=== PATIENT | male | born 1930 | race Caucasian/White ===

== ENCOUNTER → 2017-09-10 | Outpatient (CLI) | payer MEDICARE ==
[~2017-09-10] MED LIST: ASPIR 8181 MG PO; ATORVASTATIN CA40 MG PO; BENTYL10 MG PO; DIAZEPAM5 MG PO; ELMIRON100 MG PO; HCTZ PO; LOSARTAN POTASS25 MG PO; LOSARTAN POTASS50 MG PEG; METOPROLOL PO; METOPROLOL TART25 MG PO; MIRALAX17 GM; OMEPRAZOLE20 M1 PO; PANTOPRAZOLE SO40 MG PO; PLAVIX75 MG PO; STOOL SOFTENER50 MG PO; STOOL SOFTNERS PO; WARFARIN PO; XARELTO20 MG PO; ZOLOFT50 MG PO
--- NOTE | 2017-09-10 17:56 | Diagnostic Imaging Report ---
PROCEDURE: Frontal and lateral views of the chest. COMPARISON: Chest radiograph 05/12/2017 INDICATIONS: MESOTHELIOMA FINDINGS: Lines/tubes: Left chest wall port tip overlying the azygos vein, unchanged. Lungs: The lungs are well inflated. Linear opacities in the right lung base with diaphragmatic tenting likely represents atelectasis. Pleura: Mildly increased small right pleural effusion versus pleural thickening. There is no pneumothorax. Heart and mediastinum: Tortuous aorta with mild calcifications. Otherwise, the heart and the mediastinum are normal. Bones: No acute bony abnormality. IMPRESSION: 1. Mildly increased small right pleural effusion versus pleural thickening. 2. Left chest wall port tip again noted to project over the azygos vein. Dictated by: Jseus Damon M.D. on 09/10/2017 at 17:56 Electronically approved by: Jesus Damon M.D. on 09/10/2017 at 17:56
== END ==
LOC: RAD 16:06
PROVIDERS: ATTEND Internal Medicine Cardiovascular Disease
DX: C45.0 Mesothelioma of pleura (principal); C80.1 Malignant (primary) neoplasm, unspecified; I82.409 Acute embolism and thrombosis of unspecified deep veins of unspecified lower extremity; I26.99 Other pulmonary embolism without acute cor pulmonale
CPT/HCPCS: 71046

== ENCOUNTER → 2018-01-19 | Outpatient (CLI) | payer MEDICARE | LOC: RESP 08:37 | PROVIDERS: ATTEND Internal Medicine Critical Care Medicine | DX: I82.409 Acute embolism and thrombosis of unspecified deep veins of unspecified lower extremity (principal); I26.99 Other pulmonary embolism without acute cor pulmonale; C45.0 Mesothelioma of pleura; C80.1 Malignant (primary) neoplasm, unspecified | CPT/HCPCS: 94060; 94727; 94729 ==

== ENCOUNTER 2019-08-11 12:31 | Emergency (ER) | payer MEDICARE ==
[~2019-08-11] VITALS: Ht 172.7 cm; Wt 63.0 kg
--- OUTSIDE RECORDS SUMMARY | 2019-08-11 12:37 | XMS REPORT ---
Author Author [facility] Address Unknown Phone Unavailable Care Team Providers Care Maintenance And Utilities Supervisor Name Role Phone Dolores PETERS Unavailable Unavailable Madalyn PRESTON Unavailable Unavailable GENE GUZMAN Unavailable Unavailable NANCY MARKS Unavailable Unavailable Payers Payer Name Policy Type Policy Number Effective Date Expiration Date Problems This patient has no known problems. Allergies, Adverse Reactions, Alerts Allergy Name Allergy Type Status Severity Reaction(s) Onset Date Inactive Date Treating Clinician Comments No Known Allergies DA Active U 2018-11-26 00:00:00 No Known Allergies DA Active U 2018-11-25 00:00:00 No Known Allergies DA Active U 2017-07-23 00:00:00 No Known Allergies DA Active U 2014-06-08 00:00:00 Medications This patient has no known medications. Encounters Start Date/Time End Date/Time Encounter Type Admission Type Attending Clinicians Care Facility Care Department Encounter ID 2019-03-10 08:27:31 Outpatient [facility] [id number] Results Test Description Test Time Test Comments Text Results Atomic Results Result Comments PLEURAL FLUID 2019-08-04 16:55:00 RUN DATE: 08/04/19 [place] [facility] PAGE 1 RUN TIME: 1655 Specimen Inquiry RUN USER: INTERFACE PATIENT: SUSAN VAN LOC: [place] U #: [id number] AGE/SX: 88/M ROOM: 2047 RE07/28/19REG DR: Gene Guzman MD : 32 BED: A DIS: STATUS: ADM IN TLOC: SPEC #: [id number] RECD: 08/03/19 STATUS: LAMBERTO REQ #: [id number] REINIER: 08/02/19- SUBM DR: Dread Garrett MD ENTERED: 08/03/19 SP TYPE: PLEURAL FL OTHR DR: Luisito Lagunas MD, George M MD Tahir, Faiza MDORDERED: GROSS [place]: [place] [address] [place] [address] Dread Garrett MD [address] [place] [address] Shoshana Preston MD [address] [facility] [address] [place] [address] [place] [address] [place] [address] PROCEDURES: GROSS (08/04/19-1440) TISSUES: PLEURAL FLUID, NOS - 30 ML DARK REDDEST BROWN CLINICAL HISTORY COLLECTION DATE: 08/02/2019 PLEURAL EFFUSION; MESOTHELIOMA COMMENT Intradepartmental consultation: DMW. CONTINUED ON NEXT PAGE RUN DATE: 08/04/19 [facility] PAGE 2 RUN TIME: 1655 Specimen Inquiry RUN USER: INTERFACE SPEC #: [id number] PATIENT: SUSAN VAN #[id number] (Continued) FINAL DIAGNOSIS Pleural fluid, thoracentesis: NON-DIAGNOSTIC FEW MIXED INFLAMMATORY CELLS IN HEAVY BACKGROUND OF BLOOD RRB/camila D 03970, 04782 MACROSCOPIC The specimen is designated "pleural fluid" and consists of 30 mL of dark red-brown fluid for concentration and evaluation. GROSS PERFORMED AT [facility] [address] [place] [address] [phone] MICROSCOPIC Two smear slides, a cytospin and cell block are prepared from the fluid. A heavy background of blood is present. Only a few scattered mixed inflammatory cells are seen. A few nuclei are present that are stripped of cytoplasm that may represent degenerating mesothelial type cells. No cytologically atypical cells are appreciated. Correlation is necessary. All of the stains, including any controls performed, stain appropriately. MICROSCOPIC PERFORMED AT [facility] [address] [place] [address] (p)[phone] PERFORMING SITE Diagnosis performed at: [facility] [address] [place], [place] [address] CONTINUED ON NEXT PAGE RUN DATE: 08/04/19 [place] [facility] PAGE 3 RUN TIME: 1655 Specimen Inquiry RUN USER: INTERFACE SPEC #: [id number] PATIENT: SUSAN VAN #[id number] (Continued) Signed SIGNATURE ON FILE Jaylen Davenport MD 08/04/19 1655 END OF REPORT BODY FLUID CELL CT/DIFF 2019-08-03 09:51:00 FLUID SOURCE (test code=SOURCEFL) PLEURAL FLD FLUID COLOR (test code=COLFL) RED COLORLESS FLUID APPEARANCE (test code=APPFL) HAZY FLUID WBC AUTO (test code=WBCFLA) 113 cells/uL FLUID RBC AUTO (test code=RBCFLA) 341608 cells/uL FLUID TOTAL CELLS (test code=TCFL) 114 cells/uL >0 Fluid WBC RBC PMN% MN%Type cells/uL cells/uL CSF (0-5) n/a (2+/-4) (90+/-20)Peritoneal n/a n/a n/a n/aPleural n/a n/a n/a n/aSynovial <200 n/a <25% <75% CSF (0-30) n/a (4+/-4) (90+/-20) FLUID POLY (test code=POLYFL) 59.0 % FLUID LYMPHOCYTE (test code=LYMPHFL) 33.0 % FLUID MACROPHAGE (test code=MACFL) 8.0 % FLUID COMMENT (test code=COMFL) PATHOLOGST.TO REVIEW TOTAL CELLS COUNTED ON DIFF (test code=TOTCELLFL) 100 cells REVIEWED BY (test code=REVIEW) PATHOLOGIST Reviewed by OMAR Joshua:BLOODY SAMPLE. FLUID [id number] 09:51:00* Test Item Value Reference Range Comments FLUID PH (test code=PHFL) 7.0 6.8-7.6 FLUID [id number] 09:51:00* Test Item Value Reference Range Comments FLUID GLUCOSE (test code=GLUFL) 61 mg/dL FLUID [id number] 09:51:00* Test Item Value Reference Range Comments FLUID PROTEIN (test code=PROTFL) 2.9 gram/dL FLUID [id number] 09:51:00* Test Item Value Reference Range Comments FLUID LDH (test code=LDHFL) 625 IUnit/L - SP THORACENTESIS [id number] 08:49:00 Name: SUSAN VAN [facility] : 1930 Age/S: 88 / M [address] Unit #: [id number] Loc: [place] [address] Phys: Shoshana Preston MD Acct: [id number] Dis Date: Status: PRE CLI PHONE #: [phone] Exam Date: 08/02/2019 1710 FAX #: [phone] Reason: / EXAMS: CPT CODE: [id number] SP THORACENTESIS W/IMAG 95005 Fluoro Time: DAP (Gy m2): Air Kerma (mGy): REASON FOR EXAM: Loculated right pleural effusion. PROCEDURE: Ultrasound and CT-guided aspiration of right subpulmonic loculated pleural effusion Location:[facility] Bpfp-up-tdlt procedure time is approximately: 45 minutes FINDINGS: After informed consent was obtained, the patient was brought to CT and placed supine on the table. All elements of maximal sterile barrier technique were followed. Prior to the biopsy, axial images of the lower chest were obtained without intravenous contrast. Images of the CT were reviewed and the loculated subpulmonic right pleural effusion was localized. A safe pathway was found between the subcutaneous entry site and the loculated subpulmonic right pleural effusion. The access site was prepped and draped in the usual sterile fashion. A guiding needle was advanced into loculated subpulmonic right pleural effusion. Attempt to aspirate fluid was not successful. Ultrasound was then used to visualize the fluid portion of the loculated effusion. Under ultrasound guidance, a guiding needle was advanced into the fluid pocket. CT was used to reconfirm the location of the needle tip. A guidewire was inserted and the tract was dilated to accept an 8 Burmese pigtail drainage tube. Approximately 100 cc of dark brownish exudative fluid was removed. Samples were submitted to the lab for analysis. The catheter was then removed MEDICATIONS: 1 mg of Dilaudid COMPLICATIONS: No immediate Blood loss: Less than 5 mL Fluoroscopic dose:342 mGy IMPRES FABIAN: Technically successful percutaneous drainage of loculated subpulmo celestino right pleural effusion. at 0849 Reported and signed by: Dread Garrett M.D. PAGE 1 Signed Report (CONTIN UED) Name: SUSAN VAN [facility] : 1930 Age/S: 88 / M [address] Unit #: [id number] Loc: [place] [address] Phys: Shoshana Salmeron MD Acct: [id number] Dis Date: Status: PRE CLI PHONE #: [phone] Exam Date: 08/02/2019 1710 FAX #: Reason: / EXAMS: CPT CODE: [id number] SP THORACE NTESIS W/IMAG 34761 Fluoro Time: DAP ( Gy m2): Air Kerma (mGy): <Continued> CC: Gene Guzman MD; Shoshana Preston MD Technologist: NEDRA MOBLEY [facility] Trnscb Date/Time: 08/03/2019 (0849) RimaWYL PAGE 2 Signed Report - XR CHEST 1 [id number] 21:40:00 FAX: Gene Hernandez MD [phone] Leonardo: St: ADM Name: SUSAN GONG [facility] : [birth year] Age/S: 88/M [address] Unit #: [id number] Loc: [address] [place] [address] Phys: Dread Garrett MD Acct: [id number] Dis Date: Status: ADM IN PHONE #: [phone] Exam Date: 08/02/20192137 FAX #: [phone] Reason: S/P THORACENTESIS EXAMS: CPT CODE: [id number] XR CHEST 1 V 88852 REASON FOR EXAM: S/P THORA CENTESIS Exam Order Date: 08/02/2019 7:00 PM Ordering M.D.: Dread Garrett MD PROCEDURE: - XR CHEST 1 V COMP ARISON: CT chest earlier today at 11:06 AM FINDINGS: Right pleural pigtail catheter is redemonstrated however the patient has underg one interval drainage of a subpulmonic effusion. There are airspac e opacities in the mid to lower right lung zone which may represent any co mbination of residual effusion, atelectasis, and pneumonia. Loculated righ t pleural effusion also remains along the chest wall. Left lung is clear. Port-A-Cath is stable in position. Cardiomediastinal silhouette appears mildly prominent but is stable in size. Musculoskeletal struct ures are unchanged. Left humeral arthroplasty is again seen. IMP RESSION: Opacities in the mid to lower right lung following thoracentesi s may represent any comminution of residual effusion, atelectasis, and pneumonia. Location: [facility] Electronically Sig reyna by Reg Phillip MD on 08/02/2019 at 2140 Reported and signed by: Reg Phillip MD CC: Gene Guzman MD Technologist: URBAN BURNHAM RT; Elva Rojas(R) Trnscrd Date/Time/By: 08/02/2019 (2139) : By: [email or web address] Orig Print D/T: S: 08/02/2019 (2142) PAGE 1 Signed Report BODY FLUID CELL [id number] 20:01:00* Test Item Value Reference Range Comments FLUID SOURCE (test code=SOURCEFL) PLEURAL FLD FLUID COLOR (test code=COLFL) RED COLORLESS FLUID APPEARANCE (test code=APPFL) HAZY FLUID WBC AUTO (test code=WBCFLA) 113 cells/uL FLUID RBC AUTO (test code=RBCFLA) 655101 cells/uL FLUID TOTAL CELLS (test code=TCFL) 114 cells/uL >0 Fluid WBC RBC PMN% MN%Type cells/uL cells/uL CSF (0-5) n/a (2+/-4) (90+/-20)Peritoneal n/a n/a n/a n/aPleural n/a n/a n/a n/aSynovial <200 n/a <25% <75% CSF (0-30) n/a (4+/-4) (90+/-20) FLUID POLY (test code=POLYFL) 59.0 % FLUID LYMPHOCYTE (test code=LYMPHFL) 33.0 % FLUID MACROPHAGE (test code=MACFL) 8.0 % FLUID COMMENT (test code=COMFL) PATHOLOGST.TO REVIEW TOTAL CELLS COUNTED ON DIFF (test code=TOTCELLFL) 100 cells REVIEWED BY (test code=REVIEW) PATHOLOGIST FLUID [id number] 20:01:00* Test Item Value Reference Range Comments FLUID PH (test code=PHFL) 7.0 6.8-7.6 FLUID [id number] 20:01:00* Test Item Value Reference Range Comments FLUID GLUCOSE (test code=GLUFL) 61 mg/dL FLUID [id number] 20:01:00* Test Item Value Reference Range Comments FLUID PROTEIN (test code=PROTFL) 2.9 gram/dL FLUID [id number] 20:01:00* Test Item Value Reference Range Comments FLUID LDH (test code=LDHFL) 625 IUnit/L BODY FLUID CELL [id number] 18:38:00* Test Item Value Reference Range Comments FLUID SOURCE (test code=SOURCEFL) PLEURAL FLD FLUID COLOR (test code=COLFL) RED COLORLESS FLUID APPEARANCE (test code=APPFL) HAZY FLUID WBC AUTO (test code=WBCFLA) 113 cells/uL FLUID RBC AUTO (test code=RBCFLA) 575341 cells/uL FLUID TOTAL CELLS (test code=TCFL) 114 cells/uL >0 Fluid WBC RBC PMN% MN%Type cells/uL cells/uL CSF (0-5) n/a (2+/-4) (90+/-20)Peritoneal n/a n/a n/a n/aPleural n/a n/a n/a n/aSynovial <200 n/a <25% <75% CSF (0-30) n/a (4+/-4) (90+/-20) TOTAL CELLS COUNTED ON DIFF (test code=TOTCELLFL) cells REVIEWED BY (test code=REVIEW) PATHOLOGIST FLUID [id number] 18:38:00* Test Item Value Reference Range Comments FLUID PH (test code=PHFL) 7.0 6.8-7.6 FLUID [id number] 18:38:00* Test Item Value Reference Range Comments FLUID GLUCOSE (test code=GLUFL) 61 mg/dL FLUID [id number] 18:38:00* Test Item Value Reference Range Comments FLUID PROTEIN (test code=PROTFL) 2.9 gram/dL FLUID [id number] 18:38:00* Test Item Value Reference Range Comments FLUID LDH (test code=LDHFL) 625 IUnit/L BODY FLUID CELL [id number] 18:36:00* Test Item Value Reference Range Comments FLUID SOURCE (test code=SOURCEFL) PLEURAL FLD FLUID COLOR (test code=COLFL) RED COLORLESS FLUID APPEARANCE (test code=APPFL) HAZY FLUID WBC AUTO (test code=WBCFLA) 113 cells/uL FLUID RBC AUTO (test code=RBCFLA) 174036 cells/uL FLUID TOTAL CELLS (test code=TCFL) 114 cells/uL >0 Fluid WBC RBC PMN% MN%Type cells/uL cells/uL CSF (0-5) n/a (2+/-4) (90+/-20)Peritoneal n/a n/a n/a n/aPleural n/a n/a n/a n/aSynovial <200 n/a <25% <75% CSF (0-30) n/a (4+/-4) (90+/-20) TOTAL CELLS COUNTED ON DIFF (test code=TOTCELLFL) cells REVIEWED BY (test code=REVIEW) PATHOLOGIST FLUID [id number] 18:36:00* Test Item Value Reference Range Comments FLUID PH (test code=PHFL) 6.8-7.6 FLUID [id number] 18:36:00* Test Item Value Reference Range Comments FLUID GLUCOSE (test code=GLUFL) 61 mg/dL FLUID [id number] 18:36:00* Test Item Value Reference Range Comments FLUID PROTEIN (test code=PROTFL) 2.9 gram/dL FLUID [id number] 18:36:00* Test Item Value Reference Range Comments FLUID LDH (test code=LDHFL) 625 IUnit/L BODY FLUID CELL [id number] 18:34:00* Test Item Value Reference Range Comments FLUID SOURCE (test code=SOURCEFL) PLEURAL FLD FLUID COLOR (test code=COLFL) RED COLORLESS FLUID APPEARANCE (test code=APPFL) HAZY FLUID WBC (test code=WBCFL) per mm3 0-150 FLUID WBC AUTO (test code=WBCFLA) 113 cells/uL FLUID RBC (test code=RBCFL) per mm3 0-50 FLUID RBC AUTO (test code=RBCFLA) 118652 cells/uL FLUID TOTAL CELLS (test code=TCFL) 114 cells/uL >0 Fluid WBC RBC PMN% MN%Type cells/uL cells/uL CSF (0-5) n/a (2+/-4) (90+/-20)Peritoneal n/a n/a n/a n/aPleural n/a n/a n/a n/aSynovial <200 n/a <25% <75% CSF (0-30) n/a (4+/-4) (90+/-20) TOTAL CELLS COUNTED ON DIFF (test code=TOTCELLFL) cells REVIEWED BY (test code=REVIEW) PATHOLOGIST FLUID [id number] 18:34:00* Test Item Value Reference Range Comments FLUID PH (test code=PHFL) 6.8-7.6 FLUID [id number] 18:34:00* Test Item Value Reference Range Comments FLUID GLUCOSE (test code=GLUFL) 61 mg/dL FLUID [id number] 18:34:00* Test Item Value Reference Range Comments FLUID PROTEIN (test code=PROTFL) 2.9 gram/dL FLUID [id number] 18:34:00* Test Item Value Reference Range Comments FLUID LDH (test code=LDHFL) 625 IUnit/L BODY FLUID CELL [id number] 18:32:00* Test Item Value Reference Range Comments FLUID SOURCE (test code=SOURCEFL) PLEURAL FLD FLUID COLOR (test code=COLFL) RED COLORLESS FLUID APPEARANCE (test code=APPFL) HAZY FLUID WBC (test code=WBCFL) per mm3 0-150 FLUID RBC (test code=RBCFL) per mm3 0-50 FLUID TOTAL CELLS (test code=TCFL) cells/uL >0 TOTAL CELLS COUNTED ON DIFF (test code=TOTCELLFL) cells REVIEWED BY (test code=REVIEW) PATHOLOGIST FLUID [id number] 18:32:00* Test Item Value Reference Range Comments FLUID PH (test code=PHFL) 6.8-7.6 FLUID [id number] 18:32:00* Test Item Value Reference Range Comments FLUID GLUCOSE (test code=GLUFL) 61 mg/dL FLUID [id number] 18:32:00* Test Item Value Reference Range Comments FLUID PROTEIN (test code=PROTFL) 2.9 gram/dL FLUID [id number] 18:32:00* Test Item Value Reference Range Comments FLUID LDH (test code=LDHFL) 625 IUnit/L BODY FLUID CELL [id number] 18:10:00* Test Item Value Reference Range Comments FLUID SOURCE (test code=SOURCEFL) PLEURAL FLD FLUID COLOR (test code=COLFL) RED COLORLESS FLUID APPEARANCE (test code=APPFL) HAZY FLUID WBC (test code=WBCFL) per mm3 0-150 FLUID RBC (test code=RBCFL) per mm3 0-50 FLUID TOTAL CELLS (test code=TCFL) cells/uL >0 TOTAL CELLS COUNTED ON DIFF (test code=TOTCELLFL) cells REVIEWED BY (test code=REVIEW) PATHOLOGIST FLUID [id number] 18:10:00* Test Item Value Reference Range Comments FLUID PH (test code=PHFL) 6.8-7.6 FLUID [id number] 18:10:00* Test Item Value Reference Range Comments FLUID GLUCOSE (test code=GLUFL) mg/dL FLUID [id number] 18:10:00* Test Item Value Reference Range Comments FLUID PROTEIN (test code=PROTFL) gram/dL FLUID [id number] 18:10:00* Test Item Value Reference Range Comments FLUID LDH (test code=LDHFL) IUnit/L - CT GUID NDL [id number] 17:23:00 Name: SUSAN VAN [facility] : 1930 Age/S: 88 / M [address] [facility] Unit #: [id number] Loc: [place] [address] Phys: Shoshana Preston MD Acct: [id number] Dis Date: Status: PRE CLI PHONE #: [phone] Exam Date: 08/02/2019 1713 FAX #: [phone] Reason: THOROCENTESIS EXAMS: CPT [id number] [facility] [address] REASON FOR EXAM: Loculated right pleural effusion. PROCEDURE: Ultrasound and CT-guided aspiration of right subpulmonic loculated pleural effusion Location:[facility] Krkt-dl-tbaw procedure time is approximately: 45 minutes FINDINGS: After informed consent was obtained, the patient was brought to CT and placed supine on the table. All elements of maximal sterile barrier technique were followed. Prior to the biopsy, axial images of the lower chest were obtained without intravenous contrast. Images of the CT were reviewed and the loculated subpulmonic right pleural effusion was localized. A safe pathway was found between the subcutaneous entry site and the loculated subpulmonic right pleural effusion. The access site was prepped and draped in the usual sterile fashion. A guiding needle was advanced into loculated subpulmonic right pleural effusion. Attempt to aspirate fluid was not successful. Ultrasound was then used to visualize the fluid portion of the loculated effusion. Under ultrasound guidance, a guiding needle was advanced into the fluid pocket. CT was used to reconfirm the location of the needle tip. A guidewire was inserted and the tract was dilated to accept an 8 Burmese pigtail drainage tube. Approximately 100 cc of dark brownish exudative fluid was removed. Samples were submitted to the lab for analysis. The catheter was then removed MEDICATIONS: 1 mg of Dilaudid COMPLICATIONS: No immediate Blood loss: Less than 5 mL Fluoroscopic dose:342 mGy IMPRESSION: Technically successful percutaneous drainage of loculated subpulmonic right pleural effusion. at 1723 Reported and signed by: Dread Garrett M.D. PAGE 1 Signed Report (CONTINUED) Name: SUSAN VAN [facility] : 1930 Age/S: 88 / M [address] [facility] Unit #: [id number] Loc: [place] [address] Phys: Shoshana Preston MD Acct: [id number] Dis Date: Status: PRE CLI PHONE #: [phone] Exam Date: 08/02/2019 1713 FAX #: [phone] Reason: THOROCENTESIS EXAMS: CPT CODE: [id number] CT GUID NDL [facility] [address] <Continued> CC: Gene Guzman MD; Shoshana Preston MD Technologist:GERARD LUCAS, RT(R) CT CTDI: DLP: Trnscb Date/Time: 08/02/2019 (172) t.SDR.VTL Orig Print D/T: S: 08/02/2019 (1725) PAGE 2 Signed Report - CT CHEST W/O [id number] 12:07:00 Name: SUSAN VAN [facility] : 1930 Age/S: 88 / M [address] Unit #: [id number] Loc: [place] [address] Phys: Geeta Cedillo MD Acct: [id number] Di s Date: Status: ADM IN PHONE #: [phone] Exam Date: 08/02/2019 1113 FAX #: Reason: abscess EXAMS: CPT CODE: [id number] CT CHEST W/O CONTRAST 26815 HISTORY: Abscess. COMPARISON: CT chest from July 28, 2019. Location: [facility]. CT chest without contrast: Automated exposure control. Persistent loculated right costal pleural effusion demonstrating no si gnificant change. Small pleural catheter from a right anterior approach no ny again. Persistent bibasal segmental atelectasis and patchy infiltrate as well. No honeycombing or fibrosis or traction bronchiectasis. Loss of r ight lung volume and shift the mediastinum towards the left. Compensatory hyperinflation of the left lung. Small left effusion with dependent change s. Fusiform aneurysmal dilatation of the ascending aorta at 3.5 cm . Descending aorta is not aneurysmal. Normal caliber unopacified pul monary arteries. Right Port-A-Cath with the tip within the SVC. Unremarkab le thyroid glands. Esophageal wall is mildly thickened. Correlate for esop hagitis. No pathologic adenopathy. Cardiomegaly with moderate pericardial effusion. Correlate with echocardiography. Visualized upper abdome n demonstrating hyperplastic left adrenal. The subcutaneous tissues and th e musculature are normal in appearance. No lytic or blastic lesions are no ny within the bony skeleton. 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 IMPRESSION: Unchanged loculated small right lateral costal pleural effusion with subsegmental atelectasis and patchy right b malinda infiltrate. Small pigtail catheter from anterior approach noted aga in. No pathologic adenopathy. Mildly thickened esophageal wall. Correlat e for esophagitis. Stable ascending aortic aneurysm at 3.5 cm. at 1207 Reported and signed by: Balwinder Sherwood M.D. PAGE 1 Signed Report (CONTINUED) Na me: SUSAN VAN [facility] : Age/S: 88 / M [address] [facility] Unit #: [id number] Loc: [place], [place] [address] Phys: Cat Cedillo Acct: [id number] Dis Da te: Status: ADM IN PHONE #: Exam Date: 08/02/2019 1113 FAX #: [phone] Reason: abscess EXAMS: CPT CODE: [id number] CT CHEST W/O CONT RAST [address]240 <Continued> CC: Gene Guzman MD; Cat Cedillo MD Technologist:Monie Garcia,RT(R),CT CTDI: DLP: Trnscb Date/Time: 08/02/2019 (7471) t.HARRIETTR.TH4 Orig Print D/T: S: 08/02/2019 (5846) PAGE 2 Signed Report COMPREHENSIVE METABOLIC [id number] 05:29:00* Test Item Value Reference Range Comments SODIUM (test code=NA) 134 mmol/L 136-145 POTASSIUM (test code=K) 3.5 mmol/L 3.5-5.1 CHLORIDE (test code=CL) 101.0 mmol/L 98-107 CARBON DIOXIDE (test code=CO2) 24.0 mmol/L 21-32 ANION GAP (test code=GAP) 12.5 10-20 GLUCOSE (test code=GLU) 88 mg/dL 74-106 BLOOD UREA NITROGEN (test code=BUN) 13 mg/dL 7-18 GLOMERULAR FILTRATION RATE (test code=GFR) > 60 mL/min >=60 Estimated GFR by using Modified MDRD formula.Chronic kidney disease is defined as either kidney damageor GFR <60 mL/min/1.73 m2 for >3 months. CREATININE (test code=CREAT) 0.60 mg/dL 0.7-1.3 BUN/CREATININE RATIO (test code=BUN/CREA) 21.7 10-20 TOTAL PROTEIN (test code=PROT) 6.1 gram/dL 6.4-8.2 ALBUMIN (test code=ALB) 2.1 g/dL 3.4-5.0 GLOBULIN (test code=GLOB) 4.0 gram/dL 2.7-4.2 ALBUMIN/GLOBULIN RATIO (test code=A/G) 0.5 0.75-1.50 CALCIUM (test code=CA) 8.1 mg/dL 8.5-10.1 BILIRUBIN TOTAL (test code=BILT) 0.60 mg/dL 0.0-1.0 SGOT/AST (test code=AST) 22 IUnit/L 15-37 SGPT/ALT (test code=ALT) 12 IUnit/L 12-78 ALKALINE PHOSPHATASE TOTAL (test code=ALKP) 103 IUnit/L 45-117 Note change in reference range due to change in reagent. COMPREHENSIVE METABOLIC [id number] 05:22:00* Test Item Value Reference Range Comments SODIUM (test code=NA) 134 mmol/L 136-145 POTASSIUM (test code=K) 3.5 mmol/L 3.5-5.1 CHLORIDE (test code=CL) 101.0 mmol/L 98-107 CARBON DIOXIDE (test code=CO2) mmol/L 21-32 ANION GAP (test code=GAP) 10-20 GLUCOSE (test code=GLU) mg/dL 74-106 BLOOD UREA NITROGEN (test code=BUN) mg/dL 7-18 GLOMERULAR FILTRATION RATE (test code=GFR) mL/min >=60 CREATININE (test code=CREAT) mg/dL 0.7-1.3 BUN/CREATININE RATIO (test code=BUN/CREA) 10-20 TOTAL PROTEIN (test code=PROT) gram/dL 6.4-8.2 ALBUMIN (test code=ALB) g/dL 3.4-5.0 GLOBULIN (test code=GLOB) gram/dL 2.7-4.2 ALBUMIN/GLOBULIN RATIO (test code=A/G) 0.75-1.50 CALCIUM (test code=CA) mg/dL 8.5-10.1 BILIRUBIN TOTAL (test code=BILT) mg/dL 0.0-1.0 SGOT/AST (test code=AST) IUnit/L 15-37 SGPT/ALT (test code=ALT) IUnit/L 12-78 ALKALINE PHOSPHATASE TOTAL (test code=ALKP) IUnit/L 45-117 CBC W/AUTO [id number] 05:00:00* Test Item Value Reference Range Comments WHITE BLOOD CELL (test code=WBC) 6.0 K/mm3 4.5-12.5 RED BLOOD CELL (test code=RBC) 3.32 mill/mm3 4.0-5.8 HEMOGLOBIN (test code=HGB) 10.2 gram/dL 13.0-17.5 HEMATOCRIT (test code=HCT) 30.7 % 42.0-52.0 MEAN CELL VOLUME (test code=MCV) 92.5 fL 80-98 MEAN CELL HGB (test code=MCH) 30.7 picogram 27.0-33.0 MEAN CELL HGB CONCETRATION (test code=MCHC) 33.2 gram/dL 33.0-36.0 RED CELL DISTRIBUTION WIDTH (test code=RDW) 15.9 % 11.6-16.2 RED CELL DISTRIBUTION WIDTH SD (test code=RDW-SD) 53.2 fL 37.0-51.0 PLATELET COUNT (test code=PLT) 218 K/mm3 150-450 MEAN PLATELET VOLUME (test code=MPV) 9.1 fL 6.7-11.0 NEUTROPHIL % (test code=NT%) 68.7 % 39.0-69.0 IMMATURE GRANULOCYTE % (test code=IG%) 1.2 % 0.0-5.0 LYMPHOCYTE % (test code=LY%) 12.4 % 25.0-55.0 MONOCYTE % (test code=MO%) 12.7 % 0.0-10.0 EOSINOPHIL % (test code=EO%) 4.2 % 0.0-5.0 BASOPHIL % (test code=BA%) 0.8 % 0.0-1.0 NUCLEATED RBC % (test code=NRBC%) 0.0 % 0-0 NEUTROPHIL # (test code=NT#) 4.10 K/mm3 1.8-7.7 IMMATURE GRANULOCYTE # (test code=IG#) 0.07 x10 3/uL 0-0.03 LYMPHOCYTE # (test code=LY#) 0.74 K/mm3 1.0-5.0 MONOCYTE # (test code=MO#) 0.76 K/mm3 0-0.8 EOSINOPHIL # (test code=EO#) 0.25 K/mm3 0.0-0.5 BASOPHIL # (test code=BA#) 0.05 K/mm3 0.0-0.2 NUCLEATED RBC # (test code=NRBC#) 0.00 K/mm3 0.0-0.1 MANUAL DIFF REQUIRED (test code=MDIFF) NO BASIC METABOLIC [id number] 05:47:00* Test Item Value Reference Range Comments SODIUM (test code=NA) 135 mmol/L 136-145 POTASSIUM (test code=K) 3.7 mmol/L 3.5-5.1 CHLORIDE (test code=CL) 104.0 mmol/L 98-107 CARBON DIOXIDE (test code=CO2) 24.0 mmol/L 21-32 ANION GAP (test code=GAP) 10.7 10-20 GLUCOSE (test code=GLU) 96 mg/dL 74-106 BLOOD UREA NITROGEN (test code=BUN) 10 mg/dL 7-18 GLOMERULAR FILTRATION RATE (test code=GFR) > 60 mL/min >=60 Estimated GFR by using Modified MDRD formula.Chronic kidney disease is defined as either kidney damageor GFR <60 mL/min/1.73 m2 for >3 months. CREATININE (test code=CREAT) 0.50 mg/dL 0.7-1.3 BUN/CREATININE RATIO (test code=BUN/CREA) 20.0 10-20 CALCIUM (test code=CA) 8.1 mg/dL 8.5-10.1 BASIC METABOLIC [id number] 05:35:00* Test Item Value Reference Range Comments SODIUM (test code=NA) 135 mmol/L 136-145 POTASSIUM (test code=K) 3.7 mmol/L 3.5-5.1 CHLORIDE (test code=CL) 104.0 mmol/L 98-107 CARBON DIOXIDE (test code=CO2) mmol/L 21-32 ANION GAP (test code=GAP) 10-20 GLUCOSE (test code=GLU) mg/dL 74-106 BLOOD UREA NITROGEN (test code=BUN) mg/dL 7-18 GLOMERULAR FILTRATION RATE (test code=GFR) mL/min >=60 CREATININE (test code=CREAT) mg/dL 0.7-1.3 BUN/CREATININE RATIO (test code=BUN/CREA) 10-20 CALCIUM (test code=CA) mg/dL 8.5-10.1 - XR SHOULDER 2 + V [id number] 11:02:00 FAX: Lorelei Hutchinson [phone] Leonardo: St: [facility] FAX: Gene Hernandez MD [phone] Name: SUSAN VAN [facility] : 1930 Age/S: 88/M [address] [facility] Unit #: [id number] Loc: [place] [address] Phys: Lorelei Alas Acct: [id number] Dis Date: Status: ADM IN PHONE #: [phone] Exam Date: 07/29/2019 1045 FAX #: [phone] Reason: shoulder pain EXAMS: CPT CODE: [id number] XR SHOULDER 2 + [place] [address] HISTORY: shoulder pain TECHNIQUE: Internal/external rotation AP and scapular Y-views of the left shoulder. FI NDINGS: There is been prior left shoulder arthroplasty. Shoulder joint is appropriately aligned. No evidence of hardware loosening. Degene rative changes are present in the left acromioclavicular joint. Bone mineralization is decreased. There is a left subclavian Port-A-Ca th that terminates at the confluence of the SVC and left subclavian vein. Visualized left lung is clear. IMPRESSION: Prior l eft shoulder arthroplasty with no evidence of hardware loosening. No acu te bony abnormality. There are degenerative changes in the left rivers c lavicular joint. Location: [facility] Electronically Sign ed by Reg Phillip MD on 07/29/2019 at 1102 Reported and signed by: Reg Phillip MD CC: Lorelei Alas; Gene Guzman MD Technologist: RT ROSAS(R) Trnscrd Date/Time/By: 07/29/2019 (1108) : By: [email or web address] Orig Print D/T: S: 07/29/2019 (8039) PAGE 1 Signed Report BASIC METABOLIC [id number] 06:46:00* Test Item Value Reference Range Comments SODIUM (test code=NA) 130 mmol/L 136-145 POTASSIUM (test code=K) 4.6 mmol/L 3.5-5.1 CHLORIDE (test code=CL) 98.0 mmol/L 98-107 CARBON DIOXIDE (test code=CO2) 25.0 mmol/L 21-32 ANION GAP (test code=GAP) 11.6 10-20 GLUCOSE (test code=GLU) 92 mg/dL 74-106 BLOOD UREA NITROGEN (test code=BUN) 14 mg/dL 7-18 GLOMERULAR FILTRATION RATE (test code=GFR) > 60 mL/min >=60 Estimated GFR by using Modified MDRD formula.Chronic kidney disease is defined as either kidney damageor GFR <60 mL/min/1.73 m2 for >3 months. CREATININE (test code=CREAT) 0.90 mg/dL 0.7-1.3 BUN/CREATININE RATIO (test code=BUN/CREA) 15.6 10-20 CALCIUM (test code=CA) 8.4 mg/dL 8.5-10.1 BASIC METABOLIC [id number] 06:42:00* Test Item Value Reference Range Comments SODIUM (test code=NA) 130 mmol/L 136-145 POTASSIUM (test code=K) 4.6 mmol/L 3.5-5.1 CHLORIDE (test code=CL) 98.0 mmol/L 98-107 CARBON DIOXIDE (test code=CO2) mmol/L 21-32 ANION GAP (test code=GAP) 10-20 GLUCOSE (test code=GLU) mg/dL 74-106 BLOOD UREA NITROGEN (test code=BUN) mg/dL 7-18 GLOMERULAR FILTRATION RATE (test code=GFR) mL/min >=60 CREATININE (test code=CREAT) mg/dL 0.7-1.3 BUN/CREATININE RATIO (test code=BUN/CREA) 10-20 CALCIUM (test code=CA) mg/dL 8.5-10.1 CBC W/AUTO [id number] 06:30:00* Test Item Value Reference Range Comments WHITE BLOOD CELL (test code=WBC) 8.0 K/mm3 4.5-12.5 RED BLOOD CELL (test code=RBC) 3.53 mill/mm3 4.0-5.8 HEMOGLOBIN (test code=HGB) 10.9 gram/dL 13.0-17.5 HEMATOCRIT (test code=HCT) 32.6 % 42.0-52.0 MEAN CELL VOLUME (test code=MCV) 92.4 fL 80-98 MEAN CELL HGB (test code=MCH) 30.9 picogram 27.0-33.0 MEAN CELL HGB CONCETRATION (test code=MCHC) 33.4 gram/dL 33.0-36.0 RED CELL DISTRIBUTION WIDTH (test code=RDW) 15.9 % 11.6-16.2 RED CELL DISTRIBUTION WIDTH SD (test code=RDW-SD) 53.6 fL 37.0-51.0 PLATELET COUNT (test code=PLT) 218 K/mm3 150-450 RESULT VERIFIED BY REPEAT ANALYSIS MEAN PLATELET VOLUME (test code=MPV) 8.7 fL 6.7-11.0 NEUTROPHIL % (test code=NT%) 68.8 % 39.0-69.0 IMMATURE GRANULOCYTE % (test code=IG%) 1.2 % 0.0-5.0 LYMPHOCYTE % (test code=LY%) 15.0 % 25.0-55.0 MONOCYTE % (test code=MO%) 12.2 % 0.0-10.0 EOSINOPHIL % (test code=EO%) 2.2 % 0.0-5.0 BASOPHIL % (test code=BA%) 0.6 % 0.0-1.0 NUCLEATED RBC % (test code=NRBC%) 0.0 % 0-0 NEUTROPHIL # (test code=NT#) 5.52 K/mm3 1.8-7.7 IMMATURE GRANULOCYTE # (test code=IG#) 0.10 x10 3/uL 0-0.03 LYMPHOCYTE # (test code=LY#) 1.21 K/mm3 1.0-5.0 MONOCYTE # (test code=MO#) 0.98 K/mm3 0-0.8 EOSINOPHIL # (test code=EO#) 0.18 K/mm3 0.0-0.5 BASOPHIL # (test code=BA#) 0.05 K/mm3 0.0-0.2 NUCLEATED RBC # (test code=NRBC#) 0.00 K/mm3 0.0-0.1 - CT CHEST W/O [id number] 16:25:00 Name: SUSAN VAN [facility] : 1930 Age/S: 88 / M [address] [facility] Unit #: [id number] Loc: [place] [address] Phys: Cat Cedillo MD Acct: [id number] Dis Date: Status: ADM IN PHONE #: [phone] Exam Date: 07/28/2019 1530 FAX #: [phone] Reason: Empyema EXAMS: CPT CODE: [id number] CT CHEST W/O CONTRAST 78976 HISTORY: Empyema. COMPARISON: July 11, 2019. CT chest without contrast: Automated exposure control. Location: [facility]. Loculated right lateral costal pleural effusion noted again and is slightly smaller in presence of a pigtail catheter from a right anterior frontal approach. Loculation is also seen along the mediastinal and the diaphragmatic pleural surfaces. Patchy right basal infiltrate with subsegmental atelectasis is noted. Left lung is clear. No bronchiectasis, honeycombing or fibrosis or endobronchial lesions are noted. Fusiform aneurysmal ascending aorta at 3.5 cm. Descending aorta is not aneurysmal. Normal caliber unopacified pulmonary arteries. Unremarkable poorly visualized thyroid glands. Esophageal wall is not thickened. No pathologic adenopathy. Mild cardiom egaly with small pericardial effusion. Right Port-A-Cath with the tip with in SVC. Heavy atherosclerotic calcifications of the coronary arteries. Visualized upper abdomen demonstrates excretion of contrast from the kidneys likely from prior administration. This suggest renal insuffi ciency. Subcutaneous tissues and the musculature are unremarkable. Shoulde r prosthesis on the left. No lytic or blastic lesions are noted within the bony skeleton. DJD. IMPRESSION: Persistent lo culated costal, diaphragmatic and mediastinal pleural effusion on the ri ght side appears slightly small in presence of a small pigtail catheter. Patchy right lower lobe infiltrate with subsegmental atelectasis. No pa thologic adenopathy. Aneurysmal ascending aorta at 3.5 cm. Car diomegaly. Small pericardial effusion. at 1625 Reported and signed by: Balwinder Sherwood M.D. PAGE 1 Signed Report (CONTINUED) Name: SUSAN VAN [facility] : 1930 Age/S: 88 / M [address] Unit #: [id number] Loc: [place], [place] [address] Phys: Cat Cedillo MD Acct: [id number] Dis Date: Status: ADM IN PHONE #: [phone] Exam Date: 07/28/2019 1530 FAX #: [phone] Reason: Empyema EXAMS: CPT CODE: [id number] CT CHEST W/O CONTRAST 36536 < Continued> CC: Gene Guzman MD; Cat Cedillo MD Technologist:Skylar Mercedes RT(R); [facility] CTDI: DLP: Trnscb Date/Time: 07/28/2019 (6986) [email or web address] Orig Print D/T: S: 07/28/2019 (0025) PAGE 2 Signed Report BASIC METABOLIC [id number] 10:18:00* Test Item Value Reference Range Comments SODIUM (test code=NA) 127 mmol/L 136-145 POTASSIUM (test code=K) 4.5 mmol/L 3.5-5.1 CHLORIDE (test code=CL) 96.0 mmol/L 98-107 CARBON DIOXIDE (test code=CO2) 22.0 mmol/L 21-32 ANION GAP (test code=GAP) 13.5 10-20 GLUCOSE (test code=GLU) 87 mg/dL 74-106 BLOOD UREA NITROGEN (test code=BUN) 9 mg/dL 7-18 GLOMERULAR FILTRATION RATE (test code=GFR) > 60 mL/min >=60 Estimated GFR by using Modified MDRD formula.Chronic kidney disease is defined as either kidney damageor GFR <60 mL/min/1.73 m2 for >3 months. CREATININE (test code=CREAT) 0.90 mg/dL 0.7-1.3 BUN/CREATININE RATIO (test code=BUN/CREA) 10.0 10-20 CALCIUM (test code=CA) 8.2 mg/dL 8.5-10.1 BASIC METABOLIC [id number] 10:11:00* Test Item Value Reference Range Comments SODIUM (test code=NA) 127 mmol/L 136-145 POTASSIUM (test code=K) 4.5 mmol/L 3.5-5.1 CHLORIDE (test code=CL) 96.0 mmol/L 98-107 CARBON DIOXIDE (test code=CO2) mmol/L 21-32 ANION GAP (test code=GAP) 10-20 GLUCOSE (test code=GLU) mg/dL 74-106 BLOOD UREA NITROGEN (test code=BUN) mg/dL 7-18 GLOMERULAR FILTRATION RATE (test code=GFR) mL/min >=60 CREATININE (test code=CREAT) mg/dL 0.7-1.3 BUN/CREATININE RATIO (test code=BUN/CREA) 10-20 CALCIUM (test code=CA) 8.2 mg/dL 8.5-10.1 BASIC METABOLIC [id number] 05:17:00* Test Item Value Reference Range Comments SODIUM (test code=NA) 124 mmol/L 136-145 Results called to [id number] by LO 07/28/19 0517Critical results verified and read back by Nurse? Y POTASSIUM (test code=K) 4.5 mmol/L 3.5-5.1 CHLORIDE (test code=CL) 94.0 mmol/L 98-107 CARBON DIOXIDE (test code=CO2) 22.0 mmol/L 21-32 ANION GAP (test code=GAP) 12.5 10-20 GLUCOSE (test code=GLU) 86 mg/dL 74-106 BLOOD UREA NITROGEN (test code=BUN) 11 mg/dL 7-18 GLOMERULAR FILTRATION RATE (test code=GFR) > 60 mL/min >=60 Estimated GFR by using Modified MDRD formula.Chronic kidney disease is defined as either kidney damageor GFR <60 mL/min/1.73 m2 for >3 months. CREATININE (test code=CREAT) 0.90 mg/dL 0.7-1.3 BUN/CREATININE RATIO (test code=BUN/CREA) 12.2 10-20 CALCIUM (test code=CA) 8.7 mg/dL 8.5-10.1 URINALYSIS [id number] 04:20:00* Test Item Value Reference Range Comments UA COLOR (test code=COLU) Light-Yellow YELLOW UA APPEARANCE (test code=APPU) CLEAR CLEAR UA GLUCOSE DIPSTICK (test code=DGLUU) NEGATIVE mg/dL NEGATIVE UA BILIRUBIN DIPSTICK (test code=BILU) NEGATIVE mg/dL NEGATIVE UA KETONE DIPSTICK (test code=KETU) NEGATIVE mg/dL NEGATIVE UA SPECIFIC GRAVITY (test code=SGU) 1.033 1.001-1.035 UA BLOOD DIPSTICK (test code=LIZZY) 0.1 mg/dL (1+) mg/dL NEGATIVE UA PH DIPSTICK (test code=NATALIIA) 5.5 5.0-8.0 UA PROTEIN DIPSTICK (test code=PROU) NEGATIVE mg/dL NEGATIVE UA UROBILINIOGEN DIPSTICK (test code=URO) Normal mg/dL NEGATIVE UA NITRITE DIPSTICK (test code=MAYELA) NEGATIVE NEGATIVE UA LEUKOCYTE ESTERASE W REFLEX (test code=LEUUR) NEGATIVE Theresa/uL NEGATIVE UA WBC (test code=WBCU) 0-5 per HPF 0-5 UA RBC (test code=RBCU) 0-2 #/HPF 0-5 UA EPITHELIAL CELLS (test code=EPIU) None seen per HPF FEW UA BACTERIA (test code=BACU) NONE SEEN #/HPF NONE Urine Source? Clean Catch- CT ABD PELVIS [id number] 03:26:00 Name: SUSAN VAN [facility] : 1930 Age/S: 88 / M [address] [facility] Unit #: [id number] Loc: [place] [address] Phys: Celestino Henderson MD Acct: [id number] Di s Date: Status: REG ER PHONE #: Exam Date: 07/28/2019 025 FAX #: [phone] Reason: abdominal pain EXAMS: CPT CODE: [id number] CT ABD PELVIS W/CONT 65849 AFTER HOURS SERVICE ON: 3:[address] Scan of the Abdomen and Pelvis With Contrast Location Code M12 History: abdominal pain Technique: Axial and reconstructed coronal scans were performed on a h elical scanner post IV contrast. Delayed scans were also obtained. One or more of the following dose reduction techniques were used: [place] exposure control, adjustment of the mA and/or kV according to patient size, and/or utilization of iterative reconstruction technique. Findings: There is a partial visualized presumably right chest tube in place. There is stable loculated right pleural effusion compared to prior CT of 07/11/2019, over the entire lung is not visualized. There is a focal 2.27 abscess seen on axial image 21 with thick enhancing wall in the right cardiophrenic angle abutting the pericardium. There is enhancement of the inferior pleural margin indicating a probable empyema. There is a mild pericardial effusion. The abdomen and pelvis, the gallbladder, liver, pancreas and spleen are within normal limits. There are no peripancreatic inflammatory changes. The adrenal glan ds are thickened mildly, likely hyperplastic. There is also a small left adrenal adenoma measuring 1.1 cm. Kidneys are unremarkable. There is no hydronephrosis. Bladder is unremarkable. There is no pelvic free fluid. Fluid and air is present in the small bowel and colon which may in consistent with mild enterocolitis. The appendix is not visualized. IMPRESSION: No acute findings in the abdomen or pe lvis. Nonvisualization of the appendix. Locu lated right pleural effusion with thick irregular enhancement of PAGE 1 Signed Report (CONTINUED) Name: SUSAN VAN [facility] : 1930 Age /S: 88 / M [address] [facility] Unit #: [id number] Loc: [place] [address] Phys: Marie Henderson MD Acct: [id number] Dis Date: Status: REG ER PHONE #: [phone] Exam Date: 07/28/2019 0250 FAX #: [phone] Reason: abdominal pain EXAMS: CPT CODE: [id number] CT ABD PELVIS W/CONT 50627 <Continued> the pleural margin suggesting empyema. Suspected 2.2 cm thick-walled enhancing abscess in the cardiophrenic angle abutting the pericardium. Mild pericardial effusion. at 0326 Reported and signed by: Lakeisha Arnold M.D. CC: Gene Guzman MD; Marie Henderson MD Technologist:MATEO POLLACK CT CTDI: DLP: Trnscb Date/Time: 07/28/2019 (325) [email or web address] Orig Print D/T: S: 07/28/2019 (328) PAGE 2 Signed Report BASIC METABOLIC [id number] 02:39:00* Test Item Value Reference Range Comments SODIUM (test code=NA) 123 mmol/L 136-145 Results called to [id number] by [email or web address] 07/28/19 0239Critical results verified and read back by Nurse? Y POTASSIUM (test code=K) 4.7 mmol/L 3.5-5.1 CHLORIDE (test code=CL) 94.0 mmol/L 98-107 CARBON DIOXIDE (test code=CO2) 21.0 mmol/L 21-32 ANION GAP (test code=GAP) 12.7 10-20 GLUCOSE (test code=GLU) 92 mg/dL 74-106 BLOOD UREA NITROGEN (test code=BUN) 10 mg/dL 7-18 GLOMERULAR FILTRATION RATE (test code=GFR) > 60 mL/min >=60 Estimated GFR by using Modified MDRD formula.Chronic kidney disease is defined as either kidney damageor GFR <60 mL/min/1.73 m2 for >3 months. CREATININE (test code=CREAT) 1.00 mg/dL 0.7-1.3 BUN/CREATININE RATIO (test code=BUN/CREA) 10.0 10-20 CALCIUM (test code=CA) 9.2 mg/dL 8.5-10.1 HEPATIC FUNCTION [id number] 02:39:00* Test Item Value Reference Range Comments TOTAL PROTEIN (test code=PROT) 7.2 gram/dL 6.4-8.2 ALBUMIN (test code=ALB) 2.8 g/dL 3.4-5.0 GLOBULIN (test code=GLOB) 4.4 gram/dL 2.7-4.2 ALBUMIN/GLOBULIN RATIO (test code=A/G) 0.6 0.75-1.50 BILIRUBIN TOTAL (test code=BILT) 0.70 mg/dL 0.0-1.0 BILIRUBIN DIRECT (test code=BILD) 0.20 mg/dL 0.0-0.20 SGOT/AST (test code=AST) 27 IUnit/L 15-37 SGPT/ALT (test code=ALT) 15 IUnit/L 12-78 ALKALINE PHOSPHATASE TOTAL (test code=ALKP) 129 IUnit/L 45-117 Note change in reference range due to change in reagent. [id number] 02:39:00* Test Item Value Reference Range Comments LIPASE (test code=LIP) 54 U/L 73.0-393.0 [id number] 02:39:00* Test Item Value Reference Range Comments TROPONIN-I (test code=TROPI) <0.015 ng/mL 0-0.045 CBC W/O [id number] 02:07:00* Test Item Value Reference Range Comments WHITE BLOOD CELL (test code=WBC) 8.5 K/mm3 4.5-12.5 RED BLOOD CELL (test code=RBC) 4.08 mill/mm3 4.0-5.8 HEMOGLOBIN (test code=HGB) 12.4 gram/dL 13.0-17.5 HEMATOCRIT (test code=HCT) 38.0 % 42.0-52.0 MEAN CELL VOLUME (test code=MCV) 93.1 fL 80-98 MEAN CELL HGB (test code=MCH) 30.4 picogram 27.0-33.0 MEAN CELL HGB CONCETRATION (test code=MCHC) 32.6 gram/dL 33.0-36.0 RED CELL DISTRIBUTION WIDTH (test code=RDW) 15.8 % 11.6-16.2 PLATELET COUNT (test code=PLT) 168 K/mm3 150-450 MEAN PLATELET VOLUME (test code=MPV) 9.9 fL 6.7-11.0 - XR CHEST 1 [id number] 02:01:00 FAX: Gene Hernandez MD [phone] Leonardo: St: [facility] FAX: Marie Henderson MD Name: SUSAN VAN [facility] : 1930 Age/S: 88/M [address] [facility] Unit #: [id number] Loc: [place] [address] Phys: Marie Henderson MD Acct: [id number] Dis Date: Status: REG ER PHONE #: [phone] Exam Date: 07/28/2019 0139 FAX #: [phone] Reason: ABDOMINAL PAIN EXAMS: CPT CODE: [id number] XR CHEST 1 V 58690 AFTER HOURS SERVICE ON: 07/28/2019 2:00 AM AP Portable Chest Location Code M12 HISTORY: ABDOMINAL PAIN FINDINGS: There is no pneumothorax. Right basilar chest tube is in place. Patchy infiltrates again noted in the right lung base and a small effusion without significant change from 07/27/2019. Left lung is clear. Cardiac silhouette is mildly enlarged. Copious amount of air is present within the bowel loops seen in the upper abdomen. IMPRESSION: No significant change in small right pleural effusion and right basilar infiltrates. No pneumothorax. at 0201 Reported and signed by: Lakeisha Arnold M.D. CC: Gene Guzman MD; Marie Henderson MD Technologist: Malinda Shelton Trncard Date/Time/By: 07/28/2019 (200) : By: [email or web address] Orig Print D/T: S: 07/28/2019 (203) PAGE 1 Signed Report - XR CHEST 2 V 2019-07-27 13:50:00 FAX: Gene Hernandez MD [phone] Leonardo: O St: REG FAX: Shoshana Martin MD [phone] Name: SUSAN VAN [facility] : 1930 Age/S: 88/M [address] [facility] Unit #: [id number] Loc: [place] [address] Phys: Shoshana Preston MD Acct: [id number] Dis Date: Status: REG CLI PHONE #: [phone] Exam Date: 07/27/2019 1335 FAX #: [phone] Reason: C45.0 C80.1 126.99 EXAMS: CPT CODE: [id number] XR CHEST 2 V 36922 REASON FOR EXAM: C45.0 C80.1 126.99 Exam Order Date: 07/27/2019 1:29 PM Ordering MKennedy: Shoshana Preston MD PROCEDURE: - XR CHEST 2 V COMPARISON: Chest x-ray July 25, 2019 FINDINGS: The opacity in the right lung base, which may represent any combination of pleural effusion, atelectasis, and consolidation, appears grossly unchanged. The right pleural drain is also stable in position. Left shoulder arthroplasty and left subclavian Port -A-Cath are also similar appearing to the prior exam. The ri ght upper lung and the left lung are clear. The cardiomediastinal silhouet te appears mildly enlarged but is stable in size. Gaseous distention of th e visualized GI tract is again noted. IMPRESSION: No sig nificant change from prior exam. Location: [facility] Ginna ctronically Signed by Reg Phillip MD on 07/27/2019 at 1350 Reported and signed by: Reg Phillip MD CC: Gene Guzman MD; Shoshana Preston MD Technologist: RT Johnny(Deloris) Trnscrd Date/Time/By: 07/27/2019 (2325) : By: [email or web address] Orig Print D/T: S: 07/27/2019 (1599) PAGE 1 Signed Report BASIC METABOLIC [id number] 02:44:00* Test Item Value Reference Range Comments SODIUM (test code=NA) 131 mmol/L 136-145 POTASSIUM (test code=K) 4.4 mmol/L 3.5-5.1 CHLORIDE (test code=CL) 98.0 mmol/L 98-107 CARBON DIOXIDE (test code=CO2) 24.0 mmol/L 21-32 ANION GAP (test code=GAP) 13.4 10-20 GLUCOSE (test code=GLU) 91 mg/dL 74-106 BLOOD UREA NITROGEN (test code=BUN) 13 mg/dL 7-18 GLOMERULAR FILTRATION RATE (test code=GFR) 57 mL/min >=60 Estimated GFR by using Modified MDRD formula.Chronic kidney disease is defined as either kidney damageor GFR <60 mL/min/1.73 m2 for >3 months. CREATININE (test code=CREAT) 1.20 mg/dL 0.7-1.3 BUN/CREATININE RATIO (test code=BUN/CREA) 10.8 10-20 CALCIUM (test code=CA) 9.2 mg/dL 8.5-10.1 [id number] 02:44:00* Test Item Value Reference Range Comments TROPONIN-I (test code=TROPI) 0.021 ng/mL 0-0.045 HEPATIC FUNCTION [id number] 02:42:00* Test Item Value Reference Range Comments TOTAL PROTEIN (test code=PROT) 6.7 gram/dL 6.4-8.2 ALBUMIN (test code=ALB) 2.5 g/dL 3.4-5.0 GLOBULIN (test code=GLOB) 4.2 gram/dL 2.7-4.2 ALBUMIN/GLOBULIN RATIO (test code=A/G) 0.6 0.75-1.50 BILIRUBIN TOTAL (test code=BILT) 0.50 mg/dL 0.0-1.0 BILIRUBIN DIRECT (test code=BILD) 0.10 mg/dL 0.0-0.20 SGOT/AST (test code=AST) 42 IUnit/L 15-37 SGPT/ALT (test code=ALT) 16 IUnit/L 12-78 ALKALINE PHOSPHATASE TOTAL (test code=ALKP) 112 IUnit/L 45-117 Note change in reference range due to change in reagent. [id number] 02:42:00* Test Item Value Reference Range Comments LIPASE (test code=LIP) 156 U/L 73.0-393.0 BASIC METABOLIC [id number] 02:35:00* Test Item Value Reference Range Comments SODIUM (test code=NA) 131 mmol/L 136-145 POTASSIUM (test code=K) 4.4 mmol/L 3.5-5.1 CHLORIDE (test code=CL) 98.0 mmol/L 98-107 CARBON DIOXIDE (test code=CO2) mmol/L 21-32 ANION GAP (test code=GAP) 10-20 GLUCOSE (test code=GLU) mg/dL 74-106 BLOOD UREA NITROGEN (test code=BUN) mg/dL 7-18 GLOMERULAR FILTRATION RATE (test code=GFR) mL/min >=60 CREATININE (test code=CREAT) mg/dL 0.7-1.3 BUN/CREATININE RATIO (test code=BUN/CREA) 10-20 CALCIUM (test code=CA) mg/dL 8.5-10.1 [id number] 02:35:00* Test Item Value Reference Range Comments TROPONIN-I (test code=TROPI) ng/mL 0-0.045 CBC W/O [id number] 02:11:00* Test Item Value Reference Range Comments WHITE BLOOD CELL (test code=WBC) 7.7 K/mm3 4.5-12.5 RED BLOOD CELL (test code=RBC) 3.61 mill/mm3 4.0-5.8 HEMOGLOBIN (test code=HGB) 11.2 gram/dL 13.0-17.5 HEMATOCRIT (test code=HCT) 33.5 % 42.0-52.0 MEAN CELL VOLUME (test code=MCV) 92.8 fL 80-98 MEAN CELL HGB (test code=MCH) 31.0 picogram 27.0-33.0 MEAN CELL HGB CONCETRATION (test code=MCHC) 33.4 gram/dL 33.0-36.0 RED CELL DISTRIBUTION WIDTH (test code=RDW) 15.9 % 11.6-16.2 PLATELET COUNT (test code=PLT) 204 K/mm3 150-450 MEAN PLATELET VOLUME (test code=MPV) 9.0 fL 6.7-11.0 - XR CHEST 1 [id number] 00:25:00 FAX: Jose L Soares MD Leonardo: St: [facility] FAX: Gene Hernandez MD [phone] Name: SUSAN VAN [facility] : 1930 Age/S: 88/M [address] [facility] Unit #: [id number] Loc: [place] [address] Phys: Jose L Soares MD Acct: [id number] Dis Date: Status: REG ER PHONE #: [phone] Exam Date: 07/25/201921 FAX #: [phone] Reason: CHEST PAIN EXAMS: CPT CODE: [id number] XR CHEST 1 V [id number] Location: H3 Chest x-ray exam, AP frontal projection, one view, 07/25/19 Comparison exam: 07/15/19 chest x-ray exam CLINICAL HISTORY: Chest pain, ER presentation Again right-sided drainage catheter identified. Hazy density with reticulonodular identified at the right lung base unchanged to the prior exam. Mediport catheter in situ. No clear evolving process. Heart size is within normal limits. IMPRESSION: No change from the prior exam of 07/15/19. Right-sided drainage catheter seen in situ presumably in the right pleural space. There is continued presence of reticular nodularity at the right lung base and with a small right-sided pleural effusion likely present at 0025 Reported and signed by: Margie Fowler M.D. CC: Jose L Soares MD; Gene Guzman MD Technologist: Malinda Shelton Trnscrd Date/Time/By: 07/26/2019 (0025) : By: [email or web address] Orig Print D/T: S: 07/26/2019 (0028) PAGE 1 Signed Report - SP PERC [id number] 22:03:00 Name: SUSAN VAN [facility] : 1930 Age/S: 88 / M [address] [facility] Unit #: [id number] Loc: [place] [address] Phys: Gene Guzamn MD Acct: [id number] Dis Date: [id number] Status: DIS IN PHONE #: [phone] Exam Date: 07/15/2019 1240 FAX #: [phone] Reason: / EXAMS: CPT CODE: [id number] SP PERC DRAIN 50401 Fluoro Time: 100 DAP (Gy m2): 2.04 Air Kerma (mGy): 10 EXAM: Insertion of a tunneled pleural drainage catheter with sonographic and fluoroscopic guidance. INFORMATION: Patient with mesothelioma. She presents with a partially loculated right pleural effusion. TECHNIQUE AND FINDINGS: Informed consent was obtained and the patient was placed in supine oblique position on the procedure table. General anesthesia was initiated. The patient's skin in the right upper anterior lateral chest wall region was prepped and draped in the usual sterile fashion. Ultrasound showed an oval-shaped partially loculated right pleural effusion. Marcaine was administered and using sonographic guidance an 18-gauge Chiba needle was inserted into the fluid collection. Brownish hemorrhagic pleural fluid was aspirated and a sample was sent to the lab for Gram stain and cultures. Subsequently contrast material was injected demonstrating relatively good distribution within the larger fluid collection with only minor septations. An 035 guidewire was inserted, sequential dilatation was performed and a 15- Burmese peel-away sheath was then inserted. Subsequently, the drainage catheter was trimmed to proper length. A subcutaneous tunnel was created and the cuff drainage catheter was inserted along the right lateral chest wall. 150 mL of brownish pleural fluid were drained. The tunneled catheter was then sutured to the skin. No complications. IMPRESSION: Successful insertion of a tunneled pleural drainage catheter into a partially loculated right pleural effusion using sonogra phic and fluoroscopic guidance and general anesthesia. Fluoroscopy Time: 100 sec CAK : 10 mGy DAP : 2040 mGy sq cm Location code: [facility] PAGE 1 Signed Report (CONTINUED) Name: SUSAN VAN [facility] : 1930 Age/S: 88 / M [address] [facility] Unit #: [id number] Loc: [place] [address] Phys: Gene Guzman MD Acct: [id number] Dis Date: [id number] Status: DIS IN PHONE #: [phone] Exam Date: 12/2019 1248 FAX #: [phone] Reason: / EXAMS: CPT CODE: [id number] SP PERC DRAIN 75 989 Fluoro Time: 100 DAP (Gy m2): 2.04 Air Kerma (mGy): 1 0 <Continued> at 2202 Reported and signed by: Duy Broderick M.D. CC: Gene Guzman MD Technologist: NEDRA MOBLEY VIDEO GAME TECHNICIAN Trnscb Date/Time: 07/17/2019 (2202) Sathya Orig Print D/T: S: 07/17/2019 (2206) PAGE 2 Signed Report PROTHROMBIN [id number] 15:30:00* Test Item Value Reference Range Comments PROTHROMBIN TIME PATIENT (test code=PTP) 12.6 seconds 9.0-14.0 INTERNATIONAL NORMAL RATIO (test code=INR) 1.1 0.8-1.2 The therapeutic range for oral anticoagulant therapy formost indications is an international normalized ratio (INR)of between 2.0 and 3.0. The recommended therapeutic INRrange for various clinical situations is listed below: Clinical Situation INR range Pulmonary e mbolism treatment (2.0-3.0)Venous thrombosis treatmentVenous thrombosis prophylaxis (high risk surgery)Prevention of systemic embolism from: Acute myocardial infarction Valvular heart disease Atrial fibrillation Mechanical prosthetic heart valves (2.5-3.5) PT IN SPECIALS FOR A PROCEDURE. RN AND IN SPECIALS SAIDTHEY DON'T NEED IT FOR THEIR PROCEDURE TO GET IT WHEN HEGETS BACK TO FLOOR. V.LAB.PM 07/15/19 1157 [place] ROBERSON RN.TOYLOR [id number] V.LAB.SP3 07/15/19 1059PATIENT NOT IN ROOMTHROMBOPLASTIN TIME [id number] 15:30:00* Test Item Value Reference Range Comments THROMBOPLASTIN TIME PARTIAL (test code=PTT) 26.0 seconds 25.0-36.5 PT IN SPECIALS FOR A PROCEDURE. RN AND IN SPECIALS SAIDTHEY DON'T NEED IT FOR THEIR PROCEDURE TO GET IT WHEN HEGETS BACK TO FLOOR. V.LAB.PM 07/15/19 1157 [place] ROBERSON RN.TOYLOR [id number] V.LAB.SP3 07/15/19 1059PATIENT NOT IN ROOM- XR CHEST 1 V 2019-07-15 13:28:00 FAX: Gene Hernandez MD [phone] Leonardo: B St: ADM Name: SUSAN GONG [facility] : [birth year] Age/S: 88/M [address] [facility] Unit #: [id number] Loc: V.4036 [place] [address] Phys: Duy Broderick MD Acct: [id number] Dis Date: Status: ADM IN PHONE #: [phone] Exam Date: 07/15/2019 1316 FAX #: [phone] Reason: Mesothelioma; st.p. post R pleural drain (Aspir EXAMS: CPT CODE: [id number] XR CHEST 1 V 94924 REASON FOR EXAM: Mesotheli mazin; st.p. post R pleural drain (Aspira); Exam Order Date: 0 1:04 PM Ordering M.D.: Duy Broderick MD PROCE DURE: - XR CHEST 1 V COMPARISON: Chest x-ray July 11, [address] of the chest. 2019 FINDINGS: Right-side d pleural drain has been placed. Loculated right-sided pleural effusion wi th pleural nodules are unchanged from the prior exam. Left lung is grossly clear. The cardiac mediastinal silhouette is enlarged but stable in size. Left subclavian Port-A-Cath is unchanged in position. Bone mineralization is decreased. There is scoliosis of the spine. Inco mpletely visualized hardware is present in the left shoulder. The visualiz ed upper abdomen is within normal limits. IMPRESSION: Interval placement of drainage catheter in the right pleural space. Remaining findings are unchanged. Location: [facility] at 1328 Reported and signed by: Reg Phillip MD CC: Gene Guzman MD Technologist: Shelby Sams RT(R) Trnscrd Date/Time/By: 07/15/2019 (1035) : By: [id number] Orig Print D/T: S: 07/15/2019 (0328) PAGE 1 Signed Report CBC W/AUTO DIFF 2019-07-15 04:26:00* Test Item Value Reference Range Comments WHITE BLOOD CELL (test code=WBC) 6.2 K/mm3 4.5-12.5 RED BLOOD CELL (test code=RBC) 3.77 mill/mm3 4.0-5.8 HEMOGLOBIN (test code=HGB) 11.6 gram/dL 13.0-17.5 HEMATOCRIT (test code=HCT) 35.5 % 42.0-52.0 MEAN CELL VOLUME (test code=MCV) 94.2 fL 80-98 MEAN CELL HGB (test code=MCH) 30.8 picogram 27.0-33.0 MEAN CELL HGB CONCETRATION (test code=MCHC) 32.7 gram/dL 33.0-36.0 RED CELL DISTRIBUTION WIDTH (test code=RDW) 15.3 % 11.6-16.2 RED CELL DISTRIBUTION WIDTH SD (test code=RDW-SD) 52.5 fL 37.0-51.0 PLATELET COUNT (test code=PLT) 98 K/mm3 150-450 RESULT VERIFIED BY REPEAT ANALYSIS MEAN PLATELET VOLUME (test code=MPV) 10.8 fL 6.7-11.0 NEUTROPHIL % (test code=NT%) 60.6 % 39.0-69.0 IMMATURE GRANULOCYTE % (test code=IG%) 0.6 % 0.0-5.0 LYMPHOCYTE % (test code=LY%) 20.9 % 25.0-55.0 MONOCYTE % (test code=MO%) 11.3 % 0.0-10.0 EOSINOPHIL % (test code=EO%) 5.8 % 0.0-5.0 BASOPHIL % (test code=BA%) 0.8 % 0.0-1.0 NUCLEATED RBC % (test code=NRBC%) 0.0 % 0-0 NEUTROPHIL # (test code=NT#) 3.74 K/mm3 1.8-7.7 IMMATURE GRANULOCYTE # (test code=IG#) 0.04 x10 3/uL 0-0.03 LYMPHOCYTE # (test code=LY#) 1.29 K/mm3 1.0-5.0 MONOCYTE # (test code=MO#) 0.70 K/mm3 0-0.8 EOSINOPHIL # (test code=EO#) 0.36 K/mm3 0.0-0.5 BASOPHIL # (test code=BA#) 0.05 K/mm3 0.0-0.2 NUCLEATED RBC # (test code=NRBC#) 0.00 K/mm3 0.0-0.1 MANUAL DIFF REQUIRED (test code=MDIFF) NO, ONLY SCAN NEEDED DIFFERENTIAL [id number] 04:26:00* Test Item Value Reference Range Comments STAIN ACCEPTABILITY (test code=STN ACCEPTABLE) STAIN ACCEPTABLE POIKILOCYTOSIS (test code=POIK) 2+ ANISOCYTOSIS (test code=ANISO) 2+ CHESTER CELLS (test code=CHESTER) 2+ NONE ACANTHOCYTES (test code=ACAN) 1+ NONE PLATELET ESTIMATE (test code=PLTEST) DECREASED PLATELET MORPHOLOGY (test code=PLTMORPH) NORMAL BASIC METABOLIC [id number] 03:21:00* Test Item Value Reference Range Comments SODIUM (test code=NA) 133 mmol/L 136-145 POTASSIUM (test code=K) 4.5 mmol/L 3.5-5.1 CHLORIDE (test code=CL) 101.0 mmol/L 98-107 CARBON DIOXIDE (test code=CO2) 25.0 mmol/L 21-32 ANION GAP (test code=GAP) 11.5 10-20 GLUCOSE (test code=GLU) 87 mg/dL 74-106 BLOOD UREA NITROGEN (test code=BUN) 12 mg/dL 7-18 GLOMERULAR FILTRATION RATE (test code=GFR) > 60 mL/min >=60 Estimated GFR by using Modified MDRD formula.Chronic kidney disease is defined as either kidney damageor GFR <60 mL/min/1.73 m2 for >3 months. CREATININE (test code=CREAT) 0.80 mg/dL 0.7-1.3 BUN/CREATININE RATIO (test code=BUN/CREA) 15.0 10-20 CALCIUM (test code=CA) 8.7 mg/dL 8.5-10.1 CBC W/AUTO [id number] 02:59:00* Test Item Value Reference Range Comments WHITE BLOOD CELL (test code=WBC) 6.2 K/mm3 4.5-12.5 RED BLOOD CELL (test code=RBC) 3.77 mill/mm3 4.0-5.8 HEMOGLOBIN (test code=HGB) 11.6 gram/dL 13.0-17.5 HEMATOCRIT (test code=HCT) 35.5 % 42.0-52.0 MEAN CELL VOLUME (test code=MCV) 94.2 fL 80-98 MEAN CELL HGB (test code=MCH) 30.8 picogram 27.0-33.0 MEAN CELL HGB CONCETRATION (test code=MCHC) 32.7 gram/dL 33.0-36.0 RED CELL DISTRIBUTION WIDTH (test code=RDW) 15.3 % 11.6-16.2 RED CELL DISTRIBUTION WIDTH SD (test code=RDW-SD) 52.5 fL 37.0-51.0 PLATELET COUNT (test code=PLT) 98 K/mm3 150-450 RESULT VERIFIED BY REPEAT ANALYSIS MEAN PLATELET VOLUME (test code=MPV) 10.8 fL 6.7-11.0 NEUTROPHIL % (test code=NT%) 60.6 % 39.0-69.0 IMMATURE GRANULOCYTE % (test code=IG%) 0.6 % 0.0-5.0 LYMPHOCYTE % (test code=LY%) 20.9 % 25.0-55.0 MONOCYTE % (test code=MO%) 11.3 % 0.0-10.0 EOSINOPHIL % (test code=EO%) 5.8 % 0.0-5.0 BASOPHIL % (test code=BA%) 0.8 % 0.0-1.0 NUCLEATED RBC % (test code=NRBC%) 0.0 % 0-0 NEUTROPHIL # (test code=NT#) 3.74 K/mm3 1.8-7.7 IMMATURE GRANULOCYTE # (test code=IG#) 0.04 x10 3/uL 0-0.03 LYMPHOCYTE # (test code=LY#) 1.29 K/mm3 1.0-5.0 MONOCYTE # (test code=MO#) 0.70 K/mm3 0-0.8 EOSINOPHIL # (test code=EO#) 0.36 K/mm3 0.0-0.5 BASOPHIL # (test code=BA#) 0.05 K/mm3 0.0-0.2 NUCLEATED RBC # (test code=NRBC#) 0.00 K/mm3 0.0-0.1 MANUAL DIFF REQUIRED (test code=MDIFF) NO, ONLY SCAN NEEDED DIFFERENTIAL [id number] 02:59:00* Test Item Value Reference Range Comments STAIN ACCEPTABILITY (test code=STN ACCEPTABLE) CABOT RINGS (test code=CAB) MORPHOLOGY COMMENT (test code=MOC) PLATELET ESTIMATE (test code=PLTEST) PLATELET MORPHOLOGY (test code=PLTMORPH) CBC W/AUTO [id number] 02:59:00* Test Item Value Reference Range Comments WHITE BLOOD CELL (test code=WBC) 6.2 K/mm3 4.5-12.5 RED BLOOD CELL (test code=RBC) 3.77 mill/mm3 4.0-5.8 HEMOGLOBIN (test code=HGB) 11.6 gram/dL 13.0-17.5 HEMATOCRIT (test code=HCT) 35.5 % 42.0-52.0 MEAN CELL VOLUME (test code=MCV) 94.2 fL 80-98 MEAN CELL HGB (test code=MCH) 30.8 picogram 27.0-33.0 MEAN CELL HGB CONCETRATION (test code=MCHC) 32.7 gram/dL 33.0-36.0 RED CELL DISTRIBUTION WIDTH (test code=RDW) 15.3 % 11.6-16.2 RED CELL DISTRIBUTION WIDTH SD (test code=RDW-SD) 52.5 fL 37.0-51.0 PLATELET COUNT (test code=PLT) 98 K/mm3 150-450 RESULT VERIFIED BY REPEAT ANALYSIS MEAN PLATELET VOLUME (test code=MPV) 10.8 fL 6.7-11.0 NEUTROPHIL % (test code=NT%) 60.6 % 39.0-69.0 IMMATURE GRANULOCYTE % (test code=IG%) 0.6 % 0.0-5.0 LYMPHOCYTE % (test code=LY%) 20.9 % 25.0-55.0 MONOCYTE % (test code=MO%) 11.3 % 0.0-10.0 EOSINOPHIL % (test code=EO%) 5.8 % 0.0-5.0 BASOPHIL % (test code=BA%) 0.8 % 0.0-1.0 NUCLEATED RBC % (test code=NRBC%) 0.0 % 0-0 NEUTROPHIL # (test code=NT#) 3.74 K/mm3 1.8-7.7 IMMATURE GRANULOCYTE # (test code=IG#) 0.04 x10 3/uL 0-0.03 LYMPHOCYTE # (test code=LY#) 1.29 K/mm3 1.0-5.0 MONOCYTE # (test code=MO#) 0.70 K/mm3 0-0.8 EOSINOPHIL # (test code=EO#) 0.36 K/mm3 0.0-0.5 BASOPHIL # (test code=BA#) 0.05 K/mm3 0.0-0.2 NUCLEATED RBC # (test code=NRBC#) 0.00 K/mm3 0.0-0.1 MANUAL DIFF REQUIRED (test code=MDIFF) NO, ONLY SCAN NEEDED DIFFERENTIAL [id number] 02:59:00* Test Item Value Reference Range Comments STAIN ACCEPTABILITY (test code=STN ACCEPTABLE) CABOT RINGS (test code=CAB) MORPHOLOGY COMMENT (test code=MOC) PLATELET ESTIMATE (test code=PLTEST) PLATELET MORPHOLOGY (test code=PLTMORPH) CBC W/AUTO [id number] 02:59:00* Test Item Value Reference Range Comments WHITE BLOOD CELL (test code=WBC) 6.2 K/mm3 4.5-12.5 RED BLOOD CELL (test code=RBC) 3.77 mill/mm3 4.0-5.8 HEMOGLOBIN (test code=HGB) 11.6 gram/dL 13.0-17.5 HEMATOCRIT (test code=HCT) 35.5 % 42.0-52.0 MEAN CELL VOLUME (test code=MCV) 94.2 fL 80-98 MEAN CELL HGB (test code=MCH) 30.8 picogram 27.0-33.0 MEAN CELL HGB CONCETRATION (test code=MCHC) 32.7 gram/dL 33.0-36.0 RED CELL DISTRIBUTION WIDTH (test code=RDW) 15.3 % 11.6-16.2 RED CELL DISTRIBUTION WIDTH SD (test code=RDW-SD) 52.5 fL 37.0-51.0 PLATELET COUNT (test code=PLT) 98 K/mm3 150-450 RESULT VERIFIED BY REPEAT ANALYSIS MEAN PLATELET VOLUME (test code=MPV) 10.8 fL 6.7-11.0 NEUTROPHIL % (test code=NT%) 60.6 % 39.0-69.0 IMMATURE GRANULOCYTE % (test code=IG%) 0.6 % 0.0-5.0 LYMPHOCYTE % (test code=LY%) 20.9 % 25.0-55.0 MONOCYTE % (test code=MO%) 11.3 % 0.0-10.0 EOSINOPHIL % (test code=EO%) 5.8 % 0.0-5.0 BASOPHIL % (test code=BA%) 0.8 % 0.0-1.0 NUCLEATED RBC % (test code=NRBC%) 0.0 % 0-0 NEUTROPHIL # (test code=NT#) 3.74 K/mm3 1.8-7.7 IMMATURE GRANULOCYTE # (test code=IG#) 0.04 x10 3/uL 0-0.03 LYMPHOCYTE # (test code=LY#) 1.29 K/mm3 1.0-5.0 MONOCYTE # (test code=MO#) 0.70 K/mm3 0-0.8 EOSINOPHIL # (test code=EO#) 0.36 K/mm3 0.0-0.5 BASOPHIL # (test code=BA#) 0.05 K/mm3 0.0-0.2 NUCLEATED RBC # (test code=NRBC#) 0.00 K/mm3 0.0-0.1 MANUAL DIFF REQUIRED (test code=MDIFF) NO, ONLY SCAN NEEDED DIFFERENTIAL [id number] 02:59:00* Test Item Value Reference Range Comments STAIN ACCEPTABILITY (test code=STN ACCEPTABLE) MORPHOLOGY COMMENT (test code=MOC) PLATELET ESTIMATE (test code=PLTEST) PLATELET MORPHOLOGY (test code=PLTMORPH) CBC W/AUTO [id number] 02:59:00* Test Item Value Reference Range Comments WHITE BLOOD CELL (test code=WBC) 6.2 K/mm3 4.5-12.5 RED BLOOD CELL (test code=RBC) 3.77 mill/mm3 4.0-5.8 HEMOGLOBIN (test code=HGB) 11.6 gram/dL 13.0-17.5 HEMATOCRIT (test code=HCT) 35.5 % 42.0-52.0 MEAN CELL VOLUME (test code=MCV) 94.2 fL 80-98 MEAN CELL HGB (test code=MCH) 30.8 picogram 27.0-33.0 MEAN CELL HGB CONCETRATION (test code=MCHC) 32.7 gram/dL 33.0-36.0 RED CELL DISTRIBUTION WIDTH (test code=RDW) 15.3 % 11.6-16.2 RED CELL DISTRIBUTION WIDTH SD (test code=RDW-SD) 52.5 fL 37.0-51.0 PLATELET COUNT (test code=PLT) 98 K/mm3 150-450 RESULT VERIFIED BY REPEAT ANALYSIS MEAN PLATELET VOLUME (test code=MPV) 10.8 fL 6.7-11.0 NEUTROPHIL % (test code=NT%) 60.6 % 39.0-69.0 IMMATURE GRANULOCYTE % (test code=IG%) 0.6 % 0.0-5.0 LYMPHOCYTE % (test code=LY%) 20.9 % 25.0-55.0 MONOCYTE % (test code=MO%) 11.3 % 0.0-10.0 EOSINOPHIL % (test code=EO%) 5.8 % 0.0-5.0 BASOPHIL % (test code=BA%) 0.8 % 0.0-1.0 NUCLEATED RBC % (test code=NRBC%) 0.0 % 0-0 NEUTROPHIL # (test code=NT#) 3.74 K/mm3 1.8-7.7 IMMATURE GRANULOCYTE # (test code=IG#) 0.04 x10 3/uL 0-0.03 LYMPHOCYTE # (test code=LY#) 1.29 K/mm3 1.0-5.0 MONOCYTE # (test code=MO#) 0.70 K/mm3 0-0.8 EOSINOPHIL # (test code=EO#) 0.36 K/mm3 0.0-0.5 BASOPHIL # (test code=BA#) 0.05 K/mm3 0.0-0.2 NUCLEATED RBC # (test code=NRBC#) 0.00 K/mm3 0.0-0.1 MANUAL DIFF REQUIRED (test code=MDIFF) NO, ONLY SCAN NEEDED DIFFERENTIAL [id number] 02:59:00* Test Item Value Reference Range Comments STAIN ACCEPTABILITY (test code=STN ACCEPTABLE) CABOT RINGS (test code=CAB) MORPHOLOGY COMMENT (test code=MOC) PLATELET ESTIMATE (test code=PLTEST) PLATELET MORPHOLOGY (test code=PLTMORPH) BASIC METABOLIC [id number] 03:11:00* Test Item Value Reference Range Comments SODIUM (test code=NA) 134 mmol/L 136-145 POTASSIUM (test code=K) 4.2 mmol/L 3.5-5.1 CHLORIDE (test code=CL) 102.0 mmol/L 98-107 CARBON DIOXIDE (test code=CO2) 26.0 mmol/L 21-32 ANION GAP (test code=GAP) 10.2 10-20 GLUCOSE (test code=GLU) 85 mg/dL 74-106 BLOOD UREA NITROGEN (test code=BUN) 13 mg/dL 7-18 GLOMERULAR FILTRATION RATE (test code=GFR) > 60 mL/min >=60 Estimated GFR by using Modified MDRD formula.Chronic kidney disease is defined as either kidney damageor GFR <60 mL/min/1.73 m2 for >3 months. CREATININE (test code=CREAT) 0.90 mg/dL 0.7-1.3 BUN/CREATININE RATIO (test code=BUN/CREA) 14.4 10-20 CALCIUM (test code=CA) 8.8 mg/dL 8.5-10.1 PROTHROMBIN [id number] 03:07:00* Test Item Value Reference Range Comments PROTHROMBIN TIME PATIENT (test code=PTP) 11.9 seconds 9.0-14.0 INTERNATIONAL NORMAL RATIO (test code=INR) 1.0 0.8-1.2 The therapeutic range for oral anticoagulant therapy formost indications is an international normalized ratio (INR)of between 2.0 and 3.0. The recommended therapeutic INRrange for various clinical situations is listed below: Clinical Situation INR range Pulmonary e mbolism treatment (2.0-3.0)Venous thrombosis treatmentVenous thrombosis prophylaxis (high risk surgery)Prevention of systemic embolism from: Acute myocardial infarction Valvular heart disease Atrial fibrillation Mechanical prosthetic heart valves (2.5-3.5) IS PATIENT ON ANTICOAGULANTS? YLIST ANTICOAGULANTS ASPIRINCOMMENTS TO PHLEBO TOMIST: NEED FOR SURGERY 07/13/19ROMBOPLASTIN TIME [id number] 03:07:00 * Test Item Value Reference Range Comments THROMBOPLASTIN TIME PARTIAL (test code=PTT) 23.1 seconds 25.0-36.5 IS PATIENT ON ANTICOAGULANTS? YLIST ANTICOAGULANTS ASPIRINCOMMENTS TO PHLEBO TOMIST: NEED FOR SURGERY 07/13/19BASIC METABOLIC [id number] 03:06:00* Test Item Value Reference Range Comments SODIUM (test code=NA) 134 mmol/L 136-145 POTASSIUM (test code=K) 4.2 mmol/L 3.5-5.1 CHLORIDE (test code=CL) 102.0 mmol/L 98-107 CARBON DIOXIDE (test code=CO2) mmol/L 21-32 ANION GAP (test code=GAP) 10-20 GLUCOSE (test code=GLU) mg/dL 74-106 BLOOD UREA NITROGEN (test code=BUN) mg/dL 7-18 GLOMERULAR FILTRATION RATE (test code=GFR) mL/min >=60 CREATININE (test code=CREAT) mg/dL 0.7-1.3 BUN/CREATININE RATIO (test code=BUN/CREA) 10-20 CALCIUM (test code=CA) mg/dL 8.5-10.1 CBC W/AUTO [id number] 03:01:00* Test Item Value Reference Range Comments WHITE BLOOD CELL (test code=WBC) 6.2 K/mm3 4.5-12.5 RED BLOOD CELL (test code=RBC) 3.90 mill/mm3 4.0-5.8 HEMOGLOBIN (test code=HGB) 12.0 gram/dL 13.0-17.5 HEMATOCRIT (test code=HCT) 36.8 % 42.0-52.0 MEAN CELL VOLUME (test code=MCV) 94.4 fL 80-98 MEAN CELL HGB (test code=MCH) 30.8 picogram 27.0-33.0 MEAN CELL HGB CONCETRATION (test code=MCHC) 32.6 gram/dL 33.0-36.0 RED CELL DISTRIBUTION WIDTH (test code=RDW) 15.7 % 11.6-16.2 RED CELL DISTRIBUTION WIDTH SD (test code=RDW-SD) 54.3 fL 37.0-51.0 PLATELET COUNT (test code=PLT) 227 K/mm3 150-450 MEAN PLATELET VOLUME (test code=MPV) 9.1 fL 6.7-11.0 NEUTROPHIL % (test code=NT%) 61.8 % 39.0-69.0 IMMATURE GRANULOCYTE % (test code=IG%) 1.1 % 0.0-5.0 LYMPHOCYTE % (test code=LY%) 19.2 % 25.0-55.0 MONOCYTE % (test code=MO%) 11.1 % 0.0-10.0 EOSINOPHIL % (test code=EO%) 6.0 % 0.0-5.0 BASOPHIL % (test code=BA%) 0.8 % 0.0-1.0 NUCLEATED RBC % (test code=NRBC%) 0.0 % 0-0 NEUTROPHIL # (test code=NT#) 3.83 K/mm3 1.8-7.7 IMMATURE GRANULOCYTE # (test code=IG#) 0.07 x10 3/uL 0-0.03 LYMPHOCYTE # (test code=LY#) 1.19 K/mm3 1.0-5.0 MONOCYTE # (test code=MO#) 0.69 K/mm3 0-0.8 EOSINOPHIL # (test code=EO#) 0.37 K/mm3 0.0-0.5 BASOPHIL # (test code=BA#) 0.05 K/mm3 0.0-0.2 NUCLEATED RBC # (test code=NRBC#) 0.00 K/mm3 0.0-0.1 MANUAL DIFF REQUIRED (test code=MDIFF) NO [id number] 04:27:00* Test Item Value Reference Range Comments TROPONIN-I (test code=TROPI) 0.029 ng/mL 0-0.045 COMMENTS TO SEWER BRICKLAYER: COLLECT 3 HOURS AFTER PREVIOUS [id number] 23:43:00* Test Item Value Reference Range Comments TROPONIN-I (test code=TROPI) 0.028 ng/mL 0-0.045 COMMENTS TO SEWER BRICKLAYER: COLLECT 3 HOURS AFTER PREVIOUS SAMPLE- CTA [id number] 20:38:00 Name: SUSAN VAN [facility] : 1930 Age/S: 88 / M [address] [facility] Unit #: [id number] Loc: [place] [address] Phys: Katlyn Martinez MD Acct: [id number] Dis Date: Status: ADM IN PHONE #: [phone] Exam Date: 07/11/20192023 FAX #: [phone] Reason: SOB, CP EXAMS: CPT CODE: [id number] CTA CHEST 60223 REASON FOR EXAM: SOB, CP EXAM ORDER DATE: 07/11/2019 6:16 PM Ordering: Katlyn Martinez MD Attending:Gene Guzman MD Location: PROCEDURE: - CTA CHEST FINDINGS: CT images of the chest were obtained with IV contrast using PE protocol. Reconstructed sagittal and coronal images including 3D reconstructions of the chest were provided for interpretation. Dose reduction techniques were applied. Intravenous contrast: 100cc of Omnipaque 370. The heart size is within normal limits. No evidence of pericardial effusion The thoracic aorta is unremarkable. No evidence of dissection or aneurysmal dilatation. No filling defect seen within the main or lobar pulmonary arteries to suggest pulmonary embolus Nonspecific inflammatory nodes in the right hilum. The lungs are clear. IMPRESSION: Moderate-sized loculated lateral pleural effusion in the right apex with mass effect on the right upper lobe. Additional loculated effusion in the right base most likely subpleural. Smaller probably free pleural effusion in the left base. heart minimally enlarged at 2037 Reported and signed by: Dread Garrett M.D. CC: Gene Guzman MD; Katlyn Martinez MD Technologist:GERARD LUCAS, RT(R) CT CTDI: DLP: Trnscb Date/Time: 07/11/2019 (2037) t.VISH.VTL Orig Print D/T: S: 07/11/2019 (2040) PAGE 1 Signed Report B-TYPE NATRIURETIC [id number] 18:39:00* Test Item Value Reference Range Comments B-TYPE NATRIURETIC PEPTIDE (test code=BNP) 184.16 pgram/mL 0-100 BASIC METABOLIC [id number] 18:14:00* Test Item Value Reference Range Comments SODIUM (test code=NA) 128 mmol/L 136-145 POTASSIUM (test code=K) 4.9 mmol/L 3.5-5.1 CHLORIDE (test code=CL) 99.0 mmol/L 98-107 CARBON DIOXIDE (test code=CO2) 22.0 mmol/L 21-32 ANION GAP (test code=GAP) 11.9 10-20 GLUCOSE (test code=GLU) 88 mg/dL 74-106 BLOOD UREA NITROGEN (test code=BUN) 11 mg/dL 7-18 GLOMERULAR FILTRATION RATE (test code=GFR) > 60 mL/min >=60 Estimated GFR by using Modified MDRD formula.Chronic kidney disease is defined as either kidney damageor GFR <60 mL/min/1.73 m2 for >3 months. CREATININE (test code=CREAT) 1.00 mg/dL 0.7-1.3 BUN/CREATININE RATIO (test code=BUN/CREA) 11.0 10-20 CALCIUM (test code=CA) 8.8 mg/dL 8.5-10.1 HEPATIC FUNCTION [id number] 18:14:00* Test Item Value Reference Range Comments TOTAL PROTEIN (test code=PROT) 6.8 gram/dL 6.4-8.2 ALBUMIN (test code=ALB) 2.6 g/dL 3.4-5.0 GLOBULIN (test code=GLOB) 4.2 gram/dL 2.7-4.2 ALBUMIN/GLOBULIN RATIO (test code=A/G) 0.6 0.75-1.50 BILIRUBIN TOTAL (test code=BILT) 0.40 mg/dL 0.0-1.0 BILIRUBIN DIRECT (test code=BILD) 0.11 mg/dL 0.0-0.20 SGOT/AST (test code=AST) 25 IUnit/L 15-37 SGPT/ALT (test code=ALT) 18 IUnit/L 12-78 ALKALINE PHOSPHATASE TOTAL (test code=ALKP) 98 IUnit/L 45-117 Note change in reference range due to change in reagent. [id number] 18:14:00* Test Item Value Reference Range Comments LIPASE (test code=LIP) 90 U/L 73.0-393.0 [id number] 18:14:00* Test Item Value Reference Range Comments MAGNESIUM (test code=MAG) 1.8 mg/dL 1.8-2.4 [id number] 18:14:00* Test Item Value Reference Range Comments TROPONIN-I (test code=TROPI) <0.015 ng/mL 0-0.045 BASIC METABOLIC [id number] 18:05:00* Test Item Value Reference Range Comments SODIUM (test code=NA) 128 mmol/L 136-145 POTASSIUM (test code=K) 4.9 mmol/L 3.5-5.1 CHLORIDE (test code=CL) 99.0 mmol/L 98-107 CARBON DIOXIDE (test code=CO2) mmol/L 21-32 ANION GAP (test code=GAP) 10-20 GLUCOSE (test code=GLU) mg/dL 74-106 BLOOD UREA NITROGEN (test code=BUN) mg/dL 7-18 GLOMERULAR FILTRATION RATE (test code=GFR) mL/min >=60 CREATININE (test code=CREAT) mg/dL 0.7-1.3 BUN/CREATININE RATIO (test code=BUN/CREA) 10-20 CALCIUM (test code=CA) mg/dL 8.5-10.1 HEPATIC FUNCTION [id number] 18:05:00* Test Item Value Reference Range Comments TOTAL PROTEIN (test code=PROT) gram/dL 6.4-8.2 ALBUMIN (test code=ALB) g/dL 3.4-5.0 GLOBULIN (test code=GLOB) gram/dL 2.7-4.2 ALBUMIN/GLOBULIN RATIO (test code=A/G) 0.75-1.50 BILIRUBIN TOTAL (test code=BILT) mg/dL 0.0-1.0 BILIRUBIN DIRECT (test code=BILD) mg/dL 0.0-0.20 SGOT/AST (test code=AST) IUnit/L 15-37 SGPT/ALT (test code=ALT) IUnit/L 12-78 ALKALINE PHOSPHATASE TOTAL (test code=ALKP) IUnit/L 45-117 [id number] 18:05:00* Test Item Value Reference Range Comments LIPASE (test code=LIP) U/L 73.0-393.0 [id number] 18:05:00* Test Item Value Reference Range Comments MAGNESIUM (test code=MAG) mg/dL 1.8-2.4 [id number] 18:05:00* Test Item Value Reference Range Comments TROPONIN-I (test code=TROPI) ng/mL 0-0.045 CBC W/O [id number] 17:51:00* Test Item Value Reference Range Comments WHITE BLOOD CELL (test code=WBC) 6.2 K/mm3 4.5-12.5 RED BLOOD CELL (test code=RBC) 3.71 mill/mm3 4.0-5.8 HEMOGLOBIN (test code=HGB) 11.5 gram/dL 13.0-17.5 HEMATOCRIT (test code=HCT) 35.0 % 42.0-52.0 MEAN CELL VOLUME (test code=MCV) 94.3 fL 80-98 MEAN CELL HGB (test code=MCH) 31.0 picogram 27.0-33.0 MEAN CELL HGB CONCETRATION (test code=MCHC) 32.9 gram/dL 33.0-36.0 RED CELL DISTRIBUTION WIDTH (test code=RDW) 15.6 % 11.6-16.2 PLATELET COUNT (test code=PLT) 209 K/mm3 150-450 MEAN PLATELET VOLUME (test code=MPV) 9.0 fL 6.7-11.0 - XR CHEST 1 [id number] 17:25:00 FAX: Gene Hernandez MD [phone] Leonardo: St: REG FAX: Katlyn Subramanian [phone] Name: SUSAN VAN [facility] : 1930 Age/S: 88/M [address] [facility] Unit #: [id number] Loc: [place] [address] Phys: Katlyn Martinez MD Acct: [id number] Dis Date: Status: REG ER PHONE #: [phone] Exam Date: 07/11/2019 1643 FAX #: [phone] Reason: CHEST PAIN EXAMS: CPT CODE: [id number] XR CHEST 1 V 49231 REASON FOR EXAM: CHEST PAIN EXAM ORDER DATE: 07/11/2019 4:48 PM Ordering: Katlyn Martinez MD Attending:Katlyn Martinez MD Location:[facility] PROCEDURE: - XR CHEST 1 V COMPARISON: 07/07/2019 FINDINGS: Portable AP frontal view of the chest obtained at 4:53 PM shows diffuse airspace opacity of the right lung. The heart size is minimally enlarged. Stable appearance of the left subclavian Port-A-Cath. Pulmonary vasculatures are unremarkable. IMPRESSION: Interval enlargement of the right pleural effusion probably loculated with underlying consolidation or atelectasis of the right lung at 7936 Reported and signed by: Dread Garrett M.D. CC: Gene Guzman MD; Katlyn Martinez MD Technologist: BASHIR GARCIA RT (R) Trnscrd Date/Time/By: 07/11/2019 (5350) : By: [email or web address] Orig Print D/T: S: 07/11/2019 (6753) PAGE 1 Signed Report - XR CHEST 2 [id number] 18:08:00 FAX: Gene Hernandez MD [phone] Leonardo: O St: PRE FAX: Shoshana Martin MD [phone] Name: SUSAN VAN [facility] : 1930 Age/S: 88/M [address] [facility] Unit #: [id number] Loc: [place] [address] Phys: Shoshana Preston MD Acct: [id number] Dis Date: Status: PRE CLI PHONE #: [phone] Exam Date: 07/07/2019 1541 FAX #: [phone] Reason: I26.99,C45.0,C80.1,I8 2.409 EXAMS: CPT CODE: [id number] XR CHEST 2 V 86137 EXAM: Chest x-ray, 2 views; INFORMATION: Mesotheli mazin, malignant pleural effusion, pulmonary embolism; IMPRE SSION: 1. No acute cardiothoracic abnormalities. 2. No change co mpared with recent study from June 09, 2019, showing extensive densiti es pleural thickening on the right as well as scarring involving the rig ht lower lobe and middle lobe. 3. The left lung is well aerated. 4. Mild cardiomegaly. Location code: [facility] Electronically Signed by Arcadio Broderick on at 1808 Reported and signed by: Kar Broderick M.D. CC: Gene Guzman MD; Ryland Preston MD Technologist: RT Johnny(R) Trnscrd Date/Time/By: 07/07/2019 (1807) : By: RimaGRW Orig Print D/T: S: 07/07/2019 (1810) PAGE 1 Signed Report - INJ W FLUOR EVAL CVAD 2019-06-29 15:20:00 Name: SUSAN VAN [facility] : 1930 Age/S: 88 / M [address] [facility] Unit #: [id number] Loc: [place] [address] Phys: Nedra Doll MD Acct: [id number] Dis Date: Status: [facility] PHONE #: [phone] Exam Date: 06/28/2019 1315 FAX #: [phone] Reason: EXAMS: CPT CODE: [id number] INJ W FLUOR EVAL CVAD 10755 Fluoro Time: 44 DAP (Gy m2): 5.19 Air Kerma (mGy): 35 EXAM: Contrast injection of a malfunctioning Port-A-Cath; INFORMATION: Patient with history of mesothelioma. Nurses are unable to withdraw blood from the indwelling left subclavian Port-A-Cath. TECHNIQUE AND FINDINGS: Informed consent was obtained and the patient was placed supine on the procedure table. Initial fluoroscopic evaluation showed an intact Port-A-Cath system, inserted via the left subclavian vein. The tip of the catheter was positioned along the lateral edge of the superior portion of the SVC. The patient's left upper chest region was prepped and draped in the usual sterile fashion. Xylocaine was administered and the port was then accessed with a Cody needle. No could be aspirated. Contrast material was injected opacifying the port and demonstrating a patent catheter portion was good opacification of the SVC. No evidence of thrombus. The access needle was left in place. No complications. IMPRESSION: 1. Similar to a previous study from November 252018 the Port-A-Cath is patent and there is no evidence of thrombus within the SVC. 2. Dilatation to withdraw blood is probably secondary to the fact that the tip of the catheter appears to be positioned against the lateral wall of the SVC. Fluoroscopy Time: 44 sec CAK : 35 mGy DAP : 5490 mGy sq cm Location code: [facility] at 1520 Reported and signed by: Duy Broderick M.D. CC: Gene Guzman MD; Nedra Doll MD Technologist: [facility] Date/Time: 06/29/2019 (1520) [email or web address] Orig Print D/T: S: 07/05/2019 (1566) PAGE 1 Signed Report PLEURAL [id number] 14:29:00 RUN DATE: 06/14/19 [facility] PAGE 1 RUN TIME: 1429 Specimen Inqui ry RUN USER: INTERFACE PATIENT: SUSAN VAN ACCT #: Shivani [id number] LOC: JANENE U #: [id number] AGE/SX: 88/M ROOM: RE06/09/19[facility] DR: Duy Broderick MD : 34 BED: DIS: [place]US[place] [facility] [place]: SPEC #: [id number] RECD: 06/09/19-1250 STATUS: [facility] #: [id number] REINIER: 06/09/19-[address] [facility] [address]: Duy Broderick MD ENTERED: 06/09/19-1252 SP TYPE: PLEURAL FL OTHR DR: Gene Guzman MD ORDERED: GROSS COPIES TO: Gene Guzman MD [address] [place], [place] [id number] Duy Broderick MD [address] [place] [address] PROCEDURES: GROSS (06/13/19926) TISSUES: 1. PLEURAL FLUID, NOS - RIGHT UPPER 7 ML DARK BROWN 2. PLEURAL FLUID, NOS - RIGHT LOWER 7 ML DARK BROWN CLINICAL HISTORY COLLECTION DATE: 06/09/2019 PLEURAL EFFUSION COMMENT Two smear slides, a cytospin and cell block are prepared from each specimen. Intradepartmental consultation: DMW FINAL DIAGNOSIS Right upper lobe pleural fluid, thoracentesis: NEGATIVE FOR MALIGNANCY FEW MIXED IN FLAMMATORY CELLS AND MACROPHAGES IN BACKGROUND OF BLOOD Right lower lo be pleural fluid, thoracentesis: NEGATIVE FOR MALIGNANCY MACROPHAG ES AND FEW MIXED INFLAMMATORY CELLS IN BACKGROUND OF BLOOD RRB/camila D CONTINUED ON NEXT PAGE RUN DATE: 06/14/19 [facility] PAGE 2 RUN TIME: 1429 Specimen Inquiry RUN USER: INTERFACE SPEC #: [id number] PATIENT: SUSAN VAN LINDA #[id number] (Continued) FINAL DIAGNOSIS (Con tinued) [id number], 71467x7 MACROSCOPIC The first specimen cons ists of 7 mL of dark brown fluid to be concentrated and processed for cytologi c evaluation. A cell block will be prepared. The second specimen consists of 7 mL of dark brown fluid to be concentrated and processed for cytologic ev aluation. A cell block will be prepared. GROSS PERFORMED AT [facility] [address] [place] [address] [phone] MICROSCOPIC All of the stains, i ncluding any controls performed, stain appropriately. MICROSCOPIC PERFOR MED AT [facility] [address] [place] [address] [phone] PERFORMING SITE Diagnosis performed at: [facility] [address] [place] [address] Signed SIGNATURE ON FILE Jaylen Davenport MD 06/14/19 1429 END OF REPORT PLEURAL FLD CELL [id number] 13:42:00* Test Item Value Reference Range Comments FLUID WBC AUTO (test code=WBCFLA) 106 cells/uL FLUID RBC AUTO (test code=RBCFLA) 965310 cells/uL FLUID TOTAL CELLS (test code=TCFL) 107 cells/uL >0 Fluid WBC RBC PMN% MN%Type cells/uL cells/uL CSF (0-5) n/a (2+/-4) (90+/-20)Peritoneal n/a n/a n/a n/aPleural n/a n/a n/a n/aSynovial <200 n/a <25% <75% CSF (0-30) n/a (4+/-4) (90+/-20) PLEURAL FLD COLOR (test code=COLPL) RED PLEURAL FLD APPEARANCE (test code=APPPL) CLOUDY PLEURAL FLD POLY (test code=POLYPL) 26.0 % PLEURAL FLD LYMPHOCYTE (test code=LYMPHPL) 55.0 % PLEURAL FLD MACROPHAGE (test code=MACPL) 55.0 % TOTAL CELLS COUNTED ON DIFF (test code=TOTCELLFL) 60 cells REVIEWED BY (test code=REVIEW) PATHOLOGIST Reviewed by Dr Julia Meneses:REVIEWED. SPECIMEN COMMENTS:LOWER RIGHT PLEURAL FLUIDPLEURAL FLD [id number] 13:42:00* Test Item Value Reference Range Comments PLEURAL FLD PH (test code=PHPL) 7.0 SPECIMEN COMMENTS:LOWER RIGHT PLEURAL FLUIDPLEURAL FLD [id number] 13:42:00* Test Item Value Reference Range Comments PLEURAL FLD GLUCOSE (test code=GLUPL) 9 MG/DL SPECIMEN COMMENTS:LOWER RIGHT PLEURAL FLUIDPLEURAL FLD TOTAL [id number] 13:42:00* Test Item Value Reference Range Comments PLEURAL FLD TOTAL PROTEIN (test code=PROTPL) 3.7 gram/dL SPECIMEN COMMENTS:LOWER RIGHT PLEURAL FLUIDPLEURAL FLD [id number] 13:42:00* Test Item Value Reference Range Comments PLEURAL FLD LDH (test code=LDHPL) 1892 IUnit/L SPECIMEN COMMENTS:LOWER RIGHT PLEURAL FLUIDPLEURAL FLD [id number] 13:42:00* Test Item Value Reference Range Comments PLEURAL FLD CHOLESTEROL (test code=CHOLPL) 85 MG/DL SPECIMEN COMMENTS:LOWER RIGHT PLEURAL FLUIDPLEURAL FLD [id number] 13:42:00* Test Item Value Reference Range Comments PLEURAL FLD TRIGLYCERIDE (test code=TRIGPL) 86 MG/DL SPECIMEN COMMENTS:LOWER RIGHT PLEURAL FLUIDPLEURAL FLD CELL [id number] 13:42:00* Test Item Value Reference Range Comments FLUID WBC AUTO (test code=WBCFLA) 139 cells/uL FLUID RBC AUTO (test code=RBCFLA) 34387 cells/uL FLUID TOTAL CELLS (test code=TCFL) 157 cells/uL >0 Fluid WBC RBC PMN% MN%Type cells/uL cells/uL CSF (0-5) n/a (2+/-4) (90+/-20)Peritoneal n/a n/a n/a n/aPleural n/a n/a n/a n/aSynovial <200 n/a <25% <75% CSF (0-30) n/a (4+/-4) (90+/-20) PLEURAL FLD COLOR (test code=COLPL) RED PLEURAL FLD APPEARANCE (test code=APPPL) CLOUDY PLEURAL FLD POLY (test code=POLYPL) 26.0 % PLEURAL FLD LYMPHOCYTE (test code=LYMPHPL) 54.0 % PLEURAL FLD MACROPHAGE (test code=MACPL) 20.0 % TOTAL CELLS COUNTED ON DIFF (test code=TOTCELLFL) 100 cells REVIEWED BY (test code=REVIEW) PATHOLOGIST Reviewed by Dr Julia Meneses:REVIEWED. SPECIMEN COMMENTS: RIGHT UPPER PLEURAL FLUIDPLEURAL FLD [id number] 13:42:00* Test Item Value Reference Range Comments PLEURAL FLD PH (test code=PHPL) 7.0 SPECIMEN COMMENTS: RIGHT UPPER PLEURAL FLUIDPLEURAL FLD [id number] 13:42:00* Test Item Value Reference Range Comments PLEURAL FLD GLUCOSE (test code=GLUPL) 14 MG/DL SPECIMEN COMMENTS: RIGHT UPPER PLEURAL FLUIDPLEURAL FLD TOTAL [id number] 13:42:00* Test Item Value Reference Range Comments PLEURAL FLD TOTAL PROTEIN (test code=PROTPL) 4.0 gram/dL SPECIMEN COMMENTS: RIGHT UPPER PLEURAL FLUIDPLEURAL FLD [id number] 13:42:00* Test Item Value Reference Range Comments PLEURAL FLD LDH (test code=LDHPL) 2141 IUnit/L SPECIMEN COMMENTS: RIGHT UPPER PLEURAL FLUIDPLEURAL FLD [id number] 13:42:00* Test Item Value Reference Range Comments PLEURAL FLD CHOLESTEROL (test code=CHOLPL) 112 MG/DL SPECIMEN COMMENTS: RIGHT UPPER PLEURAL FLUIDPLEURAL FLD [id number] 13:42:00* Test Item Value Reference Range Comments PLEURAL FLD TRIGLYCERIDE (test code=TRIGPL) 104 MG/DL SPECIMEN COMMENTS: RIGHT UPPER PLEURAL FLUIDPLEURAL FLD CELL [id number] 14:37:00* Test Item Value Reference Range Comments FLUID WBC AUTO (test code=WBCFLA) 139 cells/uL FLUID RBC AUTO (test code=RBCFLA) 50533 cells/uL FLUID TOTAL CELLS (test code=TCFL) 157 cells/uL >0 Fluid WBC RBC PMN% MN%Type cells/uL cells/uL CSF (0-5) n/a (2+/-4) (90+/-20)Peritoneal n/a n/a n/a n/aPleural n/a n/a n/a n/aSynovial <200 n/a <25% <75% CSF (0-30) n/a (4+/-4) (90+/-20) PLEURAL FLD COLOR (test code=COLPL) RED PLEURAL FLD APPEARANCE (test code=APPPL) CLOUDY PLEURAL FLD POLY (test code=POLYPL) 26.0 % PLEURAL FLD LYMPHOCYTE (test code=LYMPHPL) 54.0 % PLEURAL FLD MACROPHAGE (test code=MACPL) 20.0 % TOTAL CELLS COUNTED ON DIFF (test code=TOTCELLFL) 100 cells REVIEWED BY (test code=REVIEW) PATHOLOGIST SPECIMEN COMMENTS: RIGHT UPPER PLEURAL FLUIDPLEURAL FLD [id number] 14:37:00* Test Item Value Reference Range Comments PLEURAL FLD PH (test code=PHPL) 7.0 SPECIMEN COMMENTS: RIGHT UPPER PLEURAL FLUIDPLEURAL FLD [id number] 14:37:00* Test Item Value Reference Range Comments PLEURAL FLD GLUCOSE (test code=GLUPL) 14 MG/DL SPECIMEN COMMENTS: RIGHT UPPER PLEURAL FLUIDPLEURAL FLD TOTAL [id number] 14:37:00* Test Item Value Reference Range Comments PLEURAL FLD TOTAL PROTEIN (test code=PROTPL) 4.0 gram/dL SPECIMEN COMMENTS: RIGHT UPPER PLEURAL FLUIDPLEURAL FLD [id number] 14:37:00* Test Item Value Reference Range Comments PLEURAL FLD LDH (test code=LDHPL) 2141 IUnit/L SPECIMEN COMMENTS: RIGHT UPPER PLEURAL FLUIDPLEURAL FLD [id number] 14:37:00* Test Item Value Reference Range Comments PLEURAL FLD CHOLESTEROL (test code=CHOLPL) 112 MG/DL SPECIMEN COMMENTS: RIGHT UPPER PLEURAL FLUIDPLEURAL FLD [id number] 14:37:00* Test Item Value Reference Range Comments PLEURAL FLD TRIGLYCERIDE (test code=TRIGPL) 104 MG/DL SPECIMEN COMMENTS: RIGHT UPPER PLEURAL FLUIDPLEURAL FLD CELL [id number] 14:36:00* Test Item Value Reference Range Comments FLUID WBC AUTO (test code=WBCFLA) 106 cells/uL FLUID RBC AUTO (test code=RBCFLA) 134402 cells/uL FLUID TOTAL CELLS (test code=TCFL) 107 cells/uL >0 Fluid WBC RBC PMN% MN%Type cells/uL cells/uL CSF (0-5) n/a (2+/-4) (90+/-20)Peritoneal n/a n/a n/a n/aPleural n/a n/a n/a n/aSynovial <200 n/a <25% <75% CSF (0-30) n/a (4+/-4) (90+/-20) PLEURAL FLD COLOR (test code=COLPL) RED PLEURAL FLD APPEARANCE (test code=APPPL) CLOUDY PLEURAL FLD POLY (test code=POLYPL) 26.0 % PLEURAL FLD LYMPHOCYTE (test code=LYMPHPL) 55.0 % PLEURAL FLD MACROPHAGE (test code=MACPL) 55.0 % TOTAL CELLS COUNTED ON DIFF (test code=TOTCELLFL) 60 cells REVIEWED BY (test code=REVIEW) PATHOLOGIST SPECIMEN COMMENTS:LOWER RIGHT PLEURAL FLUIDPLEURAL FLD [id number] 14:36:00* Test Item Value Reference Range Comments PLEURAL FLD PH (test code=PHPL) 7.0 SPECIMEN COMMENTS:LOWER RIGHT PLEURAL FLUIDPLEURAL FLD [id number] 14:36:00* Test Item Value Reference Range Comments PLEURAL FLD GLUCOSE (test code=GLUPL) 9 MG/DL SPECIMEN COMMENTS:LOWER RIGHT PLEURAL FLUIDPLEURAL FLD TOTAL [id number] 14:36:00* Test Item Value Reference Range Comments PLEURAL FLD TOTAL PROTEIN (test code=PROTPL) 3.7 gram/dL SPECIMEN COMMENTS:LOWER RIGHT PLEURAL FLUIDPLEURAL FLD [id number] 14:36:00* Test Item Value Reference Range Comments PLEURAL FLD LDH (test code=LDHPL) 1892 IUnit/L SPECIMEN COMMENTS:LOWER RIGHT PLEURAL FLUIDPLEURAL FLD [id number] 14:36:00* Test Item Value Reference Range Comments PLEURAL FLD CHOLESTEROL (test code=CHOLPL) 85 MG/DL SPECIMEN COMMENTS:LOWER RIGHT PLEURAL FLUIDPLEURAL FLD [id number] 14:36:00* Test Item Value Reference Range Comments PLEURAL FLD TRIGLYCERIDE (test code=TRIGPL) 86 MG/DL SPECIMEN COMMENTS:LOWER RIGHT PLEURAL FLUIDPLEURAL FLD CELL [id number] 14:29:00* Test Item Value Reference Range Comments FLUID WBC AUTO (test code=WBCFLA) 106 cells/uL FLUID RBC AUTO (test code=RBCFLA) 831049 cells/uL FLUID TOTAL CELLS (test code=TCFL) 107 cells/uL >0 Fluid WBC RBC PMN% MN%Type cells/uL cells/uL CSF (0-5) n/a (2+/-4) (90+/-20)Peritoneal n/a n/a n/a n/aPleural n/a n/a n/a n/aSynovial <200 n/a <25% <75% CSF (0-30) n/a (4+/-4) (90+/-20) PLEURAL FLD COLOR (test code=COLPL) RED PLEURAL FLD APPEARANCE (test code=APPPL) CLOUDY TOTAL CELLS COUNTED ON DIFF (test code=TOTCELLFL) cells REVIEWED BY (test code=REVIEW) PATHOLOGIST SPECIMEN COMMENTS:LOWER RIGHT PLEURAL FLUIDPLEURAL FLD [id number] 14:29:00* Test Item Value Reference Range Comments PLEURAL FLD PH (test code=PHPL) 7.0 SPECIMEN COMMENTS:LOWER RIGHT PLEURAL FLUIDPLEURAL FLD [id number] 14:29:00* Test Item Value Reference Range Comments PLEURAL FLD GLUCOSE (test code=GLUPL) 9 MG/DL SPECIMEN COMMENTS:LOWER RIGHT PLEURAL FLUIDPLEURAL FLD TOTAL [id number] 14:29:00* Test Item Value Reference Range Comments PLEURAL FLD TOTAL PROTEIN (test code=PROTPL) 3.7 gram/dL SPECIMEN COMMENTS:LOWER RIGHT PLEURAL FLUIDPLEURAL FLD [id number] 14:29:00* Test Item Value Reference Range Comments PLEURAL FLD LDH (test code=LDHPL) 1892 IUnit/L SPECIMEN COMMENTS:LOWER RIGHT PLEURAL FLUIDPLEURAL FLD [id number] 14:29:00* Test Item Value Reference Range Comments PLEURAL FLD CHOLESTEROL (test code=CHOLPL) 85 MG/DL SPECIMEN COMMENTS:LOWER RIGHT PLEURAL FLUIDPLEURAL FLD [id number] 14:29:00* Test Item Value Reference Range Comments PLEURAL FLD TRIGLYCERIDE (test code=TRIGPL) 86 MG/DL SPECIMEN COMMENTS:LOWER RIGHT PLEURAL FLUID- SP THORACENTESIS [id number] 13:59:00 [facility] 1930 [facility] 88 / M [address] Unit #: [id number] Loc: [place] [address] Phys: Duy Broderick MD Acct: [id number] Dis Date: Status: [facility] PHONE #: [phone] Exam Date: 06/09/2019 1203 FAX #: [phone] Reason: EXAMS: CPT CODE: [id number] SP THORACENTESIS W/IMAG 03299 Fluoro Time: DAP (Gy m2): Air Kerma (mGy): REASON FOR EXAM: Mesothelioma Exam order date: 06/09/2019 11:01 AM PROCEDURE: Ultrasound guided right thoracentesis x 2 with IV conscious sedation Ordering: Shoshana Preston MD Location:[facility] CPT code: 02759 x 2, 40958 x 2 Lybx-oh-zuir approximate procedure time is 60 minutes FINDINGS: Prior to the procedure, informed consent was obtained after risks and benefits of the procedure were explained to the patient. The patient agreed and wanted to proceed. The patient was brought to special procedures. The back was prepped and draped in the usual fashion. All elements of maximal sterile techniques were followed. Ultrasound was first used for assessment of the effusion. US shows mild loculated effusions. There is a lower pocket in the right costophrenic sulcus and an upper pocket near the right axilla. Images of the effusions were submitted to PACS. 2% local lidocaine was given for local anesthetic. Under real time ultrasound guidance, a micropuncture needle was advanced into the right thoracic cavity (right costophrenic sulcus). A guide wire was inserted and a 10 Fr catheter was inserted in the thoracic cavity. 300 cc of serosanguineous fluid obtained. The catheter was removed and hemostasis obtained. Samples were submitted for gram stain, cultures, cell count, LDH, glucose, and protein. The same procedure was performed at the upper pocket near the right axilla. 400 cc of serosanguineous fluid removed. MEDICATIONS: 1 mg of Versed, 50 mcg of fentanyl COMPLICATIONS: No immediate. Blood loss: less than 5cc IMPRESSION: 300 cc of serosanguineous fluid removed from the right costophrenic sulcus loculated effusion. 400 cc of serosanguineous fluid removed from the upper pocket near the right axilla. PAGE 1 Signed Report (CONTINUED) Name: SUSAN VAN [facility] : 1930 Age/S: 88 / M [address] Unit #: [id number] Loc: [place] [address] Phys: Duy Broderick MD Acct: [id number] Dis Date: Status: [facility] PHONE #: [phone] Exam Date: 06/09/2019 1205 FAX #: [phone] Reason: EXAMS: CPT CODE: [id number] SP THORACENTESIS W/IMAG 71507 Fluoro Time: DAP (Gy m2): Air Kerma (mGy): < Continued> at 1359 Reported and signed by: Dread Garrett M.D. CC: Gene Guzman MD Technologist: Jany Poe RT(R) Trnscb Date/Time: 06/09/2019 (3218) [email or web address] Orig Print D/T: S: 06/10/2019 (0838) PAGE 2 Signed Report - SP THORACENTESIS [id number] 13:59:00 Name: SUSAN VAN [facility] : 1930 Age/S: 88 / M [address] Unit #: [id number] Loc: [place] [address] Phys: Duy Broderick MD Acct: [id number] Dis Date: Status: [facility] PHONE #: [phone] Exam Date: 06/09/2019 1120 FAX #: [phone] Reason: EXAMS: CPT CODE: [id number] SP THORACENTESIS W/IMAG 34515 Fluoro Time: DAP (Gy m2): Air Kerma (mGy): REASON FOR EXAM: Mesothelioma Exam order date: 06/09/2019 11:01 AM PROCEDURE: Ultrasound guided right thoracentesis x 2 with IV conscious sedation Ordering: Shoshana Preston MD Location:[facility] CPT code: 46185 x 2, 19448 x 2 Omqu-zk-cebv approximate procedure time is 60 minutes FINDINGS: Prior to the procedure, informed consent was obtained after risks and benefits of the procedure were explained to the patient. The patient agreed and wanted to proceed. The patient was brought to special procedures. The back was prepped and draped in the usua l fashion. All elements of maximal sterile techniques were followed. Ultra sound was first used for assessment of the effusion. US shows mild loculat ed effusions. There is a lower pocket in the right costophrenic sulcus and an upper pocket near the right axilla. Images of the effusions were submitted to PACS. 2% local lidocaine was given for local anesthetic. U nder real time ultrasound guidance, a micropuncture needle was advanced in to the right thoracic cavity (right costophrenic sulcus). A guide wire was inserted and a 10 Fr catheter was inserted in the thoracic cavity. 300 cc of serosanguineous fluid obtained. The catheter was removed and hemostasis obtained. Samples were submitted for gram stain, cultures, cell count, L DH, glucose, and protein. The same procedure was performed at the upper po cket near the right axilla. 400 cc of serosanguineous fluid removed. MEDICATIONS: 1 mg of Versed, 50 mcg of fentanyl COMPLICAT IONS: No immediate. Blood loss: less than 5cc IMPR ESSION: 300 cc of serosanguineous fluid removed from the right costophre celestino sulcus loculated effusion. 400 cc of serosanguineous fluid removed f rom the upper pocket near the right axilla. PAGE 1 Signed Report (CONTINUED) Name: SUSAN VAN [facility] : 1930 Age/S: 88 / M [address] [facility] Unit #: [id number] Loc: [place] [address] Phys: Duy Broderick MD Acct: [id number] Dis Date: Status: DEP S DC PHONE #: [phone] Exam Date: 06/09/19 20 1120 FAX #: [phone] Reason: EXAMS: CPT CODE: [id number] SP THORACENTESIS W/IMAG 99102 Fluoro Time: DAP (Gy m2): Air Kerma (mGy): < Continued> at 1359 Reported and signed by: Dread Garrett M.D. CC: Gene Guzman MD Technologist: Jany Poe RT(R) Trnscb Date/Time: 06/09/2019 (9829) BeverlyL Orig Print D/T: S: 06/10/2019 (0830) PAGE 2 Signed Report PLEURAL FLD CELL [id number] 13:58:00* Test Item Value Reference Range Comments FLUID WBC AUTO (test code=WBCFLA) 139 cells/uL FLUID RBC AUTO (test code=RBCFLA) 83372 cells/uL FLUID TOTAL CELLS (test code=TCFL) 157 cells/uL >0 Fluid WBC RBC PMN% MN%Type cells/uL cells/uL CSF (0-5) n/a (2+/-4) (90+/-20)Peritoneal n/a n/a n/a n/aPleural n/a n/a n/a n/aSynovial <200 n/a <25% <75% CSF (0-30) n/a (4+/-4) (90+/-20) PLEURAL FLD COLOR (test code=COLPL) RED PLEURAL FLD APPEARANCE (test code=APPPL) CLOUDY TOTAL CELLS COUNTED ON DIFF (test code=TOTCELLFL) cells REVIEWED BY (test code=REVIEW) PATHOLOGIST SPECIMEN COMMENTS: RIGHT UPPER PLEURAL FLUIDPLEURAL FLD [id number] 13:58:00* Test Item Value Reference Range Comments PLEURAL FLD PH (test code=PHPL) 7.0 SPECIMEN COMMENTS: RIGHT UPPER PLEURAL FLUIDPLEURAL FLD [id number] 13:58:00* Test Item Value Reference Range Comments PLEURAL FLD GLUCOSE (test code=GLUPL) 14 MG/DL SPECIMEN COMMENTS: RIGHT UPPER PLEURAL FLUIDPLEURAL FLD TOTAL [id number] 13:58:00* Test Item Value Reference Range Comments PLEURAL FLD TOTAL PROTEIN (test code=PROTPL) 4.0 gram/dL SPECIMEN COMMENTS: RIGHT UPPER PLEURAL FLUIDPLEURAL FLD [id number] 13:58:00* Test Item Value Reference Range Comments PLEURAL FLD LDH (test code=LDHPL) 2141 IUnit/L SPECIMEN COMMENTS: RIGHT UPPER PLEURAL FLUIDPLEURAL FLD [id number] 13:58:00* Test Item Value Reference Range Comments PLEURAL FLD CHOLESTEROL (test code=CHOLPL) 112 MG/DL SPECIMEN COMMENTS: RIGHT UPPER PLEURAL FLUIDPLEURAL FLD [id number] 13:58:00* Test Item Value Reference Range Comments PLEURAL FLD TRIGLYCERIDE (test code=TRIGPL) 104 MG/DL SPECIMEN COMMENTS: RIGHT UPPER PLEURAL FLUIDPLEURAL FLD CELL [id number] 13:51:00* Test Item Value Reference Range Comments FLUID WBC AUTO (test code=WBCFLA) 139 cells/uL FLUID RBC AUTO (test code=RBCFLA) 91430 cells/uL FLUID TOTAL CELLS (test code=TCFL) 157 cells/uL >0 Fluid WBC RBC PMN% MN%Type cells/uL cells/uL CSF (0-5) n/a (2+/-4) (90+/-20)Peritoneal n/a n/a n/a n/aPleural n/a n/a n/a n/aSynovial <200 n/a <25% <75% CSF (0-30) n/a (4+/-4) (90+/-20) PLEURAL FLD COLOR (test code=COLPL) RED PLEURAL FLD APPEARANCE (test code=APPPL) CLOUDY TOTAL CELLS COUNTED ON DIFF (test code=TOTCELLFL) cells REVIEWED BY (test code=REVIEW) PATHOLOGIST SPECIMEN COMMENTS: RIGHT UPPER PLEURAL FLUIDPLEURAL FLD [id number] 13:51:00* Test Item Value Reference Range Comments PLEURAL FLD PH (test code=PHPL) 7.0 SPECIMEN COMMENTS: RIGHT UPPER PLEURAL FLUIDPLEURAL FLD [id number] 13:51:00* Test Item Value Reference Range Comments PLEURAL FLD GLUCOSE (test code=GLUPL) MG/DL SPECIMEN COMMENTS: RIGHT UPPER PLEURAL FLUIDPLEURAL FLD TOTAL [id number] 13:51:00* Test Item Value Reference Range Comments PLEURAL FLD TOTAL PROTEIN (test code=PROTPL) gram/dL SPECIMEN COMMENTS: RIGHT UPPER PLEURAL FLUIDPLEURAL FLD [id number] 13:51:00* Test Item Value Reference Range Comments PLEURAL FLD LDH (test code=LDHPL) IUnit/L SPECIMEN COMMENTS: RIGHT UPPER PLEURAL FLUIDPLEURAL FLD [id number] 13:51:00* Test Item Value Reference Range Comments PLEURAL FLD CHOLESTEROL (test code=CHOLPL) MG/DL SPECIMEN COMMENTS: RIGHT UPPER PLEURAL FLUIDPLEURAL FLD [id number] 13:51:00* Test Item Value Reference Range Comments PLEURAL FLD TRIGLYCERIDE (test code=TRIGPL) MG/DL SPECIMEN COMMENTS: RIGHT UPPER PLEURAL FLUIDPLEURAL FLD CELL CT/[id number] 13:51:00* Test Item Value Reference Range Comments FLUID WBC AUTO (test code=WBCFLA) 106 cells/uL FLUID RBC AUTO (test code=RBCFLA) 702669 cells/uL FLUID TOTAL CELLS (test code=TCFL) 107 cells/uL >0 Fluid WBC RBC PMN% MN%Type cells/uL cells/uL CSF (0-5) n/a (2+/-4) (90+/-20)Peritoneal n/a n/a n/a n/aPleural n/a n/a n/a n/aSynovial <200 n/a <25% <75% CSF (0-30) n/a (4+/-4) (90+/-20) PLEURAL FLD COLOR (test code=COLPL) RED PLEURAL FLD APPEARANCE (test code=APPPL) CLOUDY TOTAL CELLS COUNTED ON DIFF (test code=TOTCELLFL) cells REVIEWED BY (test code=REVIEW) PATHOLOGIST SPECIMEN COMMENTS:LOWER RIGHT PLEURAL FLUIDPLEURAL FLD [id number] 13:51:00* Test Item Value Reference Range Comments PLEURAL FLD PH (test code=PHPL) 7.0 SPECIMEN COMMENTS:LOWER RIGHT PLEURAL FLUIDPLEURAL FLD [id number] 13:51:00* Test Item Value Reference Range Comments PLEURAL FLD GLUCOSE (test code=GLUPL) MG/DL SPECIMEN COMMENTS:LOWER RIGHT PLEURAL FLUIDPLEURAL FLD TOTAL [id number] 13:51:00* Test Item Value Reference Range Comments PLEURAL FLD TOTAL PROTEIN (test code=PROTPL) gram/dL SPECIMEN COMMENTS:LOWER RIGHT PLEURAL FLUIDPLEURAL FLD [id number] 13:51:00* Test Item Value Reference Range Comments PLEURAL FLD LDH (test code=LDHPL) IUnit/L SPECIMEN COMMENTS:LOWER RIGHT PLEURAL FLUIDPLEURAL FLD [id number] 13:51:00* Test Item Value Reference Range Comments PLEURAL FLD CHOLESTEROL (test code=CHOLPL) MG/DL SPECIMEN COMMENTS:LOWER RIGHT PLEURAL FLUIDPLEURAL FLD [id number] 13:51:00* Test Item Value Reference Range Comments PLEURAL FLD TRIGLYCERIDE (test code=TRIGPL) MG/DL SPECIMEN COMMENTS:LOWER RIGHT PLEURAL FLUIDPLEURAL FLD CELL [id number] 13:29:00* Test Item Value Reference Range Comments FLUID WBC AUTO (test code=WBCFLA) 106 cells/uL FLUID RBC AUTO (test code=RBCFLA) 825989 cells/uL FLUID TOTAL CELLS (test code=TCFL) 107 cells/uL >0 Fluid WBC RBC PMN% MN%Type cells/uL cells/uL CSF (0-5) n/a (2+/-4) (90+/-20)Peritoneal n/a n/a n/a n/aPleural n/a n/a n/a n/aSynovial <200 n/a <25% <75% CSF (0-30) n/a (4+/-4) (90+/-20) PLEURAL FLD COLOR (test code=COLPL) PLEURAL FLD APPEARANCE (test code=APPPL) PLEURAL FLD WBC (test code=WBCPL) per uL 0-1000 PLEURAL FLD RBC (test code=RBCPL) per uL 0-50 TOTAL CELLS COUNTED ON DIFF (test code=TOTCELLFL) cells REVIEWED BY (test code=REVIEW) PATHOLOGIST SPECIMEN COMMENTS:LOWER RIGHT PLEURAL FLUIDPLEURAL FLD [id number] 13:29:00* Test Item Value Reference Range Comments PLEURAL FLD PH (test code=PHPL) SPECIMEN COMMENTS:LOWER RIGHT PLEURAL FLUIDPLEURAL FLD [id number] 13:29:00* Test Item Value Reference Range Comments PLEURAL FLD GLUCOSE (test code=GLUPL) MG/DL SPECIMEN COMMENTS:LOWER RIGHT PLEURAL FLUIDPLEURAL FLD TOTAL [id number] 13:29:00* Test Item Value Reference Range Comments PLEURAL FLD TOTAL PROTEIN (test code=PROTPL) gram/dL SPECIMEN COMMENTS:LOWER RIGHT PLEURAL FLUIDPLEURAL FLD [id number] 13:29:00* Test Item Value Reference Range Comments PLEURAL FLD LDH (test code=LDHPL) IUnit/L SPECIMEN COMMENTS:LOWER RIGHT PLEURAL FLUIDPLEURAL FLD [id number] 13:29:00* Test Item Value Reference Range Comments PLEURAL FLD CHOLESTEROL (test code=CHOLPL) MG/DL SPECIMEN COMMENTS:LOWER RIGHT PLEURAL FLUIDPLEURAL FLD [id number] 13:29:00* Test Item Value Reference Range Comments PLEURAL FLD TRIGLYCERIDE (test code=TRIGPL) MG/DL SPECIMEN COMMENTS:LOWER RIGHT PLEURAL FLUIDPLEURAL FLD CELL [id number] 13:27:00* Test Item Value Reference Range Comments FLUID WBC AUTO (test code=WBCFLA) 139 cells/uL FLUID RBC AUTO (test code=RBCFLA) 58308 cells/uL FLUID TOTAL CELLS (test code=TCFL) 157 cells/uL >0 Fluid WBC RBC PMN% MN%Type cells/uL cells/uL CSF (0-5) n/a (2+/-4) (90+/-20)Peritoneal n/a n/a n/a n/aPleural n/a n/a n/a n/aSynovial <200 n/a <25% <75% CSF (0-30) n/a (4+/-4) (90+/-20) PLEURAL FLD COLOR (test code=COLPL) PLEURAL FLD APPEARANCE (test code=APPPL) PLEURAL FLD WBC (test code=WBCPL) per uL 0-1000 PLEURAL FLD RBC (test code=RBCPL) per uL 0-50 TOTAL CELLS COUNTED ON DIFF (test code=TOTCELLFL) cells REVIEWED BY (test code=REVIEW) PATHOLOGIST SPECIMEN COMMENTS: RIGHT UPPER PLEURAL FLUIDPLEURAL FLD [id number] 13:27:00* Test Item Value Reference Range Comments PLEURAL FLD PH (test code=PHPL) SPECIMEN COMMENTS: RIGHT UPPER PLEURAL FLUIDPLEURAL FLD [id number] 13:27:00* Test Item Value Reference Range Comments PLEURAL FLD GLUCOSE (test code=GLUPL) MG/DL SPECIMEN COMMENTS: RIGHT UPPER PLEURAL FLUIDPLEURAL FLD TOTAL [id number] 13:27:00* Test Item Value Reference Range Comments PLEURAL FLD TOTAL PROTEIN (test code=PROTPL) gram/dL SPECIMEN COMMENTS: RIGHT UPPER PLEURAL FLUIDPLEURAL FLD [id number] 13:27:00* Test Item Value Reference Range Comments PLEURAL FLD LDH (test code=LDHPL) IUnit/L SPECIMEN COMMENTS: RIGHT UPPER PLEURAL FLUIDPLEURAL FLD [id number] 13:27:00* Test Item Value Reference Range Comments PLEURAL FLD CHOLESTEROL (test code=CHOLPL) MG/DL SPECIMEN COMMENTS: RIGHT UPPER PLEURAL FLUIDPLEURAL FLD [id number] 13:27:00* Test Item Value Reference Range Comments PLEURAL FLD TRIGLYCERIDE (test code=TRIGPL) MG/DL SPECIMEN COMMENTS: RIGHT UPPER PLEURAL FLUID- XR CHEST 1 [id number] 12:49:00 FAX: Gene Hernandez MD [phone] Leonardo: St: REG Name: Lissa RAMOSSUSAN LINDA [facility] : [birth year] Age/S: 88/M [address] [facility] Unit #: [id number] Loc: [place] [address] Phys: Dread Garrett MD Acct: [id number] Dis Date: Status: [place] [facility] [place] #: [phone] Exam Date: 06/09/2019 1230 FAX #: [phone] Reason: S/P RIGHT UPPER LOBE THORACENTESIS EXAMS: CPT CODE: [id number] XR CHEST 1 V 66594 HISTORY: Right upper thoracentesis. COMPARISON: Same day. Location: [facility]. Marked resolution of the right lateral loculated pleural effusion. No pne umothorax is visible. Patchy right lower lobe chronic appearing infiltrate with scarring and loss of lung volume and dependent changes. Left Port-A- Cath is unchanged. Cardiomegaly. IMPRESSION: N o pneumothorax after right thoracentesis. at 1249 Reported and sign ed by: Balwinder Sherwood M.D. CC: Gene Guzman MD Technologist: JOANNE FITZGERALD JR Trnscrd Date/Time/By: 06/09/2019 (4410) : By: [email or web address] Orig Print D/T: S: 06/09/2019 (3872) PAGE 1 Signed Report - XR CHEST 1 [id number] 11:41:00 FAX: Gene Hernandez MD [phone] Leonardo: St: REG Name: SUSAN GONG [facility] : [birth year] Age/S: 88/M [address] [facility] Unit #: [id number] Loc: [place] [address] Phys: Draed Garrett MD Acct: [id number] Dis Date: Status: [place] [facility] [place] #: [phone] Exam Date: 06/09/2019 1123 FAX #: [phone] Reason: S/P RIGHT THORACENTESIS EXAMS: CPT CODE: [id number] XR CHEST 1 V 01782 HISTORY: Post right thoracentesis. COMPARISON: March 25, 2019. Location: [facility]. Left Port-A-Cath is unchanged. Loculated right lateral costal pleural effusion noted. Pneumothorax is not visible. Chronic infiltrate and scarring within the right lower lobe. Left lung is clear. Cardiomega ly. IMPRESSION: No pneumothorax with persisten t partially loculated moderate right lateral costal pleural effusion wit h small right basal effusion as well. at 1147 Reported and signed by: Balwinder Sherwood M.D. CC: Gene Guzman MD Technologist: Rizwana Amezcua RT(R) Trnscrd Date/Time/By: 06/09/2019 (5601) : By: [email or web address] Orig Print D/T: S: 06/09/2019 (8102) PAGE 1 Signed Report COMPREHENSIVE METABOLIC [id number] 08:29:00* Test Item Value Reference Range Comments SODIUM (test code=NA) 134 mmol/L 136-145 POTASSIUM (test code=K) 4.1 mmol/L 3.5-5.1 CHLORIDE (test code=CL) 100.0 mmol/L 98-107 CARBON DIOXIDE (test code=CO2) 27.0 mmol/L 21-32 ANION GAP (test code=GAP) 11.1 10-20 GLUCOSE (test code=GLU) 95 mg/dL 74-106 BLOOD UREA NITROGEN (test code=BUN) 9 mg/dL 7-18 GLOMERULAR FILTRATION RATE (test code=GFR) > 60 mL/min >=60 Estimated GFR by using Modified MDRD formula.Chronic kidney disease is defined as either kidney damageor GFR <60 mL/min/1.73 m2 for >3 months. CREATININE (test code=CREAT) 1.10 mg/dL 0.7-1.3 BUN/CREATININE RATIO (test code=BUN/CREA) 8.2 10-20 TOTAL PROTEIN (test code=PROT) 7.2 gram/dL 6.4-8.2 ALBUMIN (test code=ALB) 3.0 g/dL 3.4-5.0 GLOBULIN (test code=GLOB) 4.2 gram/dL 2.7-4.2 ALBUMIN/GLOBULIN RATIO (test code=A/G) 0.7 0.75-1.50 CALCIUM (test code=CA) 9.1 mg/dL 8.5-10.1 BILIRUBIN TOTAL (test code=BILT) 0.50 mg/dL 0.0-1.0 SGOT/AST (test code=AST) 26 IUnit/L 15-37 SGPT/ALT (test code=ALT) 20 IUnit/L 12-78 ALKALINE PHOSPHATASE TOTAL (test code=ALKP) 123 IUnit/L 45-117 Note change in reference range due to change in reagent. COMPREHENSIVE METABOLIC [id number] 08:21:00* Test Item Value Reference Range Comments SODIUM (test code=NA) 134 mmol/L 136-145 POTASSIUM (test code=K) 4.1 mmol/L 3.5-5.1 CHLORIDE (test code=CL) 100.0 mmol/L 98-107 CARBON DIOXIDE (test code=CO2) mmol/L 21-32 ANION GAP (test code=GAP) 10-20 GLUCOSE (test code=GLU) mg/dL 74-106 BLOOD UREA NITROGEN (test code=BUN) mg/dL 7-18 GLOMERULAR FILTRATION RATE (test code=GFR) mL/min >=60 CREATININE (test code=CREAT) mg/dL 0.7-1.3 BUN/CREATININE RATIO (test code=BUN/CREA) 10-20 TOTAL PROTEIN (test code=PROT) gram/dL 6.4-8.2 ALBUMIN (test code=ALB) g/dL 3.4-5.0 GLOBULIN (test code=GLOB) gram/dL 2.7-4.2 ALBUMIN/GLOBULIN RATIO (test code=A/G) 0.75-1.50 CALCIUM (test code=CA) mg/dL 8.5-10.1 BILIRUBIN TOTAL (test code=BILT) mg/dL 0.0-1.0 SGOT/AST (test code=AST) IUnit/L 15-37 SGPT/ALT (test code=ALT) IUnit/L 12-78 ALKALINE PHOSPHATASE TOTAL (test code=ALKP) IUnit/L 45-117 PROTHROMBIN [id number] 08:14:00* Test Item Value Reference Range Comments PROTHROMBIN TIME PATIENT (test code=PTP) 12.3 seconds 9.0-14.0 INTERNATIONAL NORMAL RATIO (test code=INR) 1.1 0.8-1.2 The therapeutic range for oral anticoagulant therapy formost indications is an international normalized ratio (INR)of between 2.0 and 3.0. The recommended therapeutic INRrange for various clinical situations is listed below: Clinical Situation INR range Pulmonary e mbolism treatment (2.0-3.0)Venous thrombosis treatmentVenous thrombosis prophylaxis (high risk surgery)Prevention of systemic embolism from: Acute myocardial infarction Valvular heart disease Atrial fibrillation Mechanical prosthetic heart valves (2.5-3.5) THROMBOPLASTIN TIME [id number] 08:14:00* Test Item Value Reference Range Comments THROMBOPLASTIN TIME PARTIAL (test code=PTT) 27.3 seconds 25.0-36.5 CBC W/AUTO [id number] 08:04:00* Test Item Value Reference Range Comments WHITE BLOOD CELL (test code=WBC) 4.7 K/mm3 4.5-12.5 RED BLOOD CELL (test code=RBC) 3.60 mill/mm3 4.0-5.8 HEMOGLOBIN (test code=HGB) 11.6 gram/dL 13.0-17.5 HEMATOCRIT (test code=HCT) 36.5 % 42.0-52.0 MEAN CELL VOLUME (test code=MCV) 101.4 fL 80-98 MEAN CELL HGB (test code=MCH) 32.2 picogram 27.0-33.0 MEAN CELL HGB CONCETRATION (test code=MCHC) 31.8 gram/dL 33.0-36.0 RED CELL DISTRIBUTION WIDTH (test code=RDW) 15.0 % 11.6-16.2 RED CELL DISTRIBUTION WIDTH SD (test code=RDW-SD) 56.1 fL 37.0-51.0 PLATELET COUNT (test code=PLT) 215 K/mm3 150-450 MEAN PLATELET VOLUME (test code=MPV) 8.4 fL 6.7-11.0 NEUTROPHIL % (test code=NT%) 62.7 % 39.0-69.0 IMMATURE GRANULOCYTE % (test code=IG%) 0.4 % 0.0-5.0 LYMPHOCYTE % (test code=LY%) 19.8 % 25.0-55.0 MONOCYTE % (test code=MO%) 11.7 % 0.0-10.0 EOSINOPHIL % (test code=EO%) 4.1 % 0.0-5.0 BASOPHIL % (test code=BA%) 1.3 % 0.0-1.0 NUCLEATED RBC % (test code=NRBC%) 0.0 % 0-0 NEUTROPHIL # (test code=NT#) 2.94 K/mm3 1.8-7.7 IMMATURE GRANULOCYTE # (test code=IG#) 0.02 x10 3/uL 0-0.03 LYMPHOCYTE # (test code=LY#) 0.93 K/mm3 1.0-5.0 MONOCYTE # (test code=MO#) 0.55 K/mm3 0-0.8 EOSINOPHIL # (test code=EO#) 0.19 K/mm3 0.0-0.5 BASOPHIL # (test code=BA#) 0.06 K/mm3 0.0-0.2 NUCLEATED RBC # (test code=NRBC#) 0.00 K/mm3 0.0-0.1 MANUAL DIFF REQUIRED (test code=MDIFF) NO RETICULOCYTE [id number] 07:11:00* Test Item Value Reference Range Comments RETICULOCYTE COUNT (test code=RETICT) 2.2 % 0.5-2.0 RETIC COUNT ABSOLUTE (test code=RET#) 0.076 mill/mm3 0.016-0.095 IMMATURE RETICULOCYTE FRACTION (test code=IRF) 14.0 % 2.3-13.4 Values above normal range indicate an increase in RBCcellular response from bone marrow. RETICULOCYTE HGB EQUIVALENT (test code=RETHE) 33.5 pg 28.2-35.7 RET-He is a direct estimate of recent functionalavailability of iron in the cell, therefore, decreasedRET-He is indicative of iron deficiency. [id number] 07:11:00* Test Item Value Reference Range Comments HAPTOGLOBIN (test code=HAPT) 150 mg/dL 38-329 Please note reference interval changePerformed At: [address] [id number] Richardson MD Ph:[phone] PROTHROMBIN [id number] 10:30:00* Test Item Value Reference Range Comments PROTHROMBIN TIME PATIENT (test code=PTP) 12.8 seconds 9.0-14.0 INTERNATIONAL NORMAL RATIO (test code=INR) 1.1 0.8-1.2 The therapeutic range for oral anticoagulant therapy formost indications is an international normalized ratio (INR)of between 2.0 and 3.0. The recommended therapeutic INRrange for various clinical situations is listed below: Clinical Situation INR range Pulmonary e mbolism treatment (2.0-3.0)Venous thrombosis treatmentVenous thrombosis prophylaxis (high risk surgery)Prevention of systemic embolism from: Acute myocardial infarction Valvular heart disease Atrial fibrillation Mechanical prosthetic heart valves (2.5-3.5) IS PATIENT ON ANTICOAGULANTS? NTHROMBOPLASTIN TIME [id number] 10:30:00* Test Item Value Reference Range Comments THROMBOPLASTIN TIME PARTIAL (test code=PTT) 26.8 seconds 25.0-36.5 IS PATIENT ON ANTICOAGULANTS? NLACTIC DEHYDROGENASE(LDH)2019-06-05 17:31:00* Test Item Value Reference Range Comments LACTIC DEHYDROGENASE(LDH) (test code=LDH) 292 IUnit/L 84-246 FE W/TOTAL IRON BINDING CAP.2019-06-05 17:31:00* Test Item Value Reference Range Comments SERUM IRON (test code=IRON) 38 ug/dL 50-175 TOTAL IRON BINDING CAPACITY (test code=TIBC) 235 mcg/dL 250-450 IRON SATURATION (test code=FESAT) 16.17 % 13-45 VITAMIN [id number] 17:31:00* Test Item Value Reference Range Comments VITAMIN B12 (test code=VITB12) 985 pg/mL 193-986 FOLIC [id number] 17:31:00* Test Item Value Reference Range Comments FOLIC ACID (test code=FOL) 19.3 ng/mL 3.10-17.50 [id number] 17:31:00* Test Item Value Reference Range Comments FERRITIN (test code=SEVEN) 243 ng/mL 8-388 RETICULOCYTE [id number] 16:42:00* Test Item Value Reference Range Comments RETICULOCYTE COUNT (test code=RETICT) 2.2 % 0.5-2.0 RETIC COUNT ABSOLUTE (test code=RET#) 0.076 mill/mm3 0.016-0.095 IMMATURE RETICULOCYTE FRACTION (test code=IRF) 14.0 % 2.3-13.4 Values above normal range indicate an increase in RBCcellular response from bone marrow. RETICULOCYTE HGB EQUIVALENT (test code=RETHE) 33.5 pg 28.2-35.7 RET-He is a direct estimate of recent functionalavailability of iron in the cell, therefore, decreasedRET-He is indicative of iron deficiency. [id number] 16:42:00* Test Item Value Reference Range Comments HAPTOGLOBIN (test code=HAPT) mg/dL CBC W/AUTO [id number] 16:41:00* Test Item Value Reference Range Comments WHITE BLOOD CELL (test code=WBC) 5.6 K/mm3 4.5-12.5 RED BLOOD CELL (test code=RBC) 3.55 mill/mm3 4.0-5.8 HEMOGLOBIN (test code=HGB) 11.4 gram/dL 13.0-17.5 HEMATOCRIT (test code=HCT) 35.3 % 42.0-52.0 MEAN CELL VOLUME (test code=MCV) 99.4 fL 80-98 MEAN CELL HGB (test code=MCH) 32.1 picogram 27.0-33.0 MEAN CELL HGB CONCETRATION (test code=MCHC) 32.3 gram/dL 33.0-36.0 RED CELL DISTRIBUTION WIDTH (test code=RDW) 14.9 % 11.6-16.2 RED CELL DISTRIBUTION WIDTH SD (test code=RDW-SD) 54.4 fL 37.0-51.0 PLATELET COUNT (test code=PLT) 245 K/mm3 150-450 MEAN PLATELET VOLUME (test code=MPV) 8.8 fL 6.7-11.0 NEUTROPHIL % (test code=NT%) 68.0 % 39.0-69.0 IMMATURE GRANULOCYTE % (test code=IG%) 0.7 % 0.0-5.0 LYMPHOCYTE % (test code=LY%) 16.2 % 25.0-55.0 MONOCYTE % (test code=MO%) 10.6 % 0.0-10.0 EOSINOPHIL % (test code=EO%) 3.6 % 0.0-5.0 BASOPHIL % (test code=BA%) 0.9 % 0.0-1.0 NUCLEATED RBC % (test code=NRBC%) 0.0 % 0-0 NEUTROPHIL # (test code=NT#) 3.78 K/mm3 1.8-7.7 IMMATURE GRANULOCYTE # (test code=IG#) 0.04 x10 3/uL 0-0.03 LYMPHOCYTE # (test code=LY#) 0.90 K/mm3 1.0-5.0 MONOCYTE # (test code=MO#) 0.59 K/mm3 0-0.8 EOSINOPHIL # (test code=EO#) 0.20 K/mm3 0.0-0.5 BASOPHIL # (test code=BA#) 0.05 K/mm3 0.0-0.2 NUCLEATED RBC # (test code=NRBC#) 0.00 K/mm3 0.0-0.1 MANUAL DIFF REQUIRED (test code=MDIFF) NO - CT ABD PELVIS [id number] 14:00:00 Name: SUSAN VAN [facility] : 1930 Age/S: 88 / M [address] [facility] Unit #: [id number] [place]: [place] [address] Phys: Briseida Figueredo DO Acct: [id number] Dis Date: Status: REG ER PHONE #: [phone] Exam Date: 06/04/2019 1348 FAX #: [phone] Reason: ABD PAIN, R/O OBSTRUCTION EXAMS: CPT CODE: [id number] CT ABD PELVIS W/CONT 45790 EXAM: CT of the abdomen and pelvis with contrast; INFORMATION: Abdominal pain, rule out bowel obstruction; TECHNIQUE AND FINDINGS: CT dose reduction protocol; 5 mm cuts through the abdomen and pelvis during and after intravenous infusion of contrast material. There are no acute bowel abnormalities; no evidence of obstruction. Overall, no change compared with a recent study from May 25, 2019; liver, biliary system, pancreas, spleen, adrenal glands and kidneys unremarkable. No pelvic mass lesions. There is a large right subpulmonic effusion which indents and displaces the liver. IMPRESSION: 1. No change compared with a recent study from May 25, 2019. 2. No evidence of bowel obstruction or other acute abdominal or pelvic abnormalities. 3. Large subpulmonic pleural effusion extending way into the right costophrenic angle and displacing and indenting the right lobe of the liver. Location code: [facility] at 1400 Reported and signed by: Duy Broderick M.D. CC: Gene Guzman MD; Briseida Figueredo DO Technologist:Susanne Mcbride RT(R),CT CTDI: DLP: Trnscb Date/Time: 06/04/2019 (1400) [email or web address] Orig Print D/T: S: 06/04/2019 (9640) PAGE 1 Signed Report - US ABDOMEN [id number] 12:41:00 Name: SUSAN VAN [facility] : 1930 Age/S: 88 / M [address] [facility] Unit #: [id number] Loc: [place] [address] Phys: Briseida Figueredo DO Acct: [id number] Dis Date: Status: REG ER PHONE #: [phone] Exam Date: 06/04/2019 1220 FAX #: [phone] Reason: Abdominal Pain EXAMS: CPT CODE: [id number] [facility] [address] EXAM: Ultrasound abdomen, limited; INFORMATION: Abdominal pain; FINDINGS: The liver is of normal size and shape; no focal lesions. The gallbladder is of normal diameter and wall thickness; no stones; no evidence of intra or extrahepatic biliary dilatation. The pancreas is largely obscured by bowel gas; no obvious lesions. The right kidney is of normal size and shape; no hydronephrosis, no stones and no parenchymal abnormalities. The right kidney measures 9.2 x 9 x 3.9 cm. Imaged portions of the IVC and abdominal aorta are unremarkable. Again demonstrated is a complex multiseptated fluid collection adjacent to the right lobe of the liver. It appears to be from the liver by the diaphragm suggesting that this is a partially organized, subpulmonic effusion. IMPRESSION: 1. No evidence of gallstones or other significant intra-abdominal pathology. 2. On today's study both, the intra and extrahepatic bile ducts appear to be of normal caliber. 3. Complex right subpulmonic pleural effusion. Location code: [facility] at 1241 Reported and signed by: Duy Broderick M.D. CC: Gene Guzman MD; Briseida Figueredo DO Technologist: DANIELLA WEST Trnscb Date/Time: 06/04/2019 (7991) [email or web address] Orig Print D/T: S: 06/04/2019 (1182) Probe: PAGE 1 Signed Report BASIC METABOLIC [id number] 12:12:00* Test Item Value Reference Range Comments SODIUM (test code=NA) 137 mmol/L 136-145 POTASSIUM (test code=K) 3.7 mmol/L 3.5-5.1 CHLORIDE (test code=CL) 106.0 mmol/L 98-107 CARBON DIOXIDE (test code=CO2) 22.0 mmol/L 21-32 ANION GAP (test code=GAP) 12.7 10-20 GLUCOSE (test code=GLU) 87 mg/dL 74-106 BLOOD UREA NITROGEN (test code=BUN) 9 mg/dL 7-18 GLOMERULAR FILTRATION RATE (test code=GFR) > 60 mL/min >=60 Estimated GFR by using Modified MDRD formula.Chronic kidney disease is defined as either kidney damageor GFR <60 mL/min/1.73 m2 for >3 months. CREATININE (test code=CREAT) 0.80 mg/dL 0.7-1.3 BUN/CREATININE RATIO (test code=BUN/CREA) 11.3 10-20 CALCIUM (test code=CA) 7.5 mg/dL 8.5-10.1 HEPATIC FUNCTION [id number] 12:12:00* Test Item Value Reference Range Comments TOTAL PROTEIN (test code=PROT) 5.9 gram/dL 6.4-8.2 ALBUMIN (test code=ALB) 2.4 g/dL 3.4-5.0 GLOBULIN (test code=GLOB) 3.5 gram/dL 2.7-4.2 ALBUMIN/GLOBULIN RATIO (test code=A/G) 0.7 0.75-1.50 BILIRUBIN TOTAL (test code=BILT) 0.30 mg/dL 0.0-1.0 BILIRUBIN DIRECT (test code=BILD) 0.12 mg/dL 0.0-0.20 SGOT/AST (test code=AST) 28 IUnit/L 15-37 SGPT/ALT (test code=ALT) 19 IUnit/L 12-78 ALKALINE PHOSPHATASE TOTAL (test code=ALKP) 96 IUnit/L 45-117 Note change in reference range due to change in reagent. [id number] 12:12:00* Test Item Value Reference Range Comments LIPASE (test code=LIP) 78 U/L 73.0-393.0 [id number] 12:12:00* Test Item Value Reference Range Comments TROPONIN-I (test code=TROPI) 0.025 ng/mL 0-0.045 BASIC METABOLIC [id number] 12:02:00* Test Item Value Reference Range Comments SODIUM (test code=NA) 137 mmol/L 136-145 POTASSIUM (test code=K) 3.7 mmol/L 3.5-5.1 CHLORIDE (test code=CL) 106.0 mmol/L 98-107 CARBON DIOXIDE (test code=CO2) mmol/L 21-32 ANION GAP (test code=GAP) 10-20 GLUCOSE (test code=GLU) mg/dL 74-106 BLOOD UREA NITROGEN (test code=BUN) mg/dL 7-18 GLOMERULAR FILTRATION RATE (test code=GFR) mL/min >=60 CREATININE (test code=CREAT) mg/dL 0.7-1.3 BUN/CREATININE RATIO (test code=BUN/CREA) 10-20 CALCIUM (test code=CA) mg/dL 8.5-10.1 HEPATIC FUNCTION [id number] 12:02:00* Test Item Value Reference Range Comments TOTAL PROTEIN (test code=PROT) gram/dL 6.4-8.2 ALBUMIN (test code=ALB) g/dL 3.4-5.0 GLOBULIN (test code=GLOB) gram/dL 2.7-4.2 ALBUMIN/GLOBULIN RATIO (test code=A/G) 0.75-1.50 BILIRUBIN TOTAL (test code=BILT) mg/dL 0.0-1.0 BILIRUBIN DIRECT (test code=BILD) mg/dL 0.0-0.20 SGOT/AST (test code=AST) IUnit/L 15-37 SGPT/ALT (test code=ALT) IUnit/L 12-78 ALKALINE PHOSPHATASE TOTAL (test code=ALKP) IUnit/L 45-117 [id number] 12:02:00* Test Item Value Reference Range Comments LIPASE (test code=LIP) U/L 73.0-393.0 [id number] 12:02:00* Test Item Value Reference Range Comments TROPONIN-I (test code=TROPI) ng/mL 0-0.045 URINALYSIS [id number] 11:07:00* Test Item Value Reference Range Comments UA COLOR (test code=COLU) Light-Yellow YELLOW UA APPEARANCE (test code=APPU) CLEAR CLEAR UA GLUCOSE DIPSTICK (test code=DGLUU) NEGATIVE mg/dL NEGATIVE UA BILIRUBIN DIPSTICK (test code=BILU) NEGATIVE mg/dL NEGATIVE UA KETONE DIPSTICK (test code=KETU) NEGATIVE mg/dL NEGATIVE UA SPECIFIC GRAVITY (test code=SGU) 1.011 1.001-1.035 UA BLOOD DIPSTICK (test code=LIZZY) 0.2 mg/dL (2+) mg/dL NEGATIVE UA PH DIPSTICK (test code=NATALIIA) 5.5 5.0-8.0 UA PROTEIN DIPSTICK (test code=PROU) NEGATIVE mg/dL NEGATIVE UA UROBILINIOGEN DIPSTICK (test code=URO) Normal mg/dL NEGATIVE UA NITRITE DIPSTICK (test code=MAYELA) NEGATIVE NEGATIVE UA LEUKOCYTE ESTERASE W REFLEX (test code=LEUUR) NEGATIVE Theresa/uL NEGATIVE UA WBC (test code=WBCU) 0-5 per HPF 0-5 UA RBC (test code=RBCU) 6-10 #/HPF 0-5 UA EPITHELIAL CELLS (test code=EPIU) None seen per HPF FEW UA BACTERIA (test code=BACU) NONE SEEN #/HPF NONE UA MUCUS (test code=MUCU) FEW #/LPF FEW Urine Source? Clean CatchCBC W/O [id number] 11:06:00* Test Item Value Reference Range Comments WHITE BLOOD CELL (test code=WBC) 6.2 K/mm3 4.5-12.5 RED BLOOD CELL (test code=RBC) 3.56 mill/mm3 4.0-5.8 HEMOGLOBIN (test code=HGB) 11.4 gram/dL 13.0-17.5 HEMATOCRIT (test code=HCT) 36.1 % 42.0-52.0 MEAN CELL VOLUME (test code=MCV) 101.4 fL 80-98 MEAN CELL HGB (test code=MCH) 32.0 picogram 27.0-33.0 MEAN CELL HGB CONCETRATION (test code=MCHC) 31.6 gram/dL 33.0-36.0 RED CELL DISTRIBUTION WIDTH (test code=RDW) 14.7 % 11.6-16.2 PLATELET COUNT (test code=PLT) 216 K/mm3 150-450 MEAN PLATELET VOLUME (test code=MPV) 8.9 fL 6.7-11.0 URINALYSIS [id number] 11:06:00* Test Item Value Reference Range Comments UA COLOR (test code=COLU) Light-Yellow YELLOW UA APPEARANCE (test code=APPU) CLEAR CLEAR UA GLUCOSE DIPSTICK (test code=DGLUU) NEGATIVE mg/dL NEGATIVE UA BILIRUBIN DIPSTICK (test code=BILU) NEGATIVE mg/dL NEGATIVE UA KETONE DIPSTICK (test code=KETU) NEGATIVE mg/dL NEGATIVE UA SPECIFIC GRAVITY (test code=SGU) 1.011 1.001-1.035 UA BLOOD DIPSTICK (test code=LIZZY) 0.2 mg/dL (2+) mg/dL NEGATIVE UA PH DIPSTICK (test code=NATALIIA) 5.5 5.0-8.0 UA PROTEIN DIPSTICK (test code=PROU) NEGATIVE mg/dL NEGATIVE UA UROBILINIOGEN DIPSTICK (test code=URO) Normal mg/dL NEGATIVE UA NITRITE DIPSTICK (test code=MAYELA) NEGATIVE NEGATIVE UA LEUKOCYTE ESTERASE W REFLEX (test code=LEUUR) NEGATIVE Theresa/uL NEGATIVE UA WBC (test code=WBCU) per HPF 0-5 UA RBC (test code=RBCU) per HPF 0-5 UA EPITHELIAL CELLS (test code=EPIU) per HPF Few UA BACTERIA (test code=BACU) per HPF NONE Urine Source? Clean Catch- CT ABD PELVIS [id number] 12:38:00 Name: SUSAN VAN [facility] : 1930 Age/S: 88 / M [address] Unit #: [id number] Loc: [place] [address] Phys: Socorro Ring MD Acct: [id number] Di s Date: Status: REG ER PHONE #: [phone] Exam Date: 05/25/2019 1204 FAX #: [phone] Reason: abd pain EXAMS: CPT CODE: [id number] CT ABD PELVIS W/CONT 78403 HISTORY: Abdominal pain. COMPARISON: PET/CT scan from March 14, [address] scan from September 11, 2015. Location: [facility]. CT abdomen and pelvis with IV contrast: 100 mL of Isovue 370. Automated exposure control CT ABDOMEN: The lung bases again demonstrating multiple l arge loculated right basal pleural effusions. Bibasal subsegmental atelect asis. Left bases are clear. Pleural thickening as well within the right ba se at the site of uptake seen on the PET scan noted again. T he liver is enhancing homogeneously. No discrete parenchymal mass or nodul es are noted. Mass effect from the loculated right basal effusion on the l iver. Moderately distended gallbladder is without radiopaque stones. Chitra l vein and hepatic artery are patent. Unremarkable spleen. Stomach distended incompletely and is very limited in evaluation. N oncontrast pancreas demonstrating marked atrophy. Unremarkable adrenals. Kidneys are free from hydroureteronephrosis. Homogeneous enhancemen t. Calyceal stone in the right anterior interpolar location. Bilateral excretion. No pathologic adenopathy. Heavy atherosclerotic calc ifications of the abdominal and pelvic vasculature. Vasculature remains we ll opacified No bowel obstruction or colitis or diverticulitis or enteritis. Constipation. CT PELVIS: Study is m otion limited. Appendix is not visible. Pelvic bowel loops are unobstructe d. Unremarkable urinary bladder. Prostate is not well seen on this exam and is being obscured by artifact from patient's Gamma nail within t he PAGE 1 Signed Report (CONTINUED ) Name: SUSAN VAN [facility] [place] OB: 1930 Age/S: 88 / M [address] Unit #: [id number] Loc: [place] [address] Phys: Bri Ring MD Acct: [id number] Dis Date: Status: REG ER PHONE #: [phone] Exam Date: 05/25/2019 1204 FAX #: Reason: abd pain EXAMS: CPT CODE: [id number] CT ABD PELVIS W/CONT 41800 <Continued> right hip. No free fluid or free air. Subcutaneous tissues and musculature demonstrating patulous fat-containing right inguinal canal. No lytic or blastic lesions noted within the bony skeleton. Gamma nail is well- positioned within the left hip with artifact. Osteopenia. DJD. IMPRESSION: Multiple large loculated pleural effusions are unchanged from previous PET scan in the right supradiaphragmatic base. Uptake within the right basal pleural thickening is noted where uptake was seen on the previous PET scan consistent with malignancy. Mass effect on the right lobe the liver displacing it medially from loculated right basal pleural effusion. No acute intra-abdominal or intrapelvic pathology. at 1238 Reported and signed by: Balwinder Sherwood M.D. CC: Gene Guzman MD; Bri Ring MD Technologist:Susanne Mcbride RT(R),CT CTDI: DLP: Trnscb Date/Time: 05/25/2019 (1238) t.SDR.TH4 Orig Print D/T: S: 05/25/2019 (6484) PAGE 2 Signed Report - US ABDOMEN [id number] 12:13:00 Name: SUSAN VAN [facility] : 1930 Age/S: 88 / M [address] [facility] Unit #: [id number] Loc: [place] [address] Phys: Bri Ring MD Acct: [id number] Dis Date: Status: REG ER PHONE #: [phone] Exam Date: 05/25/2019 1155 FAX #: [phone] Reason: abd pain EXAMS: CPT CODE: [id number] US ABDOMEN LTD 73572 HISTORY: Abdominal pain. Location: [facility]. COMPARISON: PET/CT scan from March 24, 2019. Survey of the liver demonstrating normal echogenicity and texture without parenchymal mass or lesions. The liver measured 16.7 cm in length. No intrahepatic biliary ductal dilatation. Dilated CBD at 9.5 mm. Gallbladder is without gallstones. No pericholecystic fluid or wall thickening. No ascites. Right kidney is free from hydronephrosis and calyceal stones. Normal echogenicity and texture. Right kidney measured 8.4 cm in length. IVC, aorta and pancreas are completely obscured by bowel gas. Loculated right pleural effusion noted again which was seen on the previous PET CT scan. IMPRESSION: No gallstones. Dilated CBD at 9.5 mm. Intrahepatic ducts are normal. Unremarkable liver. Loculated right pleural effusion noted again. Unremarkable right kidney. at 1213 Reported and signed by: Balwinder Sherwood M.D. CC: Gene Guzman MD; Bri Ring MD Technologist: GENARO CHILD(R),[facility] Trncab Date/Time: 05/25/2019 (1213) t.SDR.TH4 Orig Print D/T: S: 05/25/2019 (3756) Probe: PAGE 1 Signed Report BASIC METABOLIC PANEL 2019-05-25 11:22:00* Test Item Value Reference Range Comments SODIUM (test code=NA) 134 mmol/L 136-145 POTASSIUM (test code=K) 4.3 mmol/L 3.5-5.1 CHLORIDE (test code=CL) 101.0 mmol/L 98-107 CARBON DIOXIDE (test code=CO2) 25.0 mmol/L 21-32 ANION GAP (test code=GAP) 12.3 10-20 GLUCOSE (test code=GLU) 85 mg/dL 74-106 BLOOD UREA NITROGEN (test code=BUN) 12 mg/dL 7-18 GLOMERULAR FILTRATION RATE (test code=GFR) > 60 mL/min >=60 Estimated GFR by using Modified MDRD formula.Chronic kidney disease is defined as either kidney damageor GFR <60 mL/min/1.73 m2 for >3 months. CREATININE (test code=CREAT) 0.90 mg/dL 0.7-1.3 BUN/CREATININE RATIO (test code=BUN/CREA) 13.3 10-20 CALCIUM (test code=CA) 8.8 mg/dL 8.5-10.1 HEPATIC FUNCTION [id number] 11:22:00* Test Item Value Reference Range Comments TOTAL PROTEIN (test code=PROT) 7.3 gram/dL 6.4-8.2 ALBUMIN (test code=ALB) 2.8 g/dL 3.4-5.0 GLOBULIN (test code=GLOB) 4.5 gram/dL 2.7-4.2 ALBUMIN/GLOBULIN RATIO (test code=A/G) 0.6 0.75-1.50 BILIRUBIN TOTAL (test code=BILT) 0.50 mg/dL 0.0-1.0 BILIRUBIN DIRECT (test code=BILD) 0.15 mg/dL 0.0-0.20 SGOT/AST (test code=AST) 28 IUnit/L 15-37 SGPT/ALT (test code=ALT) 20 IUnit/L 12-78 ALKALINE PHOSPHATASE TOTAL (test code=ALKP) 113 IUnit/L 45-117 Note change in reference range due to change in reagent. [id number] 11:22:00* Test Item Value Reference Range Comments LIPASE (test code=LIP) 58 U/L 73.0-393.0 [id number] 11:22:00* Test Item Value Reference Range Comments TROPONIN-I (test code=TROPI) <0.015 ng/mL 0-0.045 BASIC METABOLIC [id number] 11:10:00* Test Item Value Reference Range Comments SODIUM (test code=NA) 134 mmol/L 136-145 POTASSIUM (test code=K) 4.3 mmol/L 3.5-5.1 CHLORIDE (test code=CL) 101.0 mmol/L 98-107 CARBON DIOXIDE (test code=CO2) mmol/L 21-32 ANION GAP (test code=GAP) 10-20 GLUCOSE (test code=GLU) mg/dL 74-106 BLOOD UREA NITROGEN (test code=BUN) mg/dL 7-18 GLOMERULAR FILTRATION RATE (test code=GFR) mL/min >=60 CREATININE (test code=CREAT) mg/dL 0.7-1.3 BUN/CREATININE RATIO (test code=BUN/CREA) 10-20 CALCIUM (test code=CA) mg/dL 8.5-10.1 HEPATIC FUNCTION [id number] 11:10:00* Test Item Value Reference Range Comments TOTAL PROTEIN (test code=PROT) gram/dL 6.4-8.2 ALBUMIN (test code=ALB) g/dL 3.4-5.0 GLOBULIN (test code=GLOB) gram/dL 2.7-4.2 ALBUMIN/GLOBULIN RATIO (test code=A/G) 0.75-1.50 BILIRUBIN TOTAL (test code=BILT) mg/dL 0.0-1.0 BILIRUBIN DIRECT (test code=BILD) mg/dL 0.0-0.20 SGOT/AST (test code=AST) IUnit/L 15-37 SGPT/ALT (test code=ALT) IUnit/L 12-78 ALKALINE PHOSPHATASE TOTAL (test code=ALKP) IUnit/L 45-117 [id number] 11:10:00* Test Item Value Reference Range Comments LIPASE (test code=LIP) U/L 73.0-393.0 [id number] 11:10:00* Test Item Value Reference Range Comments TROPONIN-I (test code=TROPI) ng/mL 0-0.045 PROTHROMBIN [id number] 11:02:00* Test Item Value Reference Range Comments PROTHROMBIN TIME PATIENT (test code=PTP) 12.4 seconds 9.0-14.0 INTERNATIONAL NORMAL RATIO (test code=INR) 1.1 0.8-1.2 The therapeutic range for oral anticoagulant therapy formost indications is an international normalized ratio (INR)of between 2.0 and 3.0. The recommended therapeutic INRrange for various clinical situations is listed below: Clinical Situation INR range Pulmonary e mbolism treatment (2.0-3.0)Venous thrombosis treatmentVenous thrombosis prophylaxis (high risk surgery)Prevention of systemic embolism from: Acute myocardial infarction Valvular heart disease Atrial fibrillation Mechanical prosthetic heart valves (2.5-3.5) IS PATIENT ON ANTICOAGULANTS? NTHROMBOPLASTIN TIME [id number] 11:02:00* Test Item Value Reference Range Comments THROMBOPLASTIN TIME PARTIAL (test code=PTT) 26.9 seconds 25.0-36.5 IS PATIENT ON ANTICOAGULANTS? NURINALYSIS [id number] 10:57:00* Test Item Value Reference Range Comments UA COLOR (test code=COLU) Light-Yellow YELLOW UA APPEARANCE (test code=APPU) CLEAR CLEAR UA GLUCOSE DIPSTICK (test code=DGLUU) NEGATIVE mg/dL NEGATIVE UA BILIRUBIN DIPSTICK (test code=BILU) NEGATIVE mg/dL NEGATIVE UA KETONE DIPSTICK (test code=KETU) NEGATIVE mg/dL NEGATIVE UA SPECIFIC GRAVITY (test code=SGU) 1.009 1.001-1.035 UA BLOOD DIPSTICK (test code=LIZZY) 0.1 mg/dL (1+) mg/dL NEGATIVE UA PH DIPSTICK (test code=NATALIIA) 7.0 5.0-8.0 UA PROTEIN DIPSTICK (test code=PROU) NEGATIVE mg/dL NEGATIVE UA UROBILINIOGEN DIPSTICK (test code=URO) Normal mg/dL NEGATIVE UA NITRITE DIPSTICK (test code=MAYELA) NEGATIVE NEGATIVE UA LEUKOCYTE ESTERASE W REFLEX (test code=LEUUR) NEGATIVE Theresa/uL NEGATIVE UA WBC (test code=WBCU) 0-5 per HPF 0-5 UA RBC (test code=RBCU) 6-10 #/HPF 0-5 UA EPITHELIAL CELLS (test code=EPIU) FEW per HPF FEW UA BACTERIA (test code=BACU) NONE SEEN per HPF NONE Urine Source? Clean CatchCBC W/O [id number] 10:54:00* Test Item Value Reference Range Comments WHITE BLOOD CELL (test code=WBC) 6.2 K/mm3 4.5-12.5 RED BLOOD CELL (test code=RBC) 4.08 mill/mm3 4.0-5.8 HEMOGLOBIN (test code=HGB) 13.3 gram/dL 13.0-17.5 HEMATOCRIT (test code=HCT) 41.4 % 42.0-52.0 MEAN CELL VOLUME (test code=MCV) 101.5 fL 80-98 MEAN CELL HGB (test code=MCH) 32.6 picogram 27.0-33.0 MEAN CELL HGB CONCETRATION (test code=MCHC) 32.1 gram/dL 33.0-36.0 RED CELL DISTRIBUTION WIDTH (test code=RDW) 14.5 % 11.6-16.2 PLATELET COUNT (test code=PLT) 143 K/mm3 150-450 MEAN PLATELET VOLUME (test code=MPV) 10.5 fL 6.7-11.0 URINALYSIS [id number] 10:54:00* Test Item Value Reference Range Comments UA COLOR (test code=COLU) Light-Yellow YELLOW UA APPEARANCE (test code=APPU) CLEAR CLEAR UA GLUCOSE DIPSTICK (test code=DGLUU) NEGATIVE mg/dL NEGATIVE UA BILIRUBIN DIPSTICK (test code=BILU) NEGATIVE mg/dL NEGATIVE UA KETONE DIPSTICK (test code=KETU) NEGATIVE mg/dL NEGATIVE UA SPECIFIC GRAVITY (test code=SGU) 1.009 1.001-1.035 UA BLOOD DIPSTICK (test code=LIZZY) 0.1 mg/dL (1+) mg/dL NEGATIVE UA PH DIPSTICK (test code=NATALIIA) 7.0 5.0-8.0 UA PROTEIN DIPSTICK (test code=PROU) NEGATIVE mg/dL NEGATIVE UA UROBILINIOGEN DIPSTICK (test code=URO) Normal mg/dL NEGATIVE UA NITRITE DIPSTICK (test code=MAYELA) NEGATIVE NEGATIVE UA LEUKOCYTE ESTERASE W REFLEX (test code=LEUUR) NEGATIVE Theresa/uL NEGATIVE UA WBC (test code=WBCU) 0-5 per HPF 0-5 UA RBC (test code=RBCU) 6-10 #/HPF 0-5 UA EPITHELIAL CELLS (test code=EPIU) FEW per HPF FEW UA BACTERIA (test code=BACU) per HPF NONE Urine Source? Clean CatchCBC W/O [id number] 10:53:00* Test Item Value Reference Range Comments WHITE BLOOD CELL (test code=WBC) K/mm3 4.5-12.5 RED BLOOD CELL (test code=RBC) mill/mm3 4.0-5.8 HEMOGLOBIN (test code=HGB) 13.3 gram/dL 13.0-17.5 HEMATOCRIT (test code=HCT) % 42.0-52.0 MEAN CELL VOLUME (test code=MCV) fL 80-98 MEAN CELL HGB (test code=MCH) picogram 27.0-33.0 MEAN CELL HGB CONCETRATION (test code=MCHC) gram/dL 33.0-36.0 RED CELL DISTRIBUTION WIDTH (test code=RDW) % 11.6-16.2 PLATELET COUNT (test code=PLT) K/mm3 150-450 MEAN PLATELET VOLUME (test code=MPV) fL 6.7-11.0 URINALYSIS [id number] 10:41:00* Test Item Value Reference Range Comments UA COLOR (test code=COLU) Light-Yellow YELLOW UA APPEARANCE (test code=APPU) CLEAR CLEAR UA GLUCOSE DIPSTICK (test code=DGLUU) NEGATIVE mg/dL NEGATIVE UA BILIRUBIN DIPSTICK (test code=BILU) NEGATIVE mg/dL NEGATIVE UA KETONE DIPSTICK (test code=KETU) NEGATIVE mg/dL NEGATIVE UA SPECIFIC GRAVITY (test code=SGU) 1.009 1.001-1.035 UA BLOOD DIPSTICK (test code=LIZZY) 0.1 mg/dL (1+) mg/dL NEGATIVE UA PH DIPSTICK (test code=NATALIIA) 7.0 5.0-8.0 UA PROTEIN DIPSTICK (test code=PROU) NEGATIVE mg/dL NEGATIVE UA UROBILINIOGEN DIPSTICK (test code=URO) Normal mg/dL NEGATIVE UA NITRITE DIPSTICK (test code=MAYELA) NEGATIVE NEGATIVE UA LEUKOCYTE ESTERASE W REFLEX (test code=LEUUR) NEGATIVE Theresa/uL NEGATIVE UA WBC (test code=WBCU) per HPF 0-5 UA RBC (test code=RBCU) per HPF 0-5 UA EPITHELIAL CELLS (test code=EPIU) per HPF Few UA BACTERIA (test code=BACU) per HPF NONE Urine Source? Clean CatchCOMPREHENSIVE METABOLIC [id number] 13:39:00* Test Item Value Reference Range Comments SODIUM (test code=NA) 137 mmol/L 136-145 POTASSIUM (test code=K) 4.1 mmol/L 3.5-5.1 CHLORIDE (test code=CL) 104.0 mmol/L 98-107 CARBON DIOXIDE (test code=CO2) 25.0 mmol/L 21-32 ANION GAP (test code=GAP) 12.1 10-20 GLUCOSE (test code=GLU) 93 mg/dL 74-106 BLOOD UREA NITROGEN (test code=BUN) 15 mg/dL 7-18 GLOMERULAR FILTRATION RATE (test code=GFR) > 60 mL/min >=60 Estimated GFR by using Modified MDRD formula.Chronic kidney disease is defined as either kidney damageor GFR <60 mL/min/1.73 m2 for >3 months. CREATININE (test code=CREAT) 0.90 mg/dL 0.7-1.3 BUN/CREATININE RATIO (test code=BUN/CREA) 15.8 10-20 TOTAL PROTEIN (test code=PROT) 6.9 gram/dL 6.4-8.2 ALBUMIN (test code=ALB) 3.0 g/dL 3.4-5.0 GLOBULIN (test code=GLOB) 3.9 gram/dL 2.7-4.2 ALBUMIN/GLOBULIN RATIO (test code=A/G) 0.8 0.75-1.50 CALCIUM (test code=CA) 8.6 mg/dL 8.5-10.1 BILIRUBIN TOTAL (test code=BILT) 0.50 mg/dL 0.0-1.0 SGOT/AST (test code=AST) 26 IUnit/L 15-37 SGPT/ALT (test code=ALT) 17 IUnit/L 12-78 ALKALINE PHOSPHATASE TOTAL (test code=ALKP) 97 IUnit/L 45-117 Note change in reference range due to change in reagent. COMPREHENSIVE METABOLIC [id number] 13:31:00* Test Item Value Reference Range Comments SODIUM (test code=NA) 137 mmol/L 136-145 POTASSIUM (test code=K) 4.1 mmol/L 3.5-5.1 CHLORIDE (test code=CL) 104.0 mmol/L 98-107 CARBON DIOXIDE (test code=CO2) mmol/L 21-32 ANION GAP (test code=GAP) 10-20 GLUCOSE (test code=GLU) mg/dL 74-106 BLOOD UREA NITROGEN (test code=BUN) mg/dL 7-18 GLOMERULAR FILTRATION RATE (test code=GFR) mL/min >=60 CREATININE (test code=CREAT) mg/dL 0.7-1.3 BUN/CREATININE RATIO (test code=BUN/CREA) 10-20 TOTAL PROTEIN (test code=PROT) gram/dL 6.4-8.2 ALBUMIN (test code=ALB) g/dL 3.4-5.0 GLOBULIN (test code=GLOB) gram/dL 2.7-4.2 ALBUMIN/GLOBULIN RATIO (test code=A/G) 0.75-1.50 CALCIUM (test code=CA) mg/dL 8.5-10.1 BILIRUBIN TOTAL (test code=BILT) mg/dL 0.0-1.0 SGOT/AST (test code=AST) IUnit/L 15-37 SGPT/ALT (test code=ALT) IUnit/L 12-78 ALKALINE PHOSPHATASE TOTAL (test code=ALKP) IUnit/L 45-117 CBC W/AUTO [id number] 12:49:00* Test Item Value Reference Range Comments WHITE BLOOD CELL (test code=WBC) 4.8 K/mm3 4.5-12.5 RED BLOOD CELL (test code=RBC) 3.16 mill/mm3 4.0-5.8 HEMOGLOBIN (test code=HGB) 10.9 gram/dL 13.0-17.5 HEMATOCRIT (test code=HCT) 33.5 % 42.0-52.0 MEAN CELL VOLUME (test code=MCV) 106.0 fL 80-98 MEAN CELL HGB (test code=MCH) 34.5 picogram 27.0-33.0 MEAN CELL HGB CONCETRATION (test code=MCHC) 32.5 gram/dL 33.0-36.0 RED CELL DISTRIBUTION WIDTH (test code=RDW) 15.5 % 11.6-16.2 RED CELL DISTRIBUTION WIDTH SD (test code=RDW-SD) 60.0 fL 37.0-51.0 PLATELET COUNT (test code=PLT) 178 K/mm3 150-450 MEAN PLATELET VOLUME (test code=MPV) 8.7 fL 6.7-11.0 NEUTROPHIL % (test code=NT%) 64.6 % 39.0-69.0 IMMATURE GRANULOCYTE % (test code=IG%) 0.8 % 0.0-5.0 LYMPHOCYTE % (test code=LY%) 19.4 % 25.0-55.0 MONOCYTE % (test code=MO%) 13.8 % 0.0-10.0 EOSINOPHIL % (test code=EO%) 0.8 % 0.0-5.0 BASOPHIL % (test code=BA%) 0.6 % 0.0-1.0 NUCLEATED RBC % (test code=NRBC%) 0.0 % 0-0 NEUTROPHIL # (test code=NT#) 3.09 K/mm3 1.8-7.7 IMMATURE GRANULOCYTE # (test code=IG#) 0.04 x10 3/uL 0-0.03 LYMPHOCYTE # (test code=LY#) 0.93 K/mm3 1.0-5.0 MONOCYTE # (test code=MO#) 0.66 K/mm3 0-0.8 EOSINOPHIL # (test code=EO#) 0.04 K/mm3 0.0-0.5 BASOPHIL # (test code=BA#) 0.03 K/mm3 0.0-0.2 NUCLEATED RBC # (test code=NRBC#) 0.00 K/mm3 0.0-0.1 MANUAL DIFF REQUIRED (test code=MDIFF) NO [id number] 22:54:00* Test Item Value Reference Range Comments TROPONIN-I (test code=TROPI) 0.487 ng/mL 0-0.045 RESULT VERIFIED BY REPEAT ANALYSIS COMMENTS TO SEWER BRICKLAYER: COLLECT 3 HOURS AFTER PREVIOUS [id number] 20:52:00* Test Item Value Reference Range Comments GLUBED (test code=GLUBED) 107 mg/dL 74-106 Performed by certified brim pouncing machine operator at [facility] [id number] 19:00:00* Test Item Value Reference Range Comments TROPONIN-I (test code=TROPI) 0.161 ng/mL 0-0.045 Results called to [id number] by V.LAB.LT 03/25/19 1900Critical results verified and read back by Nurse? Y PT IN CATH PER STEEL DETAILER [email or web address] COMMENTS TO PHLEBOTOM IST: COLLECT 3 HOURS AFTER PREVIOUS SAMPLELIPID PROFILE (CORONARY RISK)2019-03-25 14:01:00* Test Item Value Reference Range Comments TRIGLYCERIDES (test code=TRIG) 88 mg/dL 20-150 CHOLESTEROL (test code=CHOL) 154 mg/dL 0-200 CHOLESTEROL/HDL RATIO (test code=CHOLHDL) 2.0 RATIO 0-4.9 RISK ASSOCIATED WITH CHOL/HDL RATIOS: Risk Male Female1/2 AVERAGE 3.43 3.27AVERAGE 4.97 4.442X AVERAGE 9.55 7.053X AVERAGE 23.39 11.04 REFERENCE VALUE IS RELATED TO RISK LEVELS ASRECOMMENDED BY THE [facility]. HEART, LUNG, AND BLOOD INST. HDL CHOLESTEROL (test code=HDL) 58 mg/dL 40-60 LIPOPROTEIN LDL (test code=LDL) 76 mg/dL 100-129 Reference Interval: mg/dL mmol/L Optimal <100 <2.6Near/above optimal 100-129 2.6- 3.3Borderline High 130-159 3.4-4.1High 160-189 4.1-4.9Very High >=190 >=4.9=========This LDL result is a direct measurement.========= PT IS IN CATH PER STEEL DETAILER NO NURSE ASSIGNED [id number] 03/25/19 1211 SPECIMEN COMMENTS: add to labsHEPATIC FUNCTION [id number] 14:01:00* Test Item Value Reference Range Comments TOTAL PROTEIN (test code=PROT) 6.9 gram/dL 6.4-8.2 ALBUMIN (test code=ALB) 3.2 g/dL 3.4-5.0 GLOBULIN (test code=GLOB) 3.7 gram/dL 2.7-4.2 ALBUMIN/GLOBULIN RATIO (test code=A/G) 0.9 0.75-1.50 BILIRUBIN TOTAL (test code=BILT) 0.50 mg/dL 0.0-1.0 BILIRUBIN DIRECT (test code=BILD) 0.08 mg/dL 0.0-0.20 SGOT/AST (test code=AST) 45 IUnit/L 15-37 SGPT/ALT (test code=ALT) 23 IUnit/L 12-78 ALKALINE PHOSPHATASE TOTAL (test code=ALKP) 100 IUnit/L 45-117 Note change in reference range due to change in reagent. PT IS IN CATH PER [employer] NO NURSE ASSIGNED [id number] 03/25/19 1211 SPECIMEN COMMENTS: add to labsTHYROID STIMULATING [id number] 14:01:00* Test Item Value Reference Range Comments THYROID STIMULATING HORMONE (test code=TSH) 5.910 uIU/mL 0.36-3.74 TSH REFERENCE RANGES: EUTHYROID: 0.35 - 4.3 mIU/mL HYPO : > 5.5 mIU/mL HYPER : < 0.35 mIU/mL PT IS IN CATH PER [employer] NO NURSE ASSIGNED [id number] 03/25/19 1211 SPECIMEN COMMENTS: add to labsBASIC METABOLIC [id number] 07:27:00* Test Item Value Reference Range Comments SODIUM (test code=NA) 137 mmol/L 136-145 POTASSIUM (test code=K) 4.9 mmol/L 3.5-5.1 CHLORIDE (test code=CL) 104.0 mmol/L 98-107 CARBON DIOXIDE (test code=CO2) 25.0 mmol/L 21-32 ANION GAP (test code=GAP) 12.9 10-20 GLUCOSE (test code=GLU) 88 mg/dL 74-106 BLOOD UREA NITROGEN (test code=BUN) 13 mg/dL 7-18 GLOMERULAR FILTRATION RATE (test code=GFR) > 60 mL/min >=60 Estimated GFR by using Modified MDRD formula.Chronic kidney disease is defined as either kidney damageor GFR <60 mL/min/1.73 m2 for >3 months. CREATININE (test code=CREAT) 1.00 mg/dL 0.7-1.3 BUN/CREATININE RATIO (test code=BUN/CREA) 12.4 10-20 CALCIUM (test code=CA) 9.1 mg/dL 8.5-10.1 Specimen 1+ Hemolysed.Some results MAY NOT be accurate due to hemolysis. [id number] 07:27:00* Test Item Value Reference Range Comments TROPONIN-I (test code=TROPI) <0.015 ng/mL 0-0.045 Specimen 1+ Hemolysed.Some results MAY NOT be accurate due to hemolysis.- XR CHEST 1 [id number] 07:17:00 FAX: Gene Hernandez MD [phone] Leonardo: St: REG FAX: Landon Araujo NP [phone] Name: SUSAN VAN [facility] : 1930 Age/S: 88/M [address] [facility] Unit #: [id number] Loc: [place] [address] Phys: Landon Araujo NP Acct: [id number] Dis Date: Status: REG ER PHONE #: [phone] Exam Date: 03/25/2019 0637 FAX #: [phone] Reason: CHEST PAIN EXAMS: CPT CODE: [id number] XR CHEST 1 V 31921 HISTORY: CHEST PAIN TECHNIQUE: AP chest x-ray COMPARISON: 11/26/18 IMPRESSION: Partially marginated opacification of the right hemithorax related to known loculated pleural fluid collection and pleural thickening, reported on recent PET/CT. Left lung is clear. Normal heart size. Left Port-A-Cath. at 0717 Reported and signed by: Janice Kothari D.O. CC: Gene Guzman MD; Landon Araujo NP Technologist: JOANNE FITZGERALD JR Trnscrd Date/Time/By: 2018 (0717) : By: [email or web address] Orig Print D/T: S: 03/25/2019 (6695) PAGE 1 Signed Report CBC W/O [id number] 07:09:00* Test Item Value Reference Range Comments WHITE BLOOD CELL (test code=WBC) 4.4 K/mm3 4.5-12.5 RED BLOOD CELL (test code=RBC) 3.20 mill/mm3 4.0-5.8 HEMOGLOBIN (test code=HGB) 11.1 gram/dL 13.0-17.5 HEMATOCRIT (test code=HCT) 33.9 % 42.0-52.0 MEAN CELL VOLUME (test code=MCV) 105.9 fL 80-98 MEAN CELL HGB (test code=MCH) 34.7 picogram 27.0-33.0 MEAN CELL HGB CONCETRATION (test code=MCHC) 32.7 gram/dL 33.0-36.0 RED CELL DISTRIBUTION WIDTH (test code=RDW) 15.6 % 11.6-16.2 PLATELET COUNT (test code=PLT) 214 K/mm3 150-450 MEAN PLATELET VOLUME (test code=MPV) 9.3 fL 6.7-11.0 - PET[id number]:00:00 FAX: Gene Hernandez MD [phone] Leonardo: St: [facility] FAX: Luisito Lagunas MD [phone] Name: SUSAN VAN LINDA [facility] : 1930 Age/S: 88/M [address] [facility] Unit #: [id number] Loc: [place] [address] Phys: Luisito Lagunas MD Acct: [id number] Dis Date: Status: UGO CLI PHONE #: [phone] Exam Date: 03/14/2019 1130 FAX #: [phone] Reason: MEVOTHELIOMA OR PLEURA Report Has Been Amended EXAMS: CPT CODE: [id number] PET/[place] [address] Addendum - 03/23/2019 SIGNED 03/23/2019 ADD ENDUM: [id number] NM/[id number] ADDENDUM: COMPARISON PET/CT scans are now available from October 30, 2017 and May 29, 2017. The uptake within the right diaphragmatic pleural surface and the paracardiac mediastinal surface is new from previous 2 examinations. No uptake was noted in the previous 2 examinations. IMPRESSION: New uptake within the right lower diaphragmatic pleural surface extending into both medially and laterally as well within the mediastinal paracardiac location with SUV ranging up to 5.4 consistent with recurren ce. These were not seen on the previous 2 exams. These findings we re discussed with Dr. Ward at 4:19 PM. at 2080 Reported and jaylin d by: Balwinder Sherwood M.D. Transcribed: 03/23/2019 (1681) [facility] GH.VGE Report HISTORY: Mesothelioma staging. COMPARISO N: None available. PET/CT SCAN: 10.6 mCi of FDG administered. Imag es obtained from the skull base to the upper thighs 1 hour postinjection. Blood glucose kmeul=418 mg/dL. HEAD AND NECK: Intense uptake within the brain parenchyma limited evaluation. Physiologic pharyngeal up take. CHEST: Port-A-Cath on the left. Loculated right pleural effu fabian. PAGE 1 Signed Report (CONTIN UED) FAX: Gene Hernandez MD [phone] Leonardo: B St: DEP FAX: Luisito Lagunas MD [phone] Name: SUSAN VAN [facility] : 1930 Age/S: 88/M [address] Unit #: [id number] Loc: [place] [address] Phys: Luisito Lagunas MD Acct: [id number] Dis Date: Status: DEP CLI PHONE #: [phone] Exam Date: 2018 1130 FAX #: [phone] Reason: MEVOTHELIOMA OR PLEURA Report Has Been Amende d EXAMS: CPT CODE: [id number] PET/CT [place]UMOR [place] MIDTH [address] < Continued> Extensive uptake within thickened right pleura within the diaphragmatic pleural surfaces both medially and laterally as well as extensively within the lateral right lower costal pleural surface as well within the mediastinal paracardiac pleural surface. 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 Loss of lung volume and shift the mediastinum towards the right. Uptake within the anterior lateral left lower rib fracture with SUV uptake ranging up to 2.5 likely related to fracture and remodeling. No pathologic mesenteric, retroperitoneal or retrocrural adenopathy or uptake. No chest wall uptake. ABDOMEN: No hepatic or adrenal uptake. Excretion from both kidneys without abnormal uptake. No splenic or pancreatic uptake. No pathologic mesenteric, retroperitoneal or retrocrural adenopathy or uptake. PELVIS: Excretion into the urinary bladder. No pelvic pathologic adenopathy or uptake. No significant prostate uptake. MUSCULOSKELETAL: No metastatic disease. IMPRESSION: Extensive pleural thickening and pleural uptake within the diaphragmatic right pleura as well as the right lower lateral costal surface and the right paracardiac mediastinal surface. SUV uptake ranging up to 5.4. Uptake within the left lower posterior lateral fracture left rib likely related to remodeling. No other abnormal uptake to suggest metastatic disease. at 1509 Reported and signed by: Homero Sherwood M.D. CC: Gene Guzman MD; Luisito Lagunas MD Technologist: Ivana Spaulding RT(N) Trnscrd Date/Time/By: 03/14/2019 (1506) : By: [email or web address] Orig Print D/T: S: 12/2018 (7573) PAGE 2 Signed Repo rt - PET/CT TUMOR SK [id number] 15:09:00 FAX: Gene Hernandez MD [phone] Leonardo: B St: REG FAX: Luisito Lagunas MD [phone] Name: SUSAN VAN [facility] : 1930 Age/S: 88/M [address] [facility] Unit #: [id number] Loc: [place] [address] Phys: Luisito Lagunas MD Acct: [id number] Dis Date: Status: REG CLI PHONE #: [phone] Exam Date: 03/14/2019 1130 FAX #: [phone] Reason: MEVOTHELIOMA OR PLEURA EXAMS: CPT CODE: [id number] PET/CT TUMOR SK MIDTH [address] HISTORY: Mesothelioma staging. COMPARISON: None av ailable. PET/CT SCAN: 10.6 mCi of FDG administered. Images obtaine d from the skull base to the upper thighs 1 hour postinjection. Blood gluc ose fvvsb=080 mg/dL. HEAD AND NECK: Intense uptake within th e brain parenchyma limited evaluation. Physiologic pharyngeal uptake. CHEST: Port-A-Cath on the left. Loculated right pleural effusion. Extensive uptake within thickened right pleura within the diaphragmatic pleural surfaces both medially and laterally as well as extensively within the lateral right lower costal pleural surface as well within the mediast inal paracardiac pleural surface. SUV ranging between 4-5.4 consistent wit h mesothelioma. Loss of lung volume and shift the mediastinum towards the right. Uptake within the anterior lateral left lower rib fracture with SUV uptake ranging up to 2.5 likely related to fracture and remodeling. No pa thologic mesenteric, retroperitoneal or retrocrural adenopathy or uptake. No chest wall uptake. ABDOMEN: No hepatic or adrenal uptake. Excretion from both kidneys without abnormal uptake. No splenic or pancre atic uptake. No pathologic mesenteric, retroperitoneal or retrocrural toya opathy or uptake. PELVIS: Excretion into the urinary bladder . No pelvic pathologic adenopathy or uptake. No significant prostate uptak e. MUSCULOSKELETAL: No metastatic disease. IMPRESS ION: Extensive pleural thickening and pleural uptake within th e diaphragmatic right pleura as well as the right lower lateral costal surface and the right paracardiac mediastinal surface. SUV uptake ranging up to 5.4. Uptake within the left lower posterior lateral fract ure left rib likely related to remodeling. No other abnormal uptake to s uggest metastatic disease. PAGE 1 Signed Report (CONTINUED) FAX: Gene Hernandez MD [phone] Leonardo: B St: REG FAX: Luisito Lagunas MD [phone] Name: SUSAN JIMÉNEZ [facility] : 3 Age/S: 88/M [address] [facility] Unit #: [id number] Loc: [place] [address] Phys: Luisito Lagunas MD Acct: [id number] Dis Date: Status: REG CLI PHONE #: [phone] Exam Date: 03/14/2019 1130 FAX #: [phone] Reason: MEVOTHELIOMA OR PLEURA EXAMS: CPT CODE: [id number] PET/CT TUMOR SK MIDTH [address]18[address] <Continued> at 1508 Reported and signed by: Balwinder Sherwood M.D. CC: Gene Guzman MD; Luisito Lagunas MD Technologist: Ivana Spaulding RT(N) Trnscrd Date/Time/By: 03/14/2019 (1505) : By: [email or web address] Orig Print D/T: S: 03/14/2019 (3309) PAGE 2 Signed Report - PET/CT TUMOR SK BS [id number] 15:09:00 FAX: Gene Hernandez MD [phone] Leonardo: B St: DEP FAX: Luisito Lagunas MD [phone] Name: SUSAN VAN [facility] : 1930 Age/S: 88/M [address] [facility] Unit #: [id number] Loc: [place] [address] Phys: Luisito Lagunas MD Acct: [id number] Dis Date: Status: DEP CLI PHONE #: [phone] Exam Date: 03/14/2019 1130 FAX #: [phone] Reason: MEVOTHELIOMA OR PLEURA EXAMS: CPT CODE: [id number] PET/CT TUMOR SK MIDTH [address] HISTORY: Mesothelioma staging. COMPARISON: None av ailable. PET/CT SCAN: 10.6 mCi of FDG administered. Images obtaine d from the skull base to the upper thighs 1 hour postinjection. Blood gluc ose snvhf=486 mg/dL. HEAD AND NECK: Intense uptake within th e brain parenchyma limited evaluation. Physiologic pharyngeal uptake. CHEST: Port-A-Cath on the left. Loculated right pleural effusion. Extensive uptake within thickened right pleura within the diaphragmatic pleural surfaces both medially and laterally as well as extensively within the lateral right lower costal pleural surface as well within the mediast inal paracardiac pleural surface. SUV ranging between 4-5.4 consistent wit h mesothelioma. Loss of lung volume and shift the mediastinum towards the right. Uptake within the anterior lateral left lower rib fracture with SUV uptake ranging up to 2.5 likely related to fracture and remodeling. No pa thologic mesenteric, retroperitoneal or retrocrural adenopathy or uptake. No chest wall uptake. ABDOMEN: No hepatic or adrenal uptake. Excretion from both kidneys without abnormal uptake. No splenic or pancre atic uptake. No pathologic mesenteric, retroperitoneal or retrocrural toya opathy or uptake. PELVIS: Excretion into the urinary bladder . No pelvic pathologic adenopathy or uptake. No significant prostate uptak e. MUSCULOSKELETAL: No metastatic disease. IMPRESS ION: Extensive pleural thickening and pleural uptake within th e diaphragmatic right pleura as well as the right lower lateral costal surface and the right paracardiac mediastinal surface. SUV uptake ranging up to 5.4. Uptake within the left lower posterior lateral fract ure left rib likely related to remodeling. No other abnormal uptake to s uggest metastatic disease. PAGE 1 Signed Report (CONTINUED) FAX: Gene Hernandez MD [phone] Leonardo: St: [facility] FAX: Luisito Lagunas MD [phone] Name: SUSAN JIMÉNEZ [facility] : 3 Age/S: 88/M [address] [facility] Unit #: [id number] Loc: [place] [address] Phys: Luisito Lagunas MD Acct: [id number] Dis Date: Status: DEP CLI PHONE #: [phone] Exam Date: 03/14/2019 1130 FAX #: [phone] Reason: MEVOTHELIOMA OR PLEURA EXAMS: CPT CODE: [id number] PET/CT TUMOR SK BS MIDTH 66959 <Continued> at 1509 Reported and signed by: Balwinder Sherwood M.D. CC: Gene Guzman MD; Luisito Lagunas MD Technologist: Ivana Spaulding RT(N) Trnscrd Date/Time/By: 03/14/2019 (0817) : By: [email or web address] Orig Print D/T: S: 03/14/2019 (9808) PAGE 2 Signed Report BASIC METABOLIC [id number] 13:23:00* Test Item Value Reference Range Comments SODIUM (test code=NA) 138 mmol/L 136-145 POTASSIUM (test code=K) 4.1 mmol/L 3.5-5.1 CHLORIDE (test code=CL) 106.0 mmol/L 98-107 CARBON DIOXIDE (test code=CO2) 27.0 mmol/L 21-32 ANION GAP (test code=GAP) 9.1 10-20 GLUCOSE (test code=GLU) 91 mg/dL 74-106 BLOOD UREA NITROGEN (test code=BUN) 9 mg/dL 7-18 GLOMERULAR FILTRATION RATE (test code=GFR) > 60 mL/min >=60 Estimated GFR by using Modified MDRD formula.Chronic kidney disease is defined as either kidney damageor GFR <60 mL/min/1.73 m2 for >3 months. CREATININE (test code=CREAT) 1.00 mg/dL 0.7-1.3 BUN/CREATININE RATIO (test code=BUN/CREA) 8.6 10-20 CALCIUM (test code=CA) 9.0 mg/dL 8.5-10.1 [id number] 13:23:00* Test Item Value Reference Range Comments TROPONIN-I (test code=TROPI) <0.015 ng/mL 0-0.045 BASIC METABOLIC [id number] 13:11:00* Test Item Value Reference Range Comments SODIUM (test code=NA) 138 mmol/L 136-145 POTASSIUM (test code=K) 4.1 mmol/L 3.5-5.1 CHLORIDE (test code=CL) 106.0 mmol/L 98-107 CARBON DIOXIDE (test code=CO2) 27.0 mmol/L 21-32 ANION GAP (test code=GAP) 9.1 10-20 GLUCOSE (test code=GLU) mg/dL 74-106 BLOOD UREA NITROGEN (test code=BUN) 9 mg/dL 7-18 GLOMERULAR FILTRATION RATE (test code=GFR) mL/min >=60 CREATININE (test code=CREAT) mg/dL 0.7-1.3 BUN/CREATININE RATIO (test code=BUN/CREA) 10-20 CALCIUM (test code=CA) 9.0 mg/dL 8.5-10.1 [id number] 13:11:00* Test Item Value Reference Range Comments TROPONIN-I (test code=TROPI) ng/mL 0-0.045 CBC W/O [id number] 13:06:00* Test Item Value Reference Range Comments WHITE BLOOD CELL (test code=WBC) 3.7 K/mm3 4.5-12.5 RED BLOOD CELL (test code=RBC) 3.11 mill/mm3 4.0-5.8 HEMOGLOBIN (test code=HGB) 10.7 gram/dL 13.0-17.5 HEMATOCRIT (test code=HCT) 32.2 % 42.0-52.0 MEAN CELL VOLUME (test code=MCV) 103.5 fL 80-98 MEAN CELL HGB (test code=MCH) 34.4 picogram 27.0-33.0 MEAN CELL HGB CONCETRATION (test code=MCHC) 33.2 gram/dL 33.0-36.0 RED CELL DISTRIBUTION WIDTH (test code=RDW) 16.5 % 11.6-16.2 PLATELET COUNT (test code=PLT) 235 K/mm3 150-450 MEAN PLATELET VOLUME (test code=MPV) 8.7 fL 6.7-11.0 - CT HEAD/BRAIN W/O [id number] 13:03:00 Name: SUSAN VAN [facility] : 1930 Age/S: 88 / M [address] [facility] Unit #: [id number] Loc: [place] [address] Phys: Aquiles Donato MD Acct: [id number] Dis Date: Status: REG ER PHONE #: [phone] Exam Date: 01/30/2019 1257 FAX #: [phone] Reason: headache htn EXAMS: CPT CODE: [id number] CT HEAD/BRAIN W/O CONT 75886 HISTORY: headache htn TECHNIQUE: Noncontrast 2.[address] of the head. Examination acquired within 24 hours of arrival. Automated exposure control for dose reduction; DLP: 755 mGy-cm. COMPARISON: None FINDINGS: No acute hemorrhage. No CT evidence of acute infarct. 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 Moderate periventricular chronic microvascular ischemic changes. No intracranial mass or mass effect. Moderate parenchymal atrophy. No hydrocephalus. No extra-axial fluid collection. Atherosclerotic vascular calcification of the internal carotid and vertebral arteries. Visualized paranasal sinuses are clear. Mastoid air cells and middle ear cavities are clear. Bilateral lens implants. Calvarium and skull base are intact. IMPRESSION: No acute intracranial process. at 1303 Reported and signed by: Janice Kothari D.O. CC: Gene Guzman MD; Aquiles Donato MD Technologist:Susanne Mcbride RT(R),CT; CTDI: DLP: Trnscb Date/Time: 01/30/2019 (1303) [email or web address] Orig Print D/T: S: 01/30/2019 (0263) PAGE 1 Signed Report - CT HEAD/BRAIN W/O CONT 2019-01-30 13:03:00 Name: SUSAN VAN [facility] : 1930 Age/S: 88 / M [address] [facility] Unit #: [id number] Loc: [place] [address] Phys: Aquiles Donato MD Acct: [id number] Dis Date: Status: DEP ER PHONE #: [phone] Exam Date: 01/30/2019 1257 FAX #: [phone] Reason: headache htn EXAMS: CPT CODE: [id number] CT HEAD/BRAIN W/O CONT 53073 HISTORY: headache htn TECHNIQUE: Noncontrast 2.[address] of the head. Examination acquired within 24 hours of arrival. Automated exposure control for dose reduction; DLP: 755 mGy-cm. COMPARISON: None FINDINGS: No acute hemorrhage. No CT evidence of acute infarct. 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 Moderate periventricular chronic microvascular ischemic changes. No intracranial mass or mass effect. Moderate parenchymal atrophy. No hydrocephalus. No extra-axial fluid collection. Atherosclerotic vascular calcification of the internal carotid and vertebral arteries. Visualized paranasal sinuses are clear. Mastoid air cells and middle ear cavities are clear. Bilateral lens implants. Calvarium and skull base are intact. IMPRESSION: No acute intracranial process. at 1303 Reported and signed by: Janice Kothari D.O. CC: Gene Guzman MD; Aquiles Donato MD Technologist:Susanne Mcbride RT(R),CT; CTDI: DLP: Trnscb Date/Time: 01/30/2019 (1646) [email or web address] Orig Print D/T: S: 01/30/2019 (4019) PAGE 1 Signed Report - INJ W FLUOR EVAL CVAD 2018-11-29 14:26:00 Name: SUSAN VAN [facility] : 1930 Age/S: 87 / M [address] [facility] Unit #: [id number] Loc: [place] [address] Phys: Duy Broderick MD Acct: [id number] Dis Date: Status: PRE SDC PHONE #: [phone] Exam Date: 11/25/2018 1015 FAX #: [phone] Reason: PORT CHECK EXAMS: CPT CODE: [id number] INJ W FLUOR EVAL CVAD 32526 Fluoro Time: 26 DAP (Gy m2): 3.15 Air Kerma (mGy): 8 EXAM: Port-A-Cath check with contrast; INFORMATION: Malfunctioning Port-A-Cath; TECHNIQUE AND FINDINGS: Informed consent was obtained and the patient was placed supine on the procedure table. Fluoroscopic evaluation showed a left subclavian Port-A-Cath which appear intact. It was accessed with a Cody needle followed by injection of contrast material. This outlined a patent left brachiocephalic vein and SVC. The tip of the catheter appears to be positioned against the lateral wall of the SVC. IMPRESSION: 1. Intact and patent Port-A-Cath with its tip against the lateral wall of the SVC. 2. No evidence of thrombosis of the SVC or the left brachiocephalic vein. Fluoroscopy Time: 26 sec CAK : 8 mGy DAP : 3150 mGy sq cm at 1427 Reported and signed by: Duy Broderick M.D. CC: Gene Guzman MD; Luisito Lagunas MD; Duy Broderick MD Technologist: Jany Poe RT(R) Trnscb Date/Time: 11/29/2018 (0398) [email or web address] Orig Print D/T: S: 11/29/2018 (4383) PAGE 1 Signed Report - INJ W FLUOR EVAL [id number] 14:26:00 Name: SUSAN VAN [facility] : 1930 Age/S: 87 / M [address] Unit #: [id number] Loc: [place] [address] Phys: Duy Broderick MD Acct: [id number] Dis Date: Status: [facility] PHONE #: [phone] Exam Date: 11/25/2018 1015 FAX #: [phone] Reason: PORT CHECK EXAMS: CPT CODE: [id number] INJ W FLUOR EVAL CVAD 92456 Fluoro Time: 26 DAP (Gy m2): 3.15 Air Kerma (mGy): 8 EXAM: Port-A-Cath check with contrast; INFORMATION: Malfunctioning Port-A-Cath; TECHNIQUE AND FINDINGS: Informed consent was obtained and the patient was placed supine on the procedure table. Fluoroscopic evaluation showed a left subclavian Port-A-Cath which appear intact. It was accessed with a Cody needle followed by injection of contrast material. This outlined a patent left brachiocephalic vein and SVC. The tip of the catheter appears to be positioned against the lateral wall of the SVC. IMPRESSION: 1. Intact and patent Port-A-Cath with its tip against the lateral wall of the SVC. 2. No evidence of thrombosis of the SVC or the left brachiocephalic vein. Fluoroscopy Time: 26 sec CAK : 8 mGy DAP : 3150 mGy sq cm at 1421 Reported and signed by: Duy Broderick M.D. CC: Gene Guzman MD; Luisito Lagunas MD; Duy Broderick MD Technologist: Jany Poe RT(R) Trnscb Date/Time: 11/29/2018 (5073) Sathya Orig Print D/T: S: 11/29/2018 (9927) PAGE 1 Signed Report PROTHROMBIN [id number] 05:33:00 * Test Item Value Reference Range Comments PROTHROMBIN TIME PATIENT (test code=PTP) 11.9 seconds 9.0-14.0 INTERNATIONAL NORMAL RATIO (test code=INR) 1.0 0.8-1.2 The therapeutic range for oral anticoagulant therapy formost indications is an international normalized ratio (INR)of between 2.0 and 3.0. The recommended therapeutic INRrange for various clinical situations is listed below: Clinical Situation INR range Pulmonary e mbolism treatment (2.0-3.0)Venous thrombosis treatmentVenous thrombosis prophylaxis (high risk surgery)Prevention of systemic embolism from: Acute myocardial infarction Valvular heart disease Atrial fibrillation Mechanical prosthetic heart valves (2.5-3.5) IS PATIENT ON ANTICOAGULANTS? NTHROMBOPLASTIN TIME [id number] 05:33:00* Test Item Value Reference Range Comments THROMBOPLASTIN TIME PARTIAL (test code=PTT) 25.0 seconds 25.0-36.5 IS PATIENT ON ANTICOAGULANTS? N- XR CHEST 1 [id number] 05:30:00 FAX: Gene Hernandez MD [phone] Leonardo: St: [facility] FAX: Aquiles Donato MD [phone] Name: SUSAN VAN [facility] : 1930 Age/S: 87/M [address] [facility] Unit #: [id number] Loc: [place] [address] Phys: Aquiles Donato MD Acct: [id number] Dis Date: Status: REG ER PHONE #: [phone] Exam Date: 11/26/2018 0433 FAX #: [phone] Reason: port a cath placement EXAMS: CPT CODE: [id number] XR CHEST 1 V 85429 EXAM: - XR CHEST 1 V HISTORY: Port-A-Cath placement. COMPARISON: None available time of interpretation. FINDINGS: Single AP view of the chest is provided. Port-A- Cath is present with its distal tip projecting over the junction of innom inate vein and SVC. No consolidation. Possible trace right pleural effusio n. No pneumothorax. Status post left shoulder arthroplasty. IMPRESSION: No consolidation. Possible trace right pleu ral effusion. Port-A-Cath as mentioned above. at 4782 Repor ny and signed by: Dex Norris MD CC: Gene Guzman MD ; Aquiles Donato MD Technologist: RT CLOTILDE Trnscrd Date/Time/By: 11/26/2018 (4891) : By: [email or web address] Orig Print D/T: S: 11/26/2018 (0692) PAGE 1 Signed Report - XR CHEST 1 V 2018-11-26 05:30:00 FAX: Gene Hernandez MD [phone] Leonardo: St: [facility] FAX: Aquiles Donato MD [phone] Name: SUSAN VAN [facility] : 1930 Age/S: 87/M [address] [facility] Unit #: [id number] Loc: [place] [address] Phys: Aquiles Donato MD Acct: [id number] Dis Date: Status: DEP ER PHONE #: [phone] Exam Date: 11/26/2018 0433 FAX #: [phone] Reason: port a cath placement EXAMS: CPT CODE: [id number] XR CHEST 1 V 25148 EXAM: - XR CHEST 1 V HISTORY: Port-A-Cath placement. COMPARISON: None available time of interpretation. FINDINGS: Single AP view of the chest is provided. Port-A-Cath is present with its distal tip projecting over the junction of innominate vein and SVC. No consolidation. Possible trace right pleural effusion. No pneumothorax. Status post left shoulder arthroplasty. IMPRESSION: No consolidation. Possible trace right pleural effusion. Port-A-Cath as mentioned above. at 6014 Reported and signed by: Dex Norris MD CC: Gene Guzman MD; Aquiles Donato MD Technologist: RT CLOTILDE Trnscrd Date/Time/By: 11/26/2018 (6064) : By: [email or web address] Orig Print D/T: S: 11/26/2018 (0584) PAGE 1 Signed Report BASIC METABOLIC [id number] 05:29:00* Test Item Value Reference Range Comments SODIUM (test code=NA) 140 mmol/L 136-145 POTASSIUM (test code=K) 4.1 mmol/L 3.5-5.1 CHLORIDE (test code=CL) 105.0 mmol/L 98-107 CARBON DIOXIDE (test code=CO2) 28.0 mmol/L 21-32 ANION GAP (test code=GAP) 11.1 10-20 GLUCOSE (test code=GLU) 103 mg/dL 74-106 BLOOD UREA NITROGEN (test code=BUN) 15 mg/dL 7-18 GLOMERULAR FILTRATION RATE (test code=GFR) 52 mL/min >=60 Estimated GFR by using Modified MDRD formula.Chronic kidney disease is defined as either kidney damageor GFR <60 mL/min/1.73 m2 for >3 months. CREATININE (test code=CREAT) 1.30 mg/dL 0.7-1.3 BUN/CREATININE RATIO (test code=BUN/CREA) 11.5 10-20 CALCIUM (test code=CA) 8.5 mg/dL 8.5-10.1 BASIC METABOLIC [id number] 05:22:00* Test Item Value Reference Range Comments SODIUM (test code=NA) 140 mmol/L 136-145 POTASSIUM (test code=K) 4.1 mmol/L 3.5-5.1 CHLORIDE (test code=CL) 105.0 mmol/L 98-107 CARBON DIOXIDE (test code=CO2) mmol/L 21-32 ANION GAP (test code=GAP) 10-20 GLUCOSE (test code=GLU) mg/dL 74-106 BLOOD UREA NITROGEN (test code=BUN) mg/dL 7-18 GLOMERULAR FILTRATION RATE (test code=GFR) mL/min >=60 CREATININE (test code=CREAT) mg/dL 0.7-1.3 BUN/CREATININE RATIO (test code=BUN/CREA) 10-20 CALCIUM (test code=CA) mg/dL 8.5-10.1 CBC W/AUTO [id number] 05:16:00* Test Item Value Reference Range Comments WHITE BLOOD CELL (test code=WBC) 4.1 K/mm3 4.5-12.5 RED BLOOD CELL (test code=RBC) 3.08 mill/mm3 4.0-5.8 HEMOGLOBIN (test code=HGB) 10.5 gram/dL 13.0-17.5 HEMATOCRIT (test code=HCT) 32.1 % 42.0-52.0 MEAN CELL VOLUME (test code=MCV) 104.2 fL 80-98 MEAN CELL HGB (test code=MCH) 34.1 picogram 27.0-33.0 MEAN CELL HGB CONCETRATION (test code=MCHC) 32.7 gram/dL 33.0-36.0 RED CELL DISTRIBUTION WIDTH (test code=RDW) 15.1 % 11.6-16.2 RED CELL DISTRIBUTION WIDTH SD (test code=RDW-SD) 56.8 fL 37.0-51.0 PLATELET COUNT (test code=PLT) 220 K/mm3 150-450 MEAN PLATELET VOLUME (test code=MPV) 8.5 fL 6.7-11.0 NEUTROPHIL % (test code=NT%) 58.5 % 39.0-69.0 IMMATURE GRANULOCYTE % (test code=IG%) 2.0 % 0.0-5.0 LYMPHOCYTE % (test code=LY%) 23.2 % 25.0-55.0 MONOCYTE % (test code=MO%) 14.1 % 0.0-10.0 EOSINOPHIL % (test code=EO%) 1.7 % 0.0-5.0 BASOPHIL % (test code=BA%) 0.5 % 0.0-1.0 NUCLEATED RBC % (test code=NRBC%) 0.0 % 0-0 NEUTROPHIL # (test code=NT#) 2.40 K/mm3 1.8-7.7 IMMATURE GRANULOCYTE # (test code=IG#) 0.08 x10 3/uL 0-0.03 LYMPHOCYTE # (test code=LY#) 0.95 K/mm3 1.0-5.0 MONOCYTE # (test code=MO#) 0.58 K/mm3 0-0.8 EOSINOPHIL # (test code=EO#) 0.07 K/mm3 0.0-0.5 BASOPHIL # (test code=BA#) 0.02 K/mm3 0.0-0.2 NUCLEATED RBC # (test code=NRBC#) 0.00 K/mm3 0.0-0.1 [id number] 14:00:00 RUN DATE: 03/24/18 [facility] PAGE 1 RUN TIME: 1400 Specimen Inqui ry RUN USER: INTERFACE PATIENT: SUSAN VAN ACCT #: [id number] LOC: GENESIS U #: [id number] AGE/SX: 87/M ROOM: RE03/15/18REG DR: Héctor Meza MD : 32 BED: DIS: STATUS: [facility] TLOC: SPEC #: [id number] RECD: 03/15/18 STATUS: [facility]AMBERTO [facility] #: [id number] REINIER: 03/15/[address] [facility] [address]: Héctor Meza MD ENTERED: 03/15/18 SP TYPE: LIPOMA OTHR DR: Gene Guzman MD ORDERED: GROSS COPIES TO: Héctor Meza MD [address] [place] [address] Gene Guzman MD [address] [place] [address] MARKERS: ABNORMAL TISSUE, INTRADEPARTMENTAL CONSULT PROCEDURES: GROSS (03/24/18100) TISSUES: 1 . SOFT TISSUES, NOS - LIPOMA 2. LEFT TESTIS CLINICAL HISTORY COLLECTION DATE: 03/15/18 LEFT INGUINAL HERNIA, LEFT TESTICULAR MASS COMMENT Sections from the second specimen show dense fibrosis around the cord and the coverings of the testis without significant cytologic atypia or i ncreased mitotic activity. Atrophic change is seen within the testicular parenc hyma and epididymis. The fibrosis noted around the testis appeared to be react antoinette in nature. However, based on the patient's previous history of mesotheliom a the case was sent for review to Dr. Man at [facility] department of pathology. Dr. Man concurs with the interpretation that the fibrotic changes are reactive in nature and compatible with hernia sac ([id number]). In additi on, he reviewed the tissue from the first specimen which is designated as lipom a and noted that atypical lipomatous tumors have been noted to arise from sperm atic cord lipomas. For this reason, multiple additional sections of this speci men were submitted for histologic evaluation. The sections show mature appeari ng adipose tissue with no atypical features. Dr. Meza's office was notif ied of the intial findings and the decision to send the case to Dr. Magda fernando 03/17/2018 at 2:50. Information was left with his nursing CONTINUED ON NEXT PAGE RUN DATE: 03/24/18 [facility] PAGE 2 RUN TIME: 1 400 Specimen Inquiry RUN USER: IGGY ANDUJAR CHETAN Key #: [id number] PATIENT: SUSAN VAN #[id number] (C ontinued) COMMENT (Continued) staff. 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 It consists of a smooth rounded p ortion of yellow fatty tissue measuring 7.7 X up to 4.5 X up to 2.0 cm. A sma ll amount of fibromembranous tissue is attached to the surface of the fat. Th e cut surface of the tissue is pale yellow and homogenous with no areas of hem orrhage or necrosis. Section Code: 1A-1F, community service representative portions. The second specimen is received in formalin, labeled with the patient's name and identified as "left testicle". It consists of a radical orchectomy spec imen including a segment of spermatic cord measuring 11.5 cm in length with di ameter up to 2.2 cm and testicle with its surrounding coverings. The covering have been previously incised revealing the testicle that measures 5.0 X 3.0 X up to 2.4 cm. The coverings have retracted making inking of the surface inac curate. There appears to be a firm mass involving the tunica vaginalis. H owever, dissecting through the tissues suggest that the nodular area identifie d may reapproximate and attach to the epididymis. The fibrous tissue adjacent to it appears to be thickened, however. The epididymis measures 6.0 cm by up to 1.5 by up to 0.5 cm. The cut surface of the testicular parenchyma is dark moody and homogenous with no focal lesions. Section Code: 2A- spermatic cord margin en face; 2B- section with distal CONTINUED ON NEXT PAGE RUN DATE: 03/24/18 [facility] PAGE 3 RUN TIME: 1400 Specimen Inquiry RUN USER: INTERFACE SPEC #: [id number] PATIENT: SUSAN VAN #[id number] (Continued) -- MACROSCOPIC (Continued) epididymis and area of adjac ent thickening and testicular tissue; 2C- additional section with thickened tu renzo and adjacent testicle; 2D- additional section of thickened tunica, more p roximal; 2E- spermatic cord, proximal. GROSS PERFORMED AT [facility] [address] [place] [address] (P) MICROSCOPIC MICROSCOPIC PERFORMED AT [facility] All of the stains, including any controls performed, stain appropriately. [facility] [address] [place] [address] (P) PERFORMING SITE Diagnosis performed at: [facility], [place] [address] [place] [id number] Signed SIGNATURE ON FILE Jaylen Gallardo 03/24/18 1400 END OF REPORT - XR CHEST 2 [id number] 11:19:00 FAX: Héctor Weston MD [phone] Leonardo: St: [facility] FAX: Gene Hernandez MD [phone] Name: SUSAN VAN [facility] : 1930 Age/S: 87/M [address] [facility] Unit #: [id number] Loc: [place] [address] Phys: Héctor Meza MD Acct: [id number] Dis Date: Status: [facility] PHONE #: [phone] Exam Date: 03/10/2018 1232 FAX #: [phone] Reason: PRE OP EXAMS: CPT CODE: [id number] XR CHEST 2 V 51524 HISTORY: Preop. COMPARISON: April 24, 2016. Left Port-A-Cath is unchanged. No acute infiltrates or congestion. Pleural scarring and thickening especially in the right costo phrenic angle is unchanged. COPD. Cardiac and the mediastinal silhouette are normal. DJD. IMPRESSION: No acute infilt rates, effusion or congestion. Pleural thickening space in the right an d COPD. at 1118 Reported and signed by: Balwinder Sherwood M.D. CC: Héctor Meza M.D.; Gene Guzman MD Tech nologist: RT Johnny(R) Trnscrd Date/Ti me/By: 03/10/2018 (7443) : By: [email or web address] Orig Print D/T: S: 03/10/2018 (4478) PAGE 1 Signed Report - PET/CT TUMOR SK [id number] 11:54:00 FAX: Gene Hernandez MD [phone] Leonardo: St: [facility] FAX: Luisito Lagunas MD [phone] Name: SUSAN VAN [facility] : 1930 Age/S: 86/M [address] [facility] Unit #: [id number] Loc: [place] [address] Phys: Luisito Lagunas MD Acct: [id number] Dis Date: Status: UNK PHONE #: [phone] Exam Date: 10/30/2017 1115 FAX #: [phone] Reason: MESOTHELOMA EXAMS: CPT CODE: [id number] PET/CT TUMOR SK MIDTH 14704 HISTORY: Restaging mesothelioma. COMPARISON PET/CT scan from May 29, 2017. PET/CT SCAN: 11 mCi of FDG administe red. Images obtained from the skull base to the upper thighs 1 hour posti njection. Blood glucose level=83. HEAD AND NECK: Intense up take within the brain parenchyma limits evaluation. Physiologic pharyngea l uptake. No pathologic neck uptake. CHEST: Previously note d multiloculated pleural effusion are no longer visible. Thick scar in th e right apex without abnormal uptake. No abnormal lung parenchymal uptake in the rest of the lung either. No pathologic hilar, mediastinal or hilar adenopathy or uptake. Port-A-Cath on the left. No chest wall uptake. ABDOMEN: No abnormal uptake within the peritoneum. No liver or adrenal uptake. 1.2 cm left adrenal nodule without abnormal uptake is stable and unchanged. No right adrenal uptake. Excretion from both kidne ys without abnormal uptake. No splenic or pancreatic uptake. No patholog ic mesenteric, retroperitoneal or retrocrural adenopathy or uptake. No si gnificant bowel uptake. PELVIS: Minimal excretion into the bowel. Excretion into the urinary bladder as well. No pelvic pathologic adenopa thy or uptake. MUSCULOSKELETAL: Mild uptake within C5 vertebral gaurav dy and the right hip that appears degenerative. Hip prosthesis on the rig ht and left shoulder prosthesis as well. IMPRESSION: No abnormal uptake to suggest recurrence of mesothelioma. Resolved loculated right pleural effusion. at 1154 Reported and sig reyna by: Balwinder Sherwood M.D. PAGE 1 Signed Report (CONTINUED) FAX: Gene Hernandez MD [phone] Leonardo: St: [facility] FAX: Luisito Lagunas MD [phone] Name: SUSAN GONG [facility] : [birth year] Age/S: 86/M [address] [facility] Unit #: [id number] Loc: [place] [address] Phys: Luisito Lagunas MD Acct: [id number] Dis Date: Status: UNK PHONE #: [phone] Exam Date: 10/30/2017 1115 FAX #: [phone] Reason: MESOTHELOMA EXAMS: CPT CODE: [id number] PET/CT TUMOR SK BS MIDTH 84623 <Continued> CC: eGne Guzman MD; Luisito Lagunas MD Technologist: CHELY ANNA Trnscrd Date/Time/By: 11/01/2017 (9062) : By: [email or web address] Orig Print D/T: S: 11/01/2017 (5744) PAGE 2 Signed Report AFB CULTURE + [id number] 16:29:00* Test Item Value Reference Range Comments CULTURE (BEAKER) (test yorb=4588) No acid-fast bacilli isolated in 42 days AFB SMEAR (BEAKER) (test ttgm=828) No acid fast bacilli seen AFB CULTURE + [id number] 16:29:00* Test Item Value Reference Range Comments CULTURE (BEAKER) (test tfwi=3856) No acid-fast bacilli isolated in 42 days AFB SMEAR (BEAKER) (test ylhp=946) No acid fast bacilli seen AFB CULTURE + [id number] 16:29:00* Test Item Value Reference Range Comments CULTURE (BEAKER) (test cosn=3783) No acid-fast bacilli isolated in 42 days AFB SMEAR (BEAKER) (test qdjk=729) No acid fast bacilli seen - PET/CT [facility]UMOR SK [id number] 10:39:00 FAX: Gene Hernandez MD [phone] Leonardo: St: [facility] FAX: Luisito Lagunas MD [phone] Name: SUSAN VAN [facility] : 1930 Age/S: 86/M [address] [facility] Unit #: [id number] Loc: [place] [address] Phys: Luisito Lagunas MD Acct: [id number] Dis Date: Status: K PHONE #: [phone] Exam Date: 05/29/2017 1000 FAX #: [phone] Reason: 182.403 EXAMS: CPT CODE: [id number] PET/CT TUMOR SK MIDTH 22171 HISTORY: 182.403. COMPARISON: None available. PET/CT SCAN: 11.2 mCi of FDG administered. Images obtained from the skull base to the upper thighs 1 hour postinjection. Blood glucose l evel=88. HEAD AND NECK: Intense uptake within the brain parenchyma limited evaluation. Physiologic pharyngeal uptake. CHEST: Port-A-Cath on the left. No lung parenchymal uptake. Multiple loculated moderate size pleural effusions on the right side without abnormal uptake. No pathologic hilar, mediastinal or axillary adenopathy or uptake. No c hest wall uptake. ABDOMEN: No hepatic or adrenal metastases or upt lilian. Small adenoma within the left lateral limb of the adrenal. No abnor mal uptake. Unremarkable pancreas and spleen. Excretion from both kidney s. No pathologic mesenteric, retroperitoneal or retrocrural adenopathy or uptake. No significant bowel uptake. PELVIS: Stasis of radi opharmaceutical within the ureters. Excretion into the urinary bladder. No significant bowel uptake. No pelvic pathologic adenopathy or uptake. MUSCULOSKELETAL: No abnormal uptake. IMPRESSION: No lung parenchymal uptake. Loculated multiple moderate size pl eural effusion without uptake. No pathologic hilar, mediastinal or axil clyde adenopathy or uptake. No distant metastases. at 1039 Reported and signed by: Balwinder Sherwood M.D. PAGE 1 Signed Report (CONTINUED) FAX: Gene Jang MD [phone] Leonardo: St: [facility] FAX: Luisito Lagunas MD [phone] Name: SUSAN VAN [facility] : 1930 Age/S: 86/M [address] [facility] Unit #: [id number] Loc: [place] [address] Phys: Luisito Lagunas MD Acct: [id number] Dis Date: Status: UNK PHONE #: [phone] Exam Date: 05/29/2017 1000 FAX #: [phone] Reason: 182.403 EXAMS: CPT CODE: [id number] PET/CT TUMOR SK MIDTH 00501 < Continued> CC: Gene Guzman MD; Luisito Lagunas MD Technologist: CHELY ANNA Trnscrd Date/Time/By: 05/31/2017 (1039) : By: [email or web address] Orig Print D/T: S: 05/31/2017 (8382) PAGE 2 Signed Report FUNGUS CULTURE + [id number] 07:57:00* Test Item Value Reference Range Comments CULTURE (BEAKER) (test ajed=2147) No fungus isolated in 28 days FUNGUS SMEAR (BEAKER) (test cicz=5132) No fungi seen FUNGUS CULTURE + [id number] 07:57:00* Test Item Value Reference Range Comments CULTURE (BEAKER) (test vqnh=8111) No fungus isolated in 28 days FUNGUS SMEAR (BEAKER) (test ocyg=6684) No fungi seen FUNGUS CULTURE + [id number] 07:57:00* Test Item Value Reference Range Comments CULTURE (BEAKER) (test vltp=0063) No fungus isolated in 28 days FUNGUS SMEAR (BEAKER) (test eggl=2517) No fungi seen ANAEROBIC [id number] 04:03:00* Test Item Value Reference Range Comments CULTURE (BEAKER) (test repu=3363) No anaerobes isolated ANAEROBIC [id number] 04:03:00* Test Item Value Reference Range Comments CULTURE (BEAKER) (test tnnq=3149) No anaerobes isolated ANAEROBIC [id number] 08:51:00* Test Item Value Reference Range Comments CULTURE (BEAKER) (test xdsx=7340) No anaerobes isolated TISSUE [id number] 15:56:00Surgical Pathology Report Case: [id number] Authorizing Provider: Shoshana Marks, Collected: 04/14/20179 Ordering Location: [address] Received: 04/15/2017 1024 Service Pathologist: Tasneem Cornell MD Specimens: A) - Lung, Right Upper Lobe, Right Upper Lobe B) - Pleural, Right, Right Pleural Biopsy C) - Pleura, Pleural Biopsy # 2 The small lymphoid aggregates, peritumoral, in this case, are reviewed by Dr. Marcelo Kramer, [facility] Hematopathologist, whose opinion is that these are "focal chronic inflammatory infiltrates, with small lymphocytes and focal follicles, with germinal centers; favor reactive ."Thus, no changes or additional findings need to be added to this patient's original diagnosis.Addendum electronically signed by Tasneem Cornell MD on 04/17/2017 at 3:56 PMA. 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 PLEURA, RIGHT #1, BIOPSY: - SEPARATE FRAGMENTS, CONSISTENT WITH MALIGNANT MESOTHELIOMA EPITHELIOID TYPE, PRESENT IN BLOOD CLOT, TWO ONE MM FRAGMENTS - FIBROADIPOSE, CONNECTIVE TISSUE, CARTILAGE, AND BONE WITH HEMATOPOIETIC MARROW, CONSISTENT WITH RIB, WITHOUT TUMORC. PLEURA, RIGHT #2, BIOPSY: - MALIGNANT MESOTHELIOMA, EPITHELIOID TYPE Signing Pathologist Direct Phone Line: [phone] signed by Tasneem Cornell MD on 04/17/2017 at 12:45 PMThe preliminary results of this case was verbally communicated to Dr. Marks on 04/16/2017, and the final d iagnosis and comments on 04/17/2017 at 12:43pm.The immunohistochemical stains berry pport the diagnosis as rendered; Dr. Velarde agrees with the diagnosis as rende red.In this case, there are some lymphoid aggregates situated adjacent to the me sothelioma. Note is made of this patient's one year history of a lymphocytic ple ural effusion. This portion of the case will be shared with Dr. Stephany Kramer, [employer] [facility] hematopathologist, and additional comments about the lymphoid infiltrate will follow in an addendum report.A. 59938 x1, 89385 x1, 883 41 x4B-C. 56016 x1Cepcraoadia insufficiency, recurrent exudative right pleural e ffusion A. Right upper lobe lung. B. Right pleural biopsy #1. C. Pleural biopsy #2Specimen A: Received fresh labeled "lung, right upper lobe" are two surgically stapled wedges of pulmonary parenchyma measuring 1.5 x 1.5 x 0.7 cm and 3.0 x 2 .5 x 1.5 cm.The pleural surfaces are purple-moody to jordan-white, dusky and wrinkle d. Sectioning reveals pink-moody, homogeneous, spongy, pulmonary parenchyma throug hout. No discrete masses are identified. The specimen is entirely submitted in c assettes A1-A5.Specimen B: Received fresh labeled "right pleural biopsy #1" is a 3.0 x 2.2 x 0.3 cm aggregate of pink-moody to jordan-white, rubbery, wrinkled, fibr omembranous soft tissue. The specimen is entirely submitted in cassette B1.Speci men C: Received fresh labeled "pleural biopsy #2" is a 1.0 x 1.0 x 0.3 cm, pink- moody to jordan-white, rubbery fragment of fibromembranous soft tissue. Sectioning r eveals no discrete masses. The specimen is entirely submitted in cassette C1. DB /Lupe. The pleural surface of the wedge resections show malignant mesothelial lex ls in a tubular growth pattern along the pleural surfaces. Variable regions of small solid and corded nests are present with some discohesive tumor cells. The cells show mild to moderate cytologic atypia with inconspicuous nucleoli. There are frequent single sharply delimited, clear, round intracytoplasmic vacuoles as well. No invasion of pulmonary parenchyma is noted; the surrounding pulmonary p arenchyma shows some focal emphysematous changes.B, C Performed.A panel of immun ohistochemistry is performed with the neoplastic cells staining strongly with ca lretinin and variably and weak, respectively, with D2-40 and WT-1. The tumor lex ls are negative for Napsin A and TTF-1. The above interpretation is consistent with malignant mesothelioma.The following special studies were performed on this case and the interpretation is incorporated in the diagnostic report above:WT-1, Calretinin, Napsin A, TTF-1, and D2-40.The immunohistochemistry test was allyssa stewart and its performance characteristics determined by [facility] tem, Pathology Laboratory. It has not been cleared or approved by the U.S. Food and Drug Administration. The FDA has determined that such clearance or approval is not necessary. The test is used for clinical purposes. It should not be regar ded as investigational or for research. This laboratory is certified under the C linical Laboratory Improvement Amendments of 1988 (CLIA-88) as qualified to perf orm high complexity clinical laboratory testing.SURGICALLY OBTAINED CULTURE + GRAM [id number] 09:11:00* Test Item Value Reference Range Comments CULTURE (BEAKER) (test owcc=1678) No growth GRAM STAIN RESULT (BEAKER) (test uxtw=1527) <1+ WBCs GRAM STAIN RESULT (BEAKER) (test pbuf=82410) No organisms seen SURGICALLY OBTAINED CULTURE + GRAM [id number] 09:11:00* Test Item Value Reference Range Comments CULTURE (BEAKER) (test xjob=4060) No growth GRAM STAIN RESULT (BEAKER) (test tqly=1972) No WBCs GRAM STAIN RESULT (BEAKER) (test dojz=25929) No organisms seen SURGICALLY OBTAINED CULTURE + GRAM [id number] 09:11:00* Test Item Value Reference Range Comments CULTURE (BEAKER) (test wqdj=1423) No growth GRAM STAIN RESULT (BEAKER) (test xczq=1569) 1+ WBCs GRAM STAIN RESULT (BEAKER) (test ygmi=01018) No organisms seen SPIN/CONCENTRATION [id number] 17:11:00* Test Item Value Reference Range Comments CONCENTRATION CHARGED (BEAKER) (test ptcd=7608) Done [id number] 16:30:00Medical Cytology Report Case: [id number] Authorizing Provider: Shoshana Marks, Collected: 04/14/2017 Steve OMALLEY Ordering Location: [facility] Recovery Room 2 Received: 04/15/2017 0908 Pathologist: Zoila Bennett MD Specimen: Trachea, Sputum SPUTUM, TRACHEAL (CYTOSPINS): - NO MALIGNANT CELLS IDENTIFIED Signing Pathologist Direct Phone Line: [phone] signed by Zoila Bennett MD on 04/15/2017 at 4:30 [id number] insufficiencySPUTUM, TRACHEAL2 mls colorless; 4 cytospinsCollected: 036280Rmzolgxg: [id number] [facility], Department of Pathology, [address] [place] [address], Vgozyi [facility], Department of Pathology, [address] [place] [address], JGHGFESL [id number] 11:00:00* Test Item Value Reference Range Comments CYTOLOGY RESULT POINTER (BEAKER) (test ijuy=0238) See Separate Report RAD, CHEST, 1 VIEW, NON [id number] 06:36:00Reason for exam:->s/p VATSFINAL REPORT RAD, CHEST, 1 VIEW, NON DEPT INDICATION: s/p VATS COMPARISON: Prior day's exam TECHNIQUE: Portable frontal view of the chest. IMPRESSION: Stable right-sided chest tube.Cardiomediastinal silhouette stable .Stable small right apical pneumothorax and postsurgical changes from a partial apical pneumonectomy.No acute osseous abnormality. Signed: Dorian Ash MDRep ort Verified Date/Time: 04/15/2017 06:36:20 Reading Location: [address] Consult Reading Room Electronically signed by: DORIAN ASH MD on 01/2017 06:36 AM [id number] 03:42:00* Test Item Value Reference Range Comments MAGNESIUM (BEAKER) (test sxcr=663) 1.5 mg/dL 1.6-2.6 BASIC METABOLIC [id number] 03:42:00* Test Item Value Reference Range Comments SODIUM (BEAKER) (test wlyo=007) 132 meq/L 136-145 POTASSIUM (BEAKER) (test sfoo=380) 4.0 meq/L 3.5-5.1 CHLORIDE (BEAKER) (test hhgr=427) 102 meq/L 98-107 CO2 (BEAKER) (test rtgu=898) 22 meq/L 22-29 BLOOD UREA NITROGEN (BEAKER) (test pxdf=954) 15 mg/dL 7-21 CREATININE (BEAKER) (test ymrn=213) 0.73 mg/dL 0.57-1.25 GLUCOSE RANDOM (BEAKER) (test rdyd=544) 105 mg/dL 70-105 CALCIUM (BEAKER) (test euud=778) 8.4 mg/dL 8.4-10.2 EGFR (BEAKER) (test aadn=0560) 102 mL/min/1.73 sq m ESTIMATED GFR IS NOT ACCURATE CREATININE CLEARANCE IN PREDICTING GLOMERULAR FILTRATION RATE. ESTIMATED GFR IS NOT APPLICABLE FOR DIALYSIS PATIENTS. LACTIC ACID, ARTERIAL, WHOLE [id number] 03:38:00* Test Item Value Reference Range Comments LACTATE BLOOD ARTERIAL (2) (BEAKER) (test lvlo=2481) 0.7 mmol/L 0.5-2.2 Effective 10/10/2015: Units/Reference Range ChangeNew: 0.5-2.2 mmol/L Previous: 5 -20 mg/dLCBC W/PLT COUNT & AUTO [id number] 03:32:00* Test Item Value Reference Range Comments WHITE BLOOD CELL COUNT (BEAKER) (test qlex=680) 10.0 K/ L 3.5-10.5 RED BLOOD CELL COUNT (BEAKER) (test cowc=797) 3.67 M/ L 4.63-6.08 HEMOGLOBIN (BEAKER) (test wsso=446) 12.0 GM/DL 13.7-17.5 HEMATOCRIT (BEAKER) (test yrzh=537) 34.3 % 40.1-51.0 MEAN CORPUSCULAR VOLUME (BEAKER) (test dewh=753) 93.5 fL 79.0-92.2 MEAN CORPUSCULAR HEMOGLOBIN (BEAKER) (test bowj=706) 32.7 pg 25.7-32.2 MEAN CORPUSCULAR HEMOGLOBIN CONC (BEAKER) (test xxvu=213) 35.0 GM/DL 32.3-36.5 RED CELL DISTRIBUTION WIDTH (BEAKER) (test rkwx=747) 13.4 % 11.6-14.4 PLATELET COUNT (BEAKER) (test zyfu=480) 208 K/CU MM 150-450 MEAN PLATELET VOLUME (BEAKER) (test vrwj=921) 8.6 fL 9.4-12.4 NUCLEATED RED BLOOD CELLS (BEAKER) (test wuwm=845) 0 /100 WBC 0-0 NEUTROPHILS RELATIVE PERCENT (BEAKER) (test yhww=454) 86 % LYMPHOCYTES RELATIVE PERCENT (BEAKER) (test jcuw=501) 5 % MONOCYTES RELATIVE PERCENT (BEAKER) (test kbku=106) 7 % EOSINOPHILS RELATIVE PERCENT (BEAKER) (test xunj=564) 0 % BASOPHILS RELATIVE PERCENT (BEAKER) (test fiwz=996) 0 % NEUTROPHILS ABSOLUTE COUNT (BEAKER) (test dlko=160) 8.61 K/ L 1.78-5.38 LYMPHOCYTES ABSOLUTE COUNT (BEAKER) (test iweu=663) 0.51 K/ L 1.32-3.57 MONOCYTES ABSOLUTE COUNT (BEAKER) (test setz=676) 0.70 K/ L 0.30-0.82 EOSINOPHILS ABSOLUTE COUNT (BEAKER) (test nudb=258) 0.01 K/ L 0.04-0.54 BASOPHILS ABSOLUTE COUNT (BEAKER) (test nxub=220) 0.04 K/ L 0.01-0.08 IMMATURE GRANULOCYTES-RELATIVE PERCENT (BEAKER) (test larb=0358) 1 % 0-1 RAD, CHEST, 1 VIEW, NON [id number] 22:45:00Reason for exam:->VATS right upper lobe biopsy and pleural biopsy x 2.FINAL REPORT Chest, portable AP view History: Status post VATS Comparison: Earlier the same day at 1646 IMPRESSION: There is been interval insertion of a right chest tube. There is no sizable right pneumothorax. A small amount of subcutaneous emphysema is present along the right chest wall. No other significant interval changes. Signed: Moncho Finley [facility] Verified Date/Time: 04/14/2017 22:45:12 Reading Location: [facility] C013W Consult Reading Room [id number] 22:26:00* Test Item Value Reference Range Comments MAGNESIUM (BEAKER) (test hjns=303) 1.5 mg/dL 1.6-2.6 BASIC METABOLIC [id number] 22:26:00* Test Item Value Reference Range Comments SODIUM (BEAKER) (test hcoa=046) 134 meq/L 136-145 POTASSIUM (BEAKER) (test zxdg=714) 4.4 meq/L 3.5-5.1 CHLORIDE (BEAKER) (test rvgf=896) 104 meq/L 98-107 CO2 (BEAKER) (test vrfo=529) 19 meq/L 22-29 BLOOD UREA NITROGEN (BEAKER) (test ilgj=018) 15 mg/dL 7-21 CREATININE (BEAKER) (test elnn=566) 0.79 mg/dL 0.57-1.25 GLUCOSE RANDOM (BEAKER) (test gqlw=705) 105 mg/dL 70-105 CALCIUM (BEAKER) (test owpz=410) 8.4 mg/dL 8.4-10.2 EGFR (BEAKER) (test mljb=3349) 93 mL/min/1.73 sq m ESTIMATED GFR IS NOT ACCURATE CREATININE CLEARANCE IN PREDICTING GLOMERULAR FILTRATION RATE. ESTIMATED GFR IS NOT APPLICABLE FOR DIALYSIS PATIENTS. LACTIC ACID, ARTERIAL, WHOLE [id number] 22:22:00* Test Item Value Reference Range Comments LACTATE BLOOD ARTERIAL (2) (BEAKER) (test zrmt=5026) 2.5 mmol/L 0.5-2.2 Effective 10/10/2015: Units/Reference Range ChangeNew: 0.5-2.2 mmol/L Previous: 5 -20 mg/dLCBC W/PLT COUNT & AUTO [id number] 22:12:00* Test Item Value Reference Range Comments WHITE BLOOD CELL COUNT (BEAKER) (test tmiw=866) 6.8 K/ L 3.5-10.5 RED BLOOD CELL COUNT (BEAKER) (test kvqr=112) 3.90 M/ L 4.63-6.08 HEMOGLOBIN (BEAKER) (test tqol=075) 12.5 GM/DL 13.7-17.5 HEMATOCRIT (BEAKER) (test erek=432) 36.7 % 40.1-51.0 MEAN CORPUSCULAR VOLUME (BEAKER) (test rpoj=882) 94.1 fL 79.0-92.2 MEAN CORPUSCULAR HEMOGLOBIN (BEAKER) (test vwmu=876) 32.1 pg 25.7-32.2 MEAN CORPUSCULAR HEMOGLOBIN CONC (BEAKER) (test etaa=394) 34.1 GM/DL 32.3-36.5 RED CELL DISTRIBUTION WIDTH (BEAKER) (test gnny=127) 13.5 % 11.6-14.4 PLATELET COUNT (BEAKER) (test rbsm=033) 222 K/CU MM 150-450 MEAN PLATELET VOLUME (BEAKER) (test vvwa=289) 8.6 fL 9.4-12.4 NUCLEATED RED BLOOD CELLS (BEAKER) (test nuxr=604) 0 /100 WBC 0-0 NEUTROPHILS RELATIVE PERCENT (BEAKER) (test kfem=511) 73 % LYMPHOCYTES RELATIVE PERCENT (BEAKER) (test lisg=369) 13 % MONOCYTES RELATIVE PERCENT (BEAKER) (test ozji=394) 8 % EOSINOPHILS RELATIVE PERCENT (BEAKER) (test owpt=024) 3 % BASOPHILS RELATIVE PERCENT (BEAKER) (test psdp=777) 1 % NEUTROPHILS ABSOLUTE COUNT (BEAKER) (test csym=225) 4.95 K/ L 1.78-5.38 LYMPHOCYTES ABSOLUTE COUNT (BEAKER) (test wrpj=697) 0.90 K/ L 1.32-3.57 MONOCYTES ABSOLUTE COUNT (BEAKER) (test yctd=865) 0.55 K/ L 0.30-0.82 EOSINOPHILS ABSOLUTE COUNT (BEAKER) (test fflb=393) 0.19 K/ L 0.04-0.54 BASOPHILS ABSOLUTE COUNT (BEAKER) (test qial=610) 0.08 K/ L 0.01-0.08 IMMATURE GRANULOCYTES-RELATIVE PERCENT (BEAKER) (test kmnv=8666) 2 % 0-1 BLOOD GAS, [id number] 22:10:00* Test Item Value Reference Range Comments PH ARTERIAL (BEAKER) (test bmvj=572) 7.37 7.35-7.45 PCO2 ARTERIAL (BEAKER) (test kkvz=779) 38 mmHg 35-45 PO2 ARTERIAL (BEAKER) (test varh=796) 127 mmHg 80-90 O2 SATURATION ARTERIAL (BEAKER) (test nmec=792) 98.6 % 96.0-97.0 HCO3 ARTERIAL (BEAKER) (test fjeg=532) 22 mmol/L 21-29 BASE EXCESS ARTERIAL (BEAKER) (test ajju=506) -3.8 mmol/L -2.0-3.0 PATIENT TEMPERATURE (BEAKER) (test qjkb=3906) 35.0 C FIO2 (BEAKER) (test ktmr=1208) 36.0 % CALCIUM, [id number] 22:09:00* Test Item Value Reference Range Comments CALCIUM IONIZED (BEAKER) (test desi=924) 1.18 mmol/L 1.12-1.27 PH, BLOOD (BEAKER) (test dydz=2159) 7.34 CBC W/PLT COUNT & AUTO [id number] 19:06:00* Test Item Value Reference Range Comments WHITE BLOOD CELL COUNT (BEAKER) (test xmsf=642) 6.3 K/ L 3.5-10.5 RED BLOOD CELL COUNT (BEAKER) (test eill=166) 4.02 M/ L 4.63-6.08 HEMOGLOBIN (BEAKER) (test loxd=597) 13.1 GM/DL 13.7-17.5 HEMATOCRIT (BEAKER) (test wznh=629) 38.5 % 40.1-51.0 MEAN CORPUSCULAR VOLUME (BEAKER) (test fixk=383) 95.8 fL 79.0-92.2 MEAN CORPUSCULAR HEMOGLOBIN (BEAKER) (test icbj=820) 32.6 pg 25.7-32.2 MEAN CORPUSCULAR HEMOGLOBIN CONC (BEAKER) (test pljd=894) 34.0 GM/DL 32.3-36.5 RED CELL DISTRIBUTION WIDTH (BEAKER) (test motw=214) 13.5 % 11.6-14.4 PLATELET COUNT (BEAKER) (test hlhz=474) 244 K/CU MM 150-450 MEAN PLATELET VOLUME (BEAKER) (test uyvi=343) 8.9 fL 9.4-12.4 NUCLEATED RED BLOOD CELLS (BEAKER) (test phad=786) 0 /100 WBC 0-0 NEUTROPHILS RELATIVE PERCENT (BEAKER) (test qxzg=488) 67 % LYMPHOCYTES RELATIVE PERCENT (BEAKER) (test fwsm=732) 18 % MONOCYTES RELATIVE PERCENT (BEAKER) (test lbjh=810) 10 % EOSINOPHILS RELATIVE PERCENT (BEAKER) (test uect=282) 3 % BASOPHILS RELATIVE PERCENT (BEAKER) (test rjev=327) 1 % NEUTROPHILS ABSOLUTE COUNT (BEAKER) (test ffhp=399) 4.18 K/ L 1.78-5.38 LYMPHOCYTES ABSOLUTE COUNT (BEAKER) (test giaj=174) 1.13 K/ L 1.32-3.57 MONOCYTES ABSOLUTE COUNT (BEAKER) (test edbp=875) 0.62 K/ L 0.30-0.82 EOSINOPHILS ABSOLUTE COUNT (BEAKER) (test xuay=363) 0.19 K/ L 0.04-0.54 BASOPHILS ABSOLUTE COUNT (BEAKER) (test msxp=002) 0.06 K/ L 0.01-0.08 IMMATURE GRANULOCYTES-RELATIVE PERCENT (BEAKER) (test zjko=9656) 1 % 0-1 BASIC METABOLIC [id number] 18:26:00* Test Item Value Reference Range Comments SODIUM (BEAKER) (test qpjn=638) 134 meq/L 136-145 POTASSIUM (BEAKER) (test jvjg=086) 4.8 meq/L 3.5-5.1 CHLORIDE (BEAKER) (test rzpo=681) 102 meq/L 98-107 CO2 (BEAKER) (test dxkh=961) 21 meq/L 22-29 BLOOD UREA NITROGEN (BEAKER) (test lpwg=057) 13 mg/dL 7-21 CREATININE (BEAKER) (test iydt=733) 0.77 mg/dL 0.57-1.25 GLUCOSE RANDOM (BEAKER) (test ttga=736) 83 mg/dL 70-105 CALCIUM (BEAKER) (test tvkn=960) 9.3 mg/dL 8.4-10.2 EGFR (BEAKER) (test nfqc=7697) 96 mL/min/1.73 sq m ESTIMATED GFR IS NOT ACCURATE CREATININE CLEARANCE IN PREDICTING GLOMERULAR FILTRATION RATE. ESTIMATED GFR IS NOT APPLICABLE FOR DIALYSIS PATIENTS. PROTHROMBIN TIME/[id number] 17:58:00* Test Item Value Reference Range Comments PROTIME (BEAKER) (test smld=301) 13.4 seconds 11.7-14.7 INR (BEAKER) (test suqp=974) 1.0 <=5.9 RECOMMENDED COUMADIN/WARFARIN INR THERAPY RANGESSTANDARD DOSE: 2.0 - 3.0 Inclu rebecca: PROPHYLAXIS for venous thrombosis, systemic embolization; TREATMENT for libra ous thrombosis and/or pulmonary embolus.HIGH RISK: Target INR is 2.5-3.5 for pat ients with mechanical heart valves.RAD, CHEST, 1 VIEW, NON [id number] 17:27:00Reason for exam:->respiratory insufficiencyShould this be performed at the bedside?->YesFINAL REPORT TECHNIQUE: Frontal chest radiograph dated 04/14/2017. CLINICAL HISTORY: Respiratory insufficiency COMPARISON STUDY: Chest radiograph dated 08/22/2013 FINDINGS: Lungs are clear. Blunting of the right costophrenic angle is either due to a trace effusion and/or scarring. No pneumothorax. Cardiomediastinal silhouette is normal in size. No pulmonary edema. Left shoulder arthoplasty is in place. Bones are osteopenic. IMPRESSION: Trace effusion and/or scarring. Signed: Macarena Juaneport Verified Date/Time: 04/14/2017 17:27:55 Reading Location: [facility] Radiology Reading Room - XR HIP W/PEL UNI 2+V [id number] 09:06:00 FAX: Sarmad Trujillo MD [phone] [place]: St: UNK Name: SUSAN GONG [facility] : [birth year] Age/S: 85/M [address] [facility] Unit #: [id number] Loc: [place] [address] Phys: Sarmad García MD Acct: [id number] Dis Date: Status: UNK PHONE #: [phone] Exam Date: 05/07/2016 08 FAX #: [phone] Reason: S/P RT HIP EXAMS: CPT CODE: [id number] XR HIP W/PEL UNI 2+[place] [address] CLINICAL HISTORY: Right hip fracture; status post ORIF TECHNIQUE: Neutral and frog leg AP views of the right hip COMPARISON: 04/16/16 FINDINGS: Status post internal fixation of intertrochanteric right femur fracture with long intramedullary nail, hip screw, and interlocking screw. Progr essive bony callus formation is observed. Right hip joint is not dislocate d. Visualized bony pelvis is intact. Osteopenia. IMPRESS ION: Status post internal fixation of intertrochanteric right femur fracture. Progressive bony callus formation is observed. at 0906 Reported and signed by: Janice Kothari D.O. CC: Madalyn García MD Technologist: RT Johnny(R) Trnscrd Date/Time/By: 05/07/2016 (09) : By: [email or web address] Orig Print D/T: S: 05/07/2016 (0909) PAGE 1 Signed Report - XR FEMUR MIN 2 VWS [id number] 11:44:00 FAX: Gene Hernandez MD [phone] [place]ardo: St: [facility] FAX: Sarmad Trujillo MD [phone] Name: SUSAN VAN [facility] : 1930 Age/S: 85/M [address] [facility] Unit #: [id number] Loc: [place] [address] Phys: Sarmad García MD Acct: [id number] Dis Date: Status: UNK PHONE #: [phone] Exam Date: 04/15/2016 1140 FAX #: [phone] Reason: femur fracture EXAMS: CPT CODE: [id number] XR FEMUR MIN [address] [place] [address] HISTORY: Femur fracture. COMPARISON: None available. Intertrochanteric fracture of the right hip with foreshortening of the femoral neck. Hip joint is narrowed. The knee joint is narrowed. Osteopenia. Vascular calcifications. IMPRESSION: Nondisplaced intertrochanteric fracture of the right hip with foreshortening of the femoral neck. at 1144 Reported and signed b y: Balwinder Sherwood M.D. CC: Gene Guzman MD; Sarmad García MD Technologist: Nadya Natarajan Trnscrd Date/Time/By: 04/15/2016 (1146) : By: [email or web address] Orig Print D/T: S: 04/15/2016 (7946) PAGE 1 Signed Report - XR HIP W/PEL UNI 2+V RT 2016-04-14 22:15:00 [place]ardo: St: [facility] Name: SUSAN GONG [facility] : [birth year] Age/S: 85/M [address] Unit #: [id number] Loc: [place] [address] Phys: Rox Grace MD Acct: [id number] Dis Date: Status: UNK PHONE #: [phone] Exam Date: 04/14/20162152 FAX #: [phone] Reason: FALL WITH HIP PAIN EXAMS: CPT CODE: [id number] XR HIP W/PEL UNI 2+[place] [address] EXAM: Right hip, 3 views; INFORMATION: Right hip pain after fall; FINDINGS: There is an angulated and impacted intertrochanteric fracture of the proximal right femur. The left hip is intact. Diffuse osteoporosis. 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 IMPRESSION: 1. Intertrochanteric fracture of the right hip. 2. Osteoporosis. 3. 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 at 3625 Reported and signed by: Duy Broderick M.D. CC: Technologist: JOSE MCKEON Trncaadrian Date/Time/By: 04/14/2016 (2214) : By: Sathya Orig Print D/T: S: 04/14/2016 (3245) PAGE 1 Signed Report - XR CHEST 1 V 2016-04-14 22:13:00 [place]: B St: RON Name: SUSAN GONG LINDA [facility] : [birth year] Age/S: 85/M [address] Unit #: [id number] Loc: [facility] [place] [address] Phys: Rox Grace MD Acct: [id number] Dis Date: Status: UNK PHONE #: [phone] Exam Date: 04/14/20162152 FAX #: [phone] Reason: PREOP EXAMS: CPT CODE: [id number] XR CHEST 1 V 65142 EXAM: Chest x-ray, one view; INFORMATION: Status post fall, hip pain, preop; FINDINGS: Lungs are hyperinflated. Basilar densities on the right are consistent with atelectatic changes. I cannot rule out infiltrative changes. No e vidence of pulmonary edema. Aortic calcifications and slightly elongated a fabian; normal sized heart. Status post left shoulder arthroplasty. IMPRESSION: 1. COPD. 2. Atelectatic changes on the right and possible infiltrates. Recommend clinical correlation and cons ideration for a CT scan of the chest. Electronicall y Signed by Arcadio Broderick on 04/14/2016 at 22 13 Reported and signed by: Duy Broderick M.D. CC: Technologist: JOSE Bay Date/Time/By: 04/14/2016 (2212) : By: RimaGRW Orig Print D/T: S: 04/14/2016 (7510) PAGE 1 Signed R eport - CT ABD PELVIS W/[id number] 18:04:00 Name: SUSAN VAN [facility] : 1930 Age/S: 84 / M [address] Unit #: [id number] Loc: [place] [address] Phys: Andreia Marquis MD Acct: [id number] Di s Date: Status: [facility] PHONE #: Exam Date: 09/11/20152056 FAX #: Reason: epigastric pain Report Has Been Amended EXAMS: CPT CODE: [id number] CT ABD PELVIS W/CONT 18312 Addendum - 09/11/2015 SIGNED 09/10 ADDENDUM: [id number] CT/CTABPLW ADDEND UM: The described small fat density lesion in the left adrenal gland is consistent with an incidental myelolipoma. Electronical ly Signed by Arcadio Broderick on 09/11/2015 at 1 804 Reported and signed by: Duy Broderick M.D. Transcribed: 09/11/2015 (6436) RimaGRW Report EXAM: CT of the abdomen and pelvis with contrast; INFORMATION: Epigastric pain; TECHNIQUE AND FINDINGS: 5 mm cuts were obtained through the abdomen and pelvis during and after intravenous infus ion of contrast material. There is circumferential thickening of the gastr ic antrum. No other bowel abnormalities. The liver is of normal size and shape; an 8mm cyst is seen in the caudate lobe; no other focal lesion s. No abnormalities of the biliary system. The pancreas is atrophic and without focal lesions. The spleen is unremarkable. The right ad renal gland is unremarkable. A fat density 14 mm lesion is seen in the lef t adrenal gland. Both kidneys of normal size and shape; no hydronephrosis. Homogeneous parenchymal enhancement. Calcifications of the abdomin al aorta and iliac arteries. The urinary bladder is decompressed and shows mild wall thickening probably secondary to underdistention. No pelv ic mass lesions. Scans through the lower chest show a moderate right pleur al effusion associated with minimal dependent atelectasis of the right low er lobe. Otherwise lung bases are clear. IMPRESSION: PAGE 1 Signed Report (CONTINUED) Rj e: SUSAN VAN [facility] : Age/S: 84 / M [address] [facility] Unit #: [id number] Loc: [place], [place] [address] Phys: Napoleon Marquis MD Acct: [id number] Dis Bjorn e: Status: UNK PHONE #: [phone] Exam Date: 09/11/20152056 FAX #: [phone] Reason: epigastric pain Report Has Been Amended EXAMS: CPT CODE: [id number] CT ABD PELVIS W/CONT 17257 <Continued> 1. Wall thickening of the antrum. Recommend clinical correlation and consideration for upper endoscopy. 2. No other significant abdominal or pelvic abnormalities. 3. Moderate right pleural effusion. at 1755 Reported and signed by: Duy Broderick M.D. CC: Andreia Marquis MD; Gene Guzman MD Technologist:Susanne Mcbride RT(R),CT CTDI: DLP: Trnscb Date/Time: 09/11/2015 (1754) [email or web address] Orig Print D/T: S: 09/11/2015 (2056) PAGE 2 Signed Report - XR CHEST 1 [id number] 09:57:00 FAX: Andreia Lopez [phone] [place]: St: [facility] FAX: Samuel Lemon MD [phone] Name: SUSAN VAN [facility] : 1930 Age/S: 84/M [address] [facility] Unit #: [id number] Loc: [place] [address] Phys: Andreia Marquis MD Acct: [id number] Dis Date: Status: UNK PHONE #: [phone] Exam Date: 09/11/2015 0943 FAX #: [phone] Reason: CHEST PAIN EXAMS: CPT CODE: [id number] XR CHEST 1 V 42543 HISTORY: Chest pain. COMPARISON: May 07, 2015. Small right effusion and subsegmental atelectasis with elevated right hemidiaphragm. No definite infiltrates or congestion. Left lung is clear. Cardiac silhouette is normal. Shoulder prosthesis on the left. IMPRESSION: Small right effusion with subsegmental atelectasis without definite infiltrates. E lectronically Signed by Arcadio Sherwood on 09/11/2015 at 0957 Reported and signed by: Balwinder Sherwood M.D. CC: Andreia Upton MD; Samuel Bauer MD Technologist: JOANNE FITZGERALD JR Trnscrd Date/Time/By: 09/11/2015 (09 57) : By: [email or web address] Orig Print D/T: S: 09/11/2015 (1000) PAGE 1 Signed Report - SP THORACENTESIS W/[id number] 16:47:00 Name: SUSAN VAN [facility] : 1930 Age/S: 84 / M [address] [facility] Unit #: [id number] Loc: [place] [address] Phys: Gene Guzman MD Acct: [id number] Dis Date: Status: UNK PHONE #: [phone] Exam Date: 05/07/2015 1513 FAX #: [phone] Reason: EXAMS: CPT CODE: [id number] SP THORACENTESIS W/IMAG 12462 Fluoro Time: 0 DAP (Gy m2): 0 Air Kerma (mGy): 0 REASON FOR EXAM: Right effusion Exam order date: 05/07/2015 3:15 PM PROCEDURE: Ultrasound guided thoracentesis Attending Arcadio: Gene Guzman MD CPT code: 65166, 40006 FINDINGS: After informed consent was obtained, the patient was brought to special procedures. The back was prepped and draped in the usual fashion. All elements of maximal sterile techniques were followed. Ultrasound was first used for assessment of the effusion. US shows mild right effusion. Images of the effusion was subm itted to PACS. 2% local lidocaine was given for local anesthetic. Under real time ultrasound guidance, a micropuncture needle was advanced into th e right thoracic cavity. A guide wire was inserted and an 8-Burmese d rainage catheter was inserted in the thoracic cavity. 650 mL of fluid obta ined. The catheter was removed and hemostasis obtained. Samples were submi tted for gram stain, cultures, cell count, LDH, glucose, and protein. MEDICATIONS: None COMPLICATIONS: No immediate. Blood loss: Less than 5 mL IMPRESSION: 650 mL of fluid norman anh from the right thoracic cavity. at 0832 Reported and signed by: Dread Garrett M.D. CC: Gene Guzman MD echnologist: MARÍA BARRETT Trnscb Date/ Time: 05/07/2015 (1646) [email or web address] Orig Print D/T: S: 04/10 (1630) PAGE 1 Signed Report - XR CHEST 1 [id number] 15:24:00 FAX: Gene Hernandez MD [phone] [place]: St: [facility] Name: SUSAN GONG [facility] : [birth year] Age/S: 84/M [address] [facility] Unit #: [id number] Loc: [place] [address] Phys: Dread Garrett MD Acct: [id number] Dis Date: Status: UNK PHONE #: [phone] Exam Date: 05/07/2015 1510 FAX #: [phone] Reason: PT IN SPECIALS DEPT EXAMS: CPT CODE: [id number] XR CHEST 1 V 08811 HISTORY: Pleural effusion TECHNIQUE: AP chest x-ray COMPARISON: Same date, 7 hours earlier FINDINGS: Resolved right pleural effusion status post thoracentesis. No pneumothorax. Normal heart size. Atherosclerotic vascular calcification of the thoracic aorta. Mediastinal silhouette is unremarkable. IMPRESSION: Resolved right pleural effusion status post thoracentesis. No pneumothorax. * * at 9787 Reported and signed by: Janice Kothari D.O. CC: Gene Guzman MD Technologist: RYAN CHRISTIE RT(R) Trnscrd Date/Time/By: 05/07/2015 (1524) : By: [email or web address] Orig Print D/T: S: 05/07/2015 (0862) PAGE 1 Signed Report - XR CHEST 2 [id number] 08:58:00 FAX: Gene Hernadnez MD [phone] [place]: St: K Name: SUSAN GONG [facility] : [birth year] Age/S: 84/M [address] [facility] Unit #: [id number] Loc: [place] [address] Phys: Gene Guzman MD Acct: [id number] Dis Date: Status: UNK PHONE #: [phone] Exam Date: 05/07/2015 0752 FAX #: [phone] Reason: f/u pleural effusion EXAMS: CPT CODE: [id number] XR CHEST 2 V 82682 HISTORY: Pleural effusion follow-up. COMPARISON: May 04, 2015. No acute infiltrates or congestion is noted. Small right basal effusion persists. Hyperinf lation and scarring. The cardiac and mediastinal silhouette are wi thin normal limits. IMPRESSION: Persistent s mall basal effusion and subsegmental atelectasis. No infiltrates or con gestion. at 0858 Reported and signed by: Balwinder Sehrwood M.D. CC: Gene Guzman MD T echnologist: RYAN RENEE RT(R) Trnscrd Date /Time/By: 05/07/2015 (0858) : By: [email or web address] Orig Print D/T: S: 015 (3177) PAGE 1 Signed Report - CT CHEST W/[id number] 13:04:00 Name: SUSAN VAN [facility] : 1930 Age/S: 84 / M [address] [facility] Unit #: [id number] Loc: [place] [address] Phys: Jovana Alaniz MD Acct: [id number] Di s Date: Status: UNK PHONE #: Exam Date: 05/04/2015 1241 FAX #: Reason: PE PROTOCOL EXAMS: CPT CODE: [id number] CT CHEST W/CO NTRAST 82880 CT ANGIOGRAPHY OF CHEST W ITH CONTRAST HISTORY: Pneumonia; pleural effusion TE CHNIQUE: 1.[address] angiographic images of the chest after bolus IV administration of 100 mL of Isovue-370 contrast. Thin slab maximum intens ity projection (MIP) reconstructions were generated. COMPARISON: C hest x-ray from earlier today FINDINGS: Moderate ri ght pleural effusion with right lower lobe dependent subsegmental atelecta sis. No airspace consolidation. 6 mm subpleural nodule involving the later al left upper lobe. Right upper lobe calcified granulomas. Central airways are patent. No pulmonary embolus. No thoracic aortic aneurysm or dissection. Normal heart size. No pericardial effusion. No mediastinal lymphadenopathy. Visualized thyroid and esophagus are unremarkable. No acute findings within the included upper abdomen. Tiny hepatic cy sts. 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 Upper abdominal vascular calcification. Degenerative changes of the spine. Left glenohumer al arthroplasty. IMPRESSION: Moderate right p leural effusion with right lower lobe dependent subsegmental atelectasis . No airspace consolidation. Electr onically Signed by Janice Kothari D.O. on 05/04/2015 at 1304 Reported and signed by: Janice Kothari D.O. CC: Chidi Alaniz MD Technologist:RAIN KENNEY, RT(R),CT CTDI: DLP: Trnscb Date/Time: 05/04/2015 (9052) [email or web address] Orig Print D/T: S: 05/04/2015 (9684) PAGE 1 Signed Report - XR CHEST 2 [id number] 11:13:00 Name: SUSAN VAN [facility] : 1930 Age/S:84 /M [address] [facility] Unit#:[id number] Loc: [place] [address] Phys: Jovana Alaniz MD Dis Date: PHONE #: [phone] Status: UNK FAX #: [phone] Exam Date: 05/04/2015 Re ason: EVAL FOR PN EXAMS: CPT CODE: [id number] XR CHEST 2 V 91066 HISTORY: Pneumonia NICOLE HNIQUE: PA and lateral chest x-ray COMPARISON: None FINDINGS: Small right pleural effusion. No airspace consolidation. Normal heart size. Atherosclerotic vascular calcification of the thoracic aorta. Mediastinal silhouette is unremarkable. Mild thoracic spondylosis. Left glenohumeral arthroplasty. IMPRESSION: Small right pleural effusion. No airspace consolidation. Electr onically Signed by Janice Kothari D.O. on 05/04/2015 at 1113 Reported and signed by: Janice Kothari D.O. CC: Chidi Alaniz MD Technologist: RAIN KENNEY, RT(R),CT Trnscrpt Data: 05/04/2015 (1113) [email or web address] Orig Print D/T: S: 05/04/2015 (1116) PAGE 1 Signed Report CHEST 2 VIEWS [place] [address] Patient Name: SUSAN VAN JR MR #: [id number] : 1930 Age/Sex: 86/M Req #: [id number] Adm Physician: Ordered by: SHOSHANA PRESTON MD Report #: [id number] Location: [facility] Room/Bed: Procedure: [id number] DX/CHEST 2 VIEWS Exam Date: 09/10/17 Exam Time: 1630 REPORT STATUS: S igned PROCEDURE: Frontal and lateral views of the chest. COMPARISON: Chest radiograph 05/12/2017 INDICATIONS: MESOTHELIOMA FINDINGS: Lines/tubes: Left chest wall port tip overlying the azygos vein, unchanged. Lungs: The lungs are well inflated. Linear opacities in the right lung base with diaphragmatic tenting likely represents atelectasis. Pleura: Mildly increased small right pleural effusion versus pleural thickening. T here is no pneumothorax. Heart and mediastinum: Tortuous aorta with mild calcifications. Otherwise, the heart and the mediastinum are normal. Gaurav valdo: No acute bony abnormality. IMPRESSION: 1. Mildly increased small right pleural effusion versus pleural thickening. 2. Left chest wall port t ip again noted to project over the azygos vein. Dictated by: Jesus Damon M.D. on 09/10/2017 at 17:56 Electronically approved by: Geri Damon M.D. on 09/10/2017 at 17:56 Dictated By: JESUS DAMON MD 55 Transcribe d By: ARCELIA on 09/10/171755 COPY TO: SHOSHANA PRESTON MD CHEST 2 VIEWS [place] [address] Patient Name: SUSAN VAN JR MR #: [id number] : 1930 Age/Sex: 86/M Req #: [id number] Adm Physician: Ordered by: SHOSHANA PRESTON MD Report #: [id number] Location: [facility] Room/Bed: Procedure: [id number] DX/CHEST 2 VIEWS Exam Date: 05/12/17 Exam Time: 1020 REPORT STATUS: S igned PROCEDURE: X-RAY CHEST, TWO VIEWS COMPARISON: 04/24/2017. INDICATIO NS: MESOTHELIOMA FINDINGS: The lungs are well-inflated. Concentric pleural thickening or apical and basal pleural effusion on the right. No pne umothorax. Left subclavian central venous port catheter tip projects over the expected region of the azygos vein, unchanged relative to 04/24. Left hemithorax is clear. Stable cardiomediastinal contour. No acute osseous ab normality. Left shoulder prosthesis is again noted. CONCLUSION: St able position of left subclavian chest port, with the tip projecting over the expected region of the azygos vein. Concentric right pleural thickening v ersus pleural effusion, slightly progressed relative to 04/24/2017. Left krzysztof thorax remains clear. Dictated by: Nedra Khalil M.D. on 05/12/2017 at 11: 49 Electronically approved by: Nedra Khalil M.D. on 05/12/2017 at 11:49 Dictated By: NEDRA KHALIL MD 1149 Transcribed By: ARCELIA on 05/12/17 1149 COPY TO: SHOSHANA PRESTON MD CHEST SINGLE (PORTABLE) [place] [address] Patient Name: SUSAN VAN JR MR #: [id number] : 1930 Age/Sex: 86/M Req #: [id number] Adm Physician: GENE GUZMAN MD Ordered by: OSEI FREGOSO Report #: [id number] Location: MED/SURG Room/Bed: [facility] Procedure: 1117-002 1 DX/CHEST SINGLE (PORTABLE) Exam Date: Exam Time: REPORT STATUS: Signed PROCEDURE: A single AP view of the chest. COMPARISON: [facility], DX, FLUORO GUIDANCE [address]/REM, , 0:00. [facility], DX, CHEST SINGLE (PORTABLE), 2016, 5:37. INDICATIONS: REMOVED CHEST TUBE POST FINDINGS: L frederick/tubes: Right chest tube has been removed. Lucency in the right apex may be related to the previous tube that extended into the apex. There is a left subclavian chest port with the tip angled acutely slightly medially. This ollie ears different in appearance compared to the C-arm images at placement that w ere performed on 04/22/2017. Concern is that the tip is now extending into th e azygos vein whereas previously the tip overlie the SVC. Lungs: The l ungs are well inflated and clear. There is no evidence of pneumonia or pulmon ria edema. Pleura: There is no pleural effusion or pneumothorax. He art and mediastinum: The heart and the mediastinum are unremarkable. Bone s: Partially visualized left shoulder prosthesis. IMPRESSION: 1. No acute cardiopulmonary disease. 2. Status post right chest tube removal without evidence of a pneumothorax. 3. Medial angulation of the chest port catheter tip suggests azygos vein location. Terrence Cheung D.O. Dict ated by: Terrence Cheung D.O. on 04/24/2017 at 13:03 Electronically appro anh by: Terrence Cheung D.O. on 04/24/2017 at 13:03 Dictated B y: TERRENCE CHEUNG DO 1303 Transcribed By: ARCELIA on 04/24/17 1303 COPY TO: OSEI FREGOSO CHEST SINGLE (PORTABLE) [place] [id number] Patient Name: SUSAN VAN JR MR #: [id number] : 1930 Age/Sex: 86/M Req #: [id number] Adm Physician: GENE GUZMAN MD Ordered by: SHOSHANA MARKS MD Report #: [id number] Location: MED/SURG Room/Bed: 108-1 Procedure: 1117-000 4 DX/CHEST SINGLE (PORTABLE) Exam Date: 04/24/17 Bradley madalyn Time: 524 REPORT STATUS: Signed CHEST SINGLE (PORTABLE), 04/24/2017 5:00 AM Technique: CHEST SINGLE (PORTABLE) Comparison: 04/20/2017 [facility]ini [facility] history: S s/p pleurodesis S [id number] S 524 Findings: Stable hear t size. Partially imaged left humeral prosthesis. Impression: 1. Lines/Tu bes: Placement of left port, tip overlying the SVC. Stable right chest tube, t ip over the right lung apex. 2. Postsurgical changes with suture at the right lung apex. Minimal linear atelectasis. 3. Small right apical pneumothorax. Signed by: Dr Aria Ryan MD on 04/24/2017 6:15 AM Dictated By: JULIANNE RYAN MD 4 Transcribed By: TELLY on 04/24/17614 COPY TO: SHOSHANA MARKS MD CHEST SINGLE (PORTABLE) [place] [address] Patient Name: SUSAN VAN JR MR #: [id number] : 1930 Age/Sex: 86/M Req #: [id number] Adm Physician: GENE GUZMAN MD Ordered by: SHOSHANA PRESTON MD Report #: [id number] Location: MED/SURG Room/Bed: 108-1 Procedure: 1113-0 007 DX/CHEST SINGLE (PORTABLE) Exam Date: 04/20/17 E xam Time: 0550 REPORT STATUS: Signed EXAMINATION: CHEST SINGLE (PORTAB LE) INDICATION: Chest tube COMPARISON: 04/17/2017 FINDINGS: TUBES and LINES: Right chest tube is again visualized in good position with tip at the apex. LUNGS: Lungs are well inflated. Lungs a re clear. There is no evidence of pneumonia or pulmonary edema. PLEURA: Trace of right pleural effusion HEART AND MEDIASTINUM: The cardiomediast inal silhouette is unremarkable. BONES AND SOFT TISSUES: No acute osse ous lesion. Left humeral arthroplasty Soft tissues are unremarkable. UPPE R ABDOMEN: No free air under the diaphragm. IMPRESSION: 1. No acute thoracic abnormality. Stable chest. 2. No evidence of residual pneumothorax. Trace of right pleural effusion Signed by: Dr. Rd López M.D. on 2016 6:26 AM Dictated By: RD BOWMAN MD 5 Transcribed By: TELLY on 625 COPY TO: SHOSHANA PRESTON MD CT ABDOMEN/PELVIS [place] [address] Patient Name: SUSAN VAN JR MR #: [id number] : 1930 Age/Sex: 86/M Req #: [id number] Adm Physician: GENE GUZMAN MD Ordered by: EULALIA JOHANSEN MD Report #: [id number] Loc ation: MED/SURG Room/Bed: 108-1 Procedure: 3486-2644 CT/CT ABDOMEN/PELVIS W Exam Date: 04/18/17 Exam Time : 5 REPORT STATUS: Signed EXAM: CT Abdomen and Pelvis WITH contrast INDICATION: Pain COMPARISON: None. TECHNIQUE: Abdomen and Pe lvis was scanned utilizing a multidetector helical scanner after administratio n of IV contrast. Coronal and sagittal reformations were obtained. IV CONTRAST: Same dose same day chest CT. COMPLICATION S: None RADIATION DOSE: Total DLP:Same dose same day chest CT. mGy*c m Estimated effective dose: (DLP x 0.015 x size factor) mSv CTDIvo l has been reviewed. It is below the limits set by the Radiation Protocol Comm [facility] ([facility]). FINDINGS: Abdomen: Lung Bases: See concomitant chest CT. Solid Organs: 19 mm nodule left adrenal gland with postcontrast Hounsfield units of 19 consistent with adenoma. Pancreas is markedly atrophic, limiting evaluation. Tiny hypodensity liver axial image 13 and 24. Upper GI Tract: Small hiatal hernia. No small bowel obstructive changes. Vascula rity: Moderate aortic vascular calcifications with no aneurysm. Lymph Nodes : No suspicious aortocaval or mesenteric lymph nodes by size criteria. No abno rmality of the omentum. Other: None. Pelvis: Bladder: Locu le of gas, likely due to recent instrumentation. Correlation recommended. Other: Patulous inguinal canals. [place] artifact from right hip prosthesis. Colon: Moderate colonic stool. Lack of enteric contrast limits evaluation. Bones: Advanced lumbar degenerative changes. Femoral intramedullary erik with proximal dynamic hip screw and prominent surrounding heterotopic ossification. IMPRESSION: 1. No definite acute finding within the abdomen or pelvis. 2. Please see above for multiple chronic findings. 3. Please see c oncomitant CT abdomen. Signed by: Dr. Debra Diaz MD on 04/18/2017 7:02 P M Dictated By: DEBRA DIAZ MD 01 Transcribed By: TELLY on 04/18/171901 COPY TO: EULALIA JOHANSEN MD CT CHEST W [place] [address] Patient Name: SUSAN VAN JR MR #: [id number] : 1930 Age/Sex: 86/M Req #: [id number] Adm Physician: GENE GUZMAN MD Ordered by: EULALIA JOHANSEN MD Report #: [id number] Location: MED/SURG Room/Bed: [facility] Procedure: [id number] CT/CT CHEST W Exam Date: 04/18/17 Exam Time: 1819 REPORT STATUS: Signed EXAM: CT Chest WITH contrast INDICATION: Mal ignant mesothelioma COMPARISON: None. TECHNIQUE: The Chest was scan reyna utilizing a multidetector helical scanner after administration of IV contr ast. Coronal and sagittal reformations were obtained. Reformatted axial MIP im ages were obtained and reviewed. IV CONTRAST: 100 mL Omnipaque 37 0 COMPLICATIONS: None RADIATION DOSE: Total D LP: 964 mGy*cm Estimated effective dose: (DLP x 0.015 x size factor) mSv CTDIvol has been reviewed. It is below the limits set by the Radiation Protocol Committee ([facility]). FINDINGS: Lines and Tubes: Right thoracost carisa tube present with tip near right apex. Lower Neck: Left thyroid lobe ap pears surgically absent. Heart and Great Vessels: The aorta and main pulmon ria artery measure 37 and 21 mm. respectively. The cardiothoracic radio measu res 05/04. Focal prominence right pulmonary artery 26 mm. Left pulmonary adam ry 21 mm. No pulmonary embolus. No pericardial effusion. Advanced coronary art sangeeta vascular calcifications. Lymph Nodes: [place] artifact from contrast l imits mediastinal evaluation. No definite enlarged lymph nodes by size criteri a. Lungs: Small to moderate right apical pneumothorax. Linear opacity righ t apex with areas of increased density likely representing postsurgical change . Dependent opacities in the lung bases have the appearance of atelectasis. Th ere are a few small calcified pleural plaques. Upper abdomen: Please see concomitant CT abdomen. Bones and Soft Tissues: Degenerative changes spine with scattered Schmorl's nodes. IMPRESSION: 1. No pulmonary embolus. 2. Right thoracostomy tube with small to moderate right apical pneumotho rax. 3. Calcified pleural plaques. 4. Prominence pulmonary arteries which can be seen in the setting of pulmonary hypertension. 5. Advanced coronary artery vascular calcifications. 6. Please see concomitant CT abdo men. Signed by: Dr. Debra Diaz MD on 04/18/2017 6:57 PM Dictated By: DEBRA DIAZ MD 1 857 Transcribed By: TELLY on 04/18/17 4887 COPY TO: EULALIA JOHANSEN MD CHEST SINGLE (PORTABLE) [place] [address] Patient Name: SUSAN VAN JR MR #: [id number] : 1930 Age/Sex: 86/M Req #: [id number] Adm Physician: GENE GUZMAN MD Ordered by: SHOSHANA PRESTON MD Report #: [id number] Location: MED/SURG Room/Bed: [facility] Procedure: 1110-0 003 DX/CHEST SINGLE (PORTABLE) Exam Date: 04/17/17 E xam Time: 06 REPORT STATUS: Signed EXAMINATION: CHEST SINGLE (PORTAB LE) INDICATION: Chest tube follow-up COMPARISON: 2016 FINDINGS: TUBES and LINES: Right chest tube is again visualize d in good position with tip at the apex. LUNGS: Lungs are well inflated. Lungs are clear. There is no evidence of pneumonia or pulmonary edema. PLEURA: Trace of right pleural effusion HEART AND MEDIASTINUM: The card iomediastinal silhouette is unremarkable. BONES AND SOFT TISSUES: No a cute osseous lesion. Left humeral arthroplasty Soft tissues are unremarkable. UPPER ABDOMEN: No free air under the diaphragm. IMPRESSION: 1. No acute thoracic abnormality. 2. No evidence of residual pneumothorax. Trace of right pleural effusion Signed by: Dr. Rd López M.D. on 04/17/2017 7:01 AM Dictated By: RD BOWMAN MD 0701 Transcribed By: TELLY on 04/17/17 070 1 COPY TO: SHOSHANA PRESTON MD CHEST SINGLE (PORTABLE) [place] [address] Patient Name: SUSAN VAN JR MR #: [id number] : 1930 Age/Sex: 86/M Req #: [id number] [facility] Physician: GENE GUZMAN MD Ordered by: SHOSHANA MARKS MD Report #: [id number] L ocation: MED/SURG Room/Bed: [facility] Procedure: 1109-000 6 DX/CHEST SINGLE (PORTABLE) Exam Date: 04/16/17 Bradley bergman Time: 0830 REPORT STATUS: Signed PROCEDURE: CHEST SINGLE (PORTABLE) COMPARISON: 04/14/2017. INDICATIONS: CHEST TUBE DISCONTINUED FINDINGS: Interval removal of right pleural pigtail drainage catheter and placem ent of a surgical thoracostomy tube, with the tube tip projecting over the ri ght lung apex. The radiopaque suture material in the right upper lobe. Trace right apical pneumothorax with an air gap of 1 cm. The left lung remains c lear. Stable cardiomediastinal contour. No acute osseous abnormality. C ONCLUSION: Interval removal of small caliber right pleural drainage cathete r and placement of a surgical thoracostomy tube, positioned as above. Trace right apical pneumothorax. Dictated by: Nedra Khalil M.D. on 04/16/2017 at 9:57 Electronically approved by: Nedra Khalil M.D. on 04/16/2017 at 9 :57 Dictated By: NEDRA KHALIL MD 6 Transcribed By: ARCELIA on 04/16/17956 COPY TO: SHOSHANA MARKS MD CHEST SINGLE (PORTABLE) [place] [address] Patient Name: SUSAN VAN JR MR #: [id number] : 1930 Age/Sex: 86/M Req #: [id number] Adm Physician: GENE GUZMAN MD Ordered by: SHOSHANA PRESTON MD Report #: [id number] Location: MED/SURG Room/Bed: [facility] Procedure: 1107-0 004 DX/CHEST SINGLE (PORTABLE) Exam Date: 04/14/17 E xam Time: 0600 REPORT STATUS: Signed EXAMINATION: CHEST SINGLE (PORTAB LE) INDICATION: Chest tube COMPARISON: 04/11/2017 FINDINGS: TUBES and LINES: Pigtail catheter overlies the lateral right c hest pleural space LUNGS: Lungs are well inflated. There are bibasilar atelectasis. There is no evidence of pneumonia or pulmonary edema. PLEU RA: No pleural effusion or pneumothorax. HEART AND MEDIASTINUM: The cardi omediastinal silhouette is unremarkable. BONES AND SOFT TISSUES: No ac [place] osseous lesion. Left shoulder arthroplasty. Soft tissues are remarkable fo r minimal subcutaneous emphysema at the chest tube site. UPPER ABDOMEN: N o free air under the diaphragm. IMPRESSION: No acute thoracic abnorm ality. Signed by: Dr. Rd López M.D. on 04/14/2017 6:52 AM Dict ated By: RD BOWMAN MD 1 Transcribed By: TELLY on 04/14/17651 COPY TO: SHOSHANA PRESTON MD CHEST SINGLE (PORTABLE) [place] [address] Patient Name: SUSAN VAN JR MR #: [id number] : 1930 Age/Sex: 86/M Req #: [id number] Adm Physician: GENE GUZMAN MD Ordered by: SHOSHANA PRESTON MD Report #: [id number] Location: MED/SURG Room/Bed: [facility] Procedure: 1104-0 002 DX/CHEST SINGLE (PORTABLE) Exam Date: 04/11/17 E xam Time: 0506 REPORT STATUS: Signed CHEST SINGLE (PORTABLE), 04/11/2017 5:00 AM Technique: CHEST SINGLE (PORTABLE) Comparison: 04/10/2017 Clini manuel history: Chest tube Findings: See Impression. Partially imaged left s houlder arthroplasty. Impression: 1. Lines/Tubes: Stable right pigtail pl eural drainage catheter. Mild overlying right chest wall gas. 2. Persistent tiny right basilar pneumothorax. 3. Unchanged right basilar opacity which may be related to atelectasis, reexpansion edema or infection. Signed by: Dr Aria Ryan MD on 04/11/2017 5:43 AM Dictated By: ARIA Puentes MD 2 Transcribed By: TELLY on 04/11/17542 COPY TO: SHOSHANA PRESTON MD CHEST SINGLE (PORTABLE) [place] [address] Patient Name: SUSAN VAN JR MR #: [id number] : 1930 Age/Sex: 86/M Req #: [id number] Adm Physician: GENE GUZMAN MD Ordered by: SHOSHANA PRESTON MD Report #: [id number] Location: MED/SURG Room/Bed: [facility] Procedure: 1103-0 024 DX/CHEST SINGLE (PORTABLE) Exam Date: 04/10/17 E xam Time: 1050 REPORT STATUS: Signed PROCEDURE: A single AP view of t he chest. COMPARISON: Portable chest 04/09/2017. INDICATIONS: CHEST TUBE PLACEMENT FINDINGS: Lines/tubes: Right pleural drainage cathet er. Lungs: Airspace opacity in the right lung base. The left lung is clear . Pleura: Near complete resolution of the right hydropneumothorax. Mini mal right pneumothorax remains. Heart and mediastinum: The heart and the mediastinum are unremarkable. Bones: No acute bony abnormality. Degenerat antoinette changes of the thoracic spine. Left shoulder replacement. IMPRESSIO N: Small right pneumothorax. Airspace opacity in the right lung base ma y represent resolving reexpansion pulmonary edema. Dictated by: Mateo Hathaway M.D. on 04/10/2017 at 11:30 Electronically approved by: Mateo willis M.D. on 04/10/2017 at 11:30 Dictated By: MATEO HATHAWAY MD 1130 Transcribed By: ARCELIA on 04/10/17 1130 COPY TO: SHOSHANA PRESTON MD CHEST XRAY POST PROCEDURE [place] [address] Patient Name: SUSAN VAN JR MR #: [id number] : 1930 Age/Sex: 86/M Req #: [id number] Adm Physician: GENE GUZMAN MD Ordered by: MATEO HATHAWAY MD Report #: [id number] Location: MED/SURG Room/Bed: [facility] Procedure: [id number] DX/CHEST XRAY POST PROCEDURE Exam Date: Exam Time: REPORT STATUS: Signed CHEST XRAY POST PROCEDURE, 04/09/2017 7:00 AM Technique: CHEST XRAY POST PROCEDURE Comparison: 04/08/2017 Clinical history: Post pleural drain placement Findings: See Impression Impression: 1. Lines/Tubes: Placement of right pigtail pleural drainage catheter over the right lower hemithorax. 2. Significantly decreased right pleural effusion with ex vacuo right basilar pneumothorax. 3. Persistent right basilar opacity which may be related to atelectasis or infection. Signed by: Dr Aria Ryan MD on 04/09/2017 5:50 AM Dictated By: ARIA RYAN MD Elect ronically Signed By: ARIA RYAN MD on 11/02/17 0550 Transcribed By: EM Kuo on 04/09/17549 COPY TO: MATEO HATHAWAY MD CHEST TUBE PL W/DRG (IMG INCL) [place] [address] Patient Name: SUSAN VAN JR MR #: [id number] : 1930 Age/Sex: 86/M Req #: [id number] Adm Physician: GENE GUZMAN MD Ordered by: SHOSHANA PRESTON MD Report #: [id number] Location: MED/SURG Room/Bed: [facility] Procedure: 1101-0 002 IR/CHEST TUBE PL W/DRG (IMG INCL) Exam Date: Ex am Time: REPORT STATUS: Signed PROCEDURE: CHEST TUBE PLACEMENT COMPARISON: None. INDICATIONS: Hydropneumothorax. DESCRIPTION OF PROCEDURE: See below. CONCLUSION: Please see the dictation of the ultrasound guided catheter placement for full clinical details. D ictated by: Mateo Hathaway M.D. on 04/10/2017 at 7:49 Electronically appro anh by: Mateo Hathaway M.D. on 04/10/2017 at 7:49 Dictated By: PEPE HATHAWAY MD 8 Transcri bed By: ARCELIA on 04/10/17748 COPY TO: SHOSHANA PRESTON MD IR CONSULT [place] [address] Patient Name: SUSAN VAN JR MR #: [id number] : 1930 Age/Sex: 86/M Req #: [id number] Adm Physician: GENE GUZMAN MD Ordered by: SHOSHANA PRESTON MD Report #: [id number] Location: MED/SURG Room/Bed: 115- Procedure: 1101-0 025 DX/IR CONSULT Exam Date: Exam Time: REPO RT STATUS: Signed PROCEDURE: CHEST TUBE PLACEMENT COMPARISON: None. INDICATIONS: Hydropneumothorax. DESCRIPTION OF PROCEDURE: See emeka lee. CONCLUSION: Please see the dictation of the ultrasound guid ed catheter placement for full clinical details. Dictated by: Mateo alejandro M.D. on 04/10/2017 at 7:49 Electronically approved by: Mateo Hathaway M.D. on 04/10/2017 at 7:49 Dictated By: MATEO HATHAWAY MD Electro nically Signed By: MATEO HATHAWAY MD on 04/10/1749 Transcribed By: ARCELIA on 08/22 COPY TO: SHOSHANA PRESTON MD CHEST 2 VIEWS [place] [address] Patient Name: SUSAN VAN JR MR #: [id number] : 1930 Age/Sex: 86/M Req #: [id number] Adm Physician: GENE GUZMAN MD Ordered by: NEDRA KHALIL MD Report #: [id number] L ocation: MED/SURG Room/Bed: 115- Procedure: 1100-000 7 DX/CHEST 2 VIEWS Exam Date: 04/08/17 Exam Time: 02 15 REPORT STATUS: Signed PROCEDURE: Frontal and lateral views of the chest. COMPARISON: Portable chest 04/06/2017. INDICATIONS: RIGHT S TERRIE PLEURAL EFFUSION, RIGHT SIDE PNEUMOTHORAX DUE TO THORACENTESIS FINDINGS: Lines/tubes: None. Lungs: Right hilar air space opacity. The left lung is clear. Pleura: Moderate right pleural effusion. Right pneumot horax, stable since the previous examination. Heart and mediastinum: T he heart and the mediastinum are normal. Bones: No acute bony abnormality . Degenerative changes of the thoracic spine. IMPRESSION: Right hilar air space opacity may represent pulmonary edema. Right pleural effusion . Stable right pneumothorax. Dictated by: Mateo Hathaway M.D. on 04/08/2017 at 9:36 Electronically approved by: Mateo Hathaway M.D. on 04/08/2017 at 9:36 Dictated By: MATEO HATHAWAY MD 5 Transcribed By: ARCELIA on 04/08/17935 COPY TO: NEDRA KHALIL MD GUIDANCE FOR PROCEDURE [place] [address] Patient Name: SUSAN VAN JR MR #: [id number] : 1930 Age/Sex: 86/M Req #: [id number] Adm Physician: GENE GUZMAN MD Ordered by: GENE GUZMAN MD Report #: [id number] Location: MED/SURG Room/Bed: [facility] Procedure: 09 US/US GUIDANCE FOR PROCEDURE Exam Date: 04/08/17 Exam Time: 1336 REPORT STATUS: Signed PROCEDURE: ULTRASOUND GUIDANCE FOR PROCEDURE COMPARISON: Chest 2 views 04/08/2017. INDICATIONS: Pleural Dr ain Placement COMPLICATIONS: None. MEDICATIONS: None. BLOOD LOSS: None. PROCEDURE: The risks and benefits of the procedure were discussed wi the patient. Questions were answered. An informed consent was obtained. Needlemaker fluoroscopic images were obtained of the chest which demonstrated a ri ght hydropneumothorax. Large pleural effusion is noted on scalp ultrasound im ages. The patient was placed supine on the fluoroscopy table. A safe approach was determined. The right lateral chest wall was prepped and draped in us ual sterile fashion. 1% lidocaine was infused into the subcutaneous tissues f or local anesthesia. Utilizing direct sonographic guidance, an 18 gauge ne edle was advanced into the right pleural space. Aspiration of fluid confirmed proper positioning within the pleural space. A 0.035 inch wire was advanced centrally utilizing ultrasound and fluoroscopic guidance. A single dilation w as performed over the wire with a 10 Burmese dilator. A 12 Burmese all-purpose drainage catheter was advanced over the wire. The catheter was advanced into the right lung base with fluoroscopic guidance. The wire and stylet were norman anh. The catheter was secured into proper position. 120 cc of pleural fluid w as aspirated and sent for further evaluation. The catheter was attached to e pleural suction with system and attached to wall suction. An additional 700 cc were aspirated and a sterile dressing was applied. A completion fluoro scopic image was obtained. The patient tolerated the procedure well. On oc casions the patient was transferred to floor in stable unchanged condition. CONCLUSION: Successful placement of a right pleural drainage rose ter utilizing ultrasound and fluoroscopic guidance. Dictated by: Damien Hathaway M.D. on 04/08/2017 at 14:57 Electronically approved by: Miles Hathaway M.D. on 04/08/2017 at 14:57 Dictated By: MATEO HATHAWAY MD 1901 Transcribed By: ARCELIA on 04/08/17 8237 COPY TO: GENE GUZMAN MD CHEST 2 VIEWS [place] [address] Patient Name: SUSAN VAN JR MR #: [id number] OB: 1930 Age/Sex: 86/M Req #: [id number] Adm Physic ana maria: GENE GUZMAN MD Ordered by: GENE GUZMAN MD Report #: [id number] Location: MED/SURG Room/Bed: [facility] Procedure: 1031-00 47 DX/CHEST 2 VIEWS Exam Date: 04/07/17 Exam Time: 1 325 REPORT STATUS: Signed PROCEDURE: Frontal and lateral views of the chest. COMPARISON: 04/06/17 INDICATIONS: RULE OUT PNEUMOTHORAX, P LEURAL EFFUSION FINDINGS: Lines/tubes: None. Lungs and pleura : There is no pneumothorax. Large right pleural effusion, increased from prior xray. Underlying atelectasis/infiltrate cannot be excluded. Left lung is clear. Heart and mediastinum: The heart and the mediastinum are андрей l. Bones: No acute bony abnormality. left shoukder arthroplasty. IM PRESSION: No pneumothorax. Large right pleural effusion, increased from p rior x-ray. Underlying atelectasis/infiltrate cannot be excluded. Dictated by: Baron Munroe M.D. on 04/07/2017 at 14:38 Electronically a pproved by: Baron Munroe M.D. on 04/07/2017 at 14:38 Dictat ed By: BARON MUNROE MD 1438 Transcribed By: ARCELIA on 04/07/17 1438 COPY TO: GENE GUZMAN MD CHEST SINGLE (NOT PORTABLE) [place] [address] Patient Name: SUSAN VAN JR MR #: [id number] : 1930 Age/Sex: 86/M Req #: [id number] Adm Physician: GENE GUZMAN MD Ordered by: MATEO HATHAWAY MD Report #: [id number] Location: MED/SURG Room/Bed: [facility] Procedure: 2434-1296 DX/CHEST SINGLE (NOT PORTABLE) Exam Date: 04/06/17 E xam Time: 1425 REPORT STATUS: Signed PROCEDURE: A single AP view of t he chest. COMPARISON: Portable chest 04/05/2017. INDICATIONS: POST PLEURAL EFFUSION DRAIN FINDINGS: Lines/tubes: None. Lungs: R ight lung base atelectasis. No parenchymal mass. Pleura: Small right pneum othorax. Moderate right pleural effusion remains. The left side is clear. Heart and mediastinum: The heart and the mediastinum are unremarkable. Bones: No acute bony abnormality. Degenerative changes of the thoracic spin e. Postoperative changes of the left shoulder. IMPRESSION: Moderate right pleural effusion. Small right pneumothorax. The volume of the thor acentesis was limited due to concerns for reexpansion pulmonary edema. Repeat of the thoracentesis on 04/07/2017 for aspiration of the remaining pleural f luid may be of clinical benefit. Dictated by: Mateo Hathaway M.D. on at 15:00 Electronically approved by: Mateo Hathaway M.D. on 2016 at 15:00 Dictated By: MATEO HATHAWAY MD Electronically Sig reyna By: MATEO HATHAWAY MD on 04/06/171499 Transcribed By: ARCELIA on 04/06/17 1500 COPY TO: MATEO HATHAWAY MD THORACENTESIS/US GUIDED [place] [address] Patient Name: SUSAN VAN JR MR #: [id number] : 1930 Age/Sex: 86/M Req #: [id number] Adm Physician: GENE GUZMAN MD Ordered by: GENE GUZMAN MD Report #: [id number] Location: MED/SURG Room/Bed: [facility] Procedure: 07 US/THORACENTESIS/US GUIDED Exam Date: 04/06/17 Ex am Time: 1355 REPORT STATUS: Signed PROCEDURE: ULTRASOUND GUIDED THORAC ENTESIS COMPARISON: None. INDICATIONS: Pleural Effusion FINDINGS: After informed consent was obtained, the patient was placed in the sitting po sition and preliminary ultrasound of the posterior chest identified a safe ro [place] into the right pleural effusion. The overlying skin was prepped and drape d in usual sterile fashion. Lidocaine 1% was used for local anesthesia. Under ultrasound guidance, a centesis needle was advanced into the pleural f luid and 1900 cc were aspirated. The patient tolerated the procedure well and there were no immediate post-procedural complications. A post-thoracentesis chest radiograph will be obtained. CONCLUSION: Uncomplicated ultra sound-guided right thoracentesis with removal of 1900 cc. Dictated by: Mateo Hathaway M.D. on 04/06/2017 at 14:54 Electronically approved by: Damien Hathaway M.D. on 04/06/2017 at 14:54 Dictated By: MATEO LOJA MD 53 Transcribed B y: ARCELIA on 04/06/171453 COPY TO: GENE GUZMAN MD CHEST [facility] (PORTABLE) [place] [address] Patient Name: SUSAN VAN JR MR #: [id number] : 1930 Age/Sex: 86/M Req #: [id number] Adm Physician: Ordered by: COOKIE LABOY MD Report #: [id number] Location: ER Room/Bed: Procedure: [id number] DX/CHEST SINGLE (PORTABLE) Exam Date: 04/05/17 Exam Time: 1540 REPORT STA TUS: Signed Examination: Single AP view of the chest. COMPARISON: None. INDICATION: Difficult breathing DISCUSSION: Lines/tubes: No ne. Lungs: Right lung atelectasis. Left lung is clear. Pleura: Large right pleural effusion. Heart and mediastinum: The heart and the mediasti num are unremarkable. Bones and soft tissues: No acute bony abnormalities. IMPRESSION: Large right effusion with atelectasis. Signed by: Dr. Nguyen Canseco M.D. on 04/05/2017 3:48 PM Dictated By: NGUYEN CANSECO MD 47 [place] scribed By: TELLY on 04/05/171547 COPY TO: COOKIE LABOY MD CT CHEST [address] [address] Patient Name: SUSAN VAN JR MR #: [id number] : 1930 Age/Sex: 86/M Req #: [id number] Adm Physician: Ordered by: SHOSHANA PRESTON MD Report #: [id number] Location: CT Room/Bed: Procedure: [id number] CT/CT CHEST W Exam Date : 03/17/17 Exam Time: 1100 REPORT STATUS: Jaylin d EXAM: CT Chest WITH contrast (PE Protocol) INDICATION: C OMPARISON: None TECHNIQUE: Chest was scanned utilizing a multidetector he lical scanner from the lung apex through the level of the diaphragm after admi nistration of IV contrast. Thin section reconstructions were obtained with spe cial concentration on the pulmonary arteries. Coronal and sagittal reformation s were obtained. Pulmonary embolism protocol was performed. IV CONTRAST : 100 mL of Isovue-370 COMPLICATIONS: Chest CT dated 11/26/2015 RADIATI ON DOSE: Total DLP: 532.37 mGy*cm Estimated effective dose: (DLP x 0.014 x size factor) mSv CTDIvol has been reviewed. It is below the valencia its set by the Radiation Protocol Committee (RPC). FINDINGS: LINES/ TUBES: None. LUNGS, PLEURA, AND AIRWAYS: No filling defect is identified wi thin the pulmonary arteries to the segmental level. Large right pleural effusi on with compressive atelectasis of the right lower lobe and most of the right middle lobe. Left upper lobe calcified granuloma (series 3, image 56). There are additional right upper lobe calcified granulomas or focal calcified pleur al plaques (series 2, image 40-42). HEART AND MEDIASTINUM: The thyroid gl and is grossly unremarkable. No mediastinal, hilar or axillary lymphadenopath y. The heart is normal in size.. There is no pericardial effusion. . Corina n pulmonary artery measures 2.5 cm in diameter and the ascending aorta measure s 3.7 cm. UPPER ABDOMEN: 1.7 cm and 1.2 cm left adrenal nodules with human resource intern al attenuations, consistent with adenomas. BONES: Generalized mineralizat ion. Mild right curvature of the thoracic spine. No acute osseous abnormality. SOFT TISSUES: Unremarkable. IMPRESSION: No pulmonary emboli. Lar ge right pleural effusion, significantly increased when compared to CT dated , with collapse of the right lower lobe and most of the right middle l obe. Signed by: Dr. Baron Munroe MD on 03/17/2017 12:44 PM Dictate d By: BARNO MUNROE MD 1 244 Transcribed By: TELLY on 03/17/17 0958 COPY TO: SHOSHANA PRESTON
[2019-08-11] MEDS ORDERED: SODIUM CHLORIDE 0.9% 1000ML 1,000 ML IV STA (12:52)
[2019-08-11] MEDS ORDERED: CEFEPIME 1GM/NS 0.9% 50 ML 50 ML IV SCH (13:15)
[2019-08-11] MEDS ORDERED: ADENOSINE 6MG/2ML 2 ML ONE (13:18)
[2019-08-11] MEDS ORDERED: AMIODARONE HCL 360MG 200 ML IV SCH ×2 (13:30→18:00)
[2019-08-11 13:40] LABS: BASOPHILS # (AUTO) 0.1 (0.0-0.1); EOSINOPHILS # (AUTO) 0.3 (0.0-0.4); EOSINOPHILS % 2.8 % (0.0-6.0); HEMATOCRIT 35.5 % (38.2-49.6); HEMOGLOBIN 11.5 g/dL (14.0-18.0); LYMPHOCYTES % 10.8 % (18.0-39.1); MEAN CORPUSCULAR HEMOGLOBIN 30.3 pg (28-32); MEAN CORPUSCULAR HGB CONC 32.4 g/dL (31-35); MEAN CORPUSCULAR VOLUME 93.7 fL (81-99); MONOCYTES # (AUTO) 1.2 (0.2-0.8); MONOCYTES % 13.1 % (4.4-11.3); NEUTROPHILS # (AUTO) 6.3 (2.1-6.9); NEUTROPHILS % 70.2 % (38.7-80.0); PLATELET COUNT 304 x10e3/uL (140-360); RED BLOOD COUNT 3.79 x10e6/uL (4.3-5.7); RED CELL DISTRIBUTION WIDTH 17.2 % (11.7-14.4)
[2019-08-11] MEDS ORDERED: AMIODARONE HCL 150MG 100 ML IV ONE (13:50)
[2019-08-11 13:52] LABS: INR 1.01; PROTHROMBIN TIME 13.9 seconds (11.9-14.5)
[2019-08-11 13:53] LABS: PARTIAL THROMBOPLASTIN TIME 25.9 seconds (23.8-35.5)
[2019-08-11] MEDS ORDERED: AMIODARONE HCL 150MG 100 ML ONE (13:54)
--- NOTE | 2019-08-11 13:58 | Diagnostic Imaging Report ---
EXAMINATION: CHEST SINGLE (PORTABLE) INDICATION: Hypotension COMPARISON: Chest radiograph 04/24/2017 FINDINGS: LINES/TUBES:Right pleural catheter in place. Left chest port with catheter tip at the superior vena cava. EKG leads overlie the chest. LUNGS:The left lung is well inflated. Right lung volumes are low. Airspace opacity at the right lung base silhouettes the right hemidiaphragm. PLEURA:Moderate right pleural effusion. No pneumothorax. MEDIASTINUM:The cardia mediastinal silhouette appears enlarged. BONES/SOFT TISSUES:No acute osseous injury. ABDOMEN:No free air under the diaphragm. IMPRESSION: Moderate right pleural effusion. Right pleural drainage catheter in place. Airspace opacities at the right lung base may represent atelectasis or alternatively superimposed aspiration or pneumonia in the proper clinical setting. Signed by: Flower Penny MD on 08/11/2019 1:56 PM
[2019-08-11] MEDS ORDERED: VANCOMYCIN 1GM/NS 250 ML 250 ML IV ONE (14:00)
[2019-08-11] MEDS ORDERED: AMIODARONE HCL 900 MG in DEXTROSE 5 % 500ML BOTTLE 500 ML IV SCH (14:00)
[2019-08-11 14:01] LABS: ALANINE AMINOTRANSFERASE 12 IU/L (0-55); ALBUMIN 2.5 g/dL (3.5-5.0); ALBUMIN/GLOBULIN RATIO 0.7 (0.8-2.0); ALKALINE PHOSPHATASE 105 IU/L (40-150); ANION GAP 10.9 mmol/L (8-16); BLOOD UREA NITROGEN 12 mg/dL (7-26); BUN/CREATININE RATIO 15 (6-25); CALCIUM 8.7 mg/dL (8.4-10.2); CARBON DIOXIDE 25 mmol/L (22-29); CHLORIDE 100 mmol/L (98-107); CREATINE KINASE 45 IU/L (30-200); CREATININE, SERUM 0.81 mg/dL (0.72-1.25); EST GLOMERULAR FILTRATION RATE > 60 ML/MIN (60-); GLUCOSE 109 mg/dL (74-118); MAGNESIUM 1.8 MG/DL (1.3-2.1); POTASSIUM 3.9 mmol/L (3.5-5.1); SODIUM 132 mmol/L (136-145)
[2019-08-11] MEDS ORDERED: AMIODARONE 900MG 500 ML IV SCH ×2 (14:15→20:20)
[2019-08-11 15:56] LABS: CLARITY,URINE CLEAR (CLEAR); COLOR,URINE YELLOW (YELLOW)
[2019-08-11 15:57] LABS: BILIRUBIN,URINE NEGATIVE (NEGATIVE); KETONES,URINE NEGATIVE (NEGATIVE); LEUKOCYTE ESTERASE ,URINE NEGATIVE (NEGATIVE); NITRITE,URINE NEGATIVE (NEGATIVE); PROTEIN,URINE DIPSTICK NEGATIVE (NEGATIVE); URINE UROBILINOGEN 0.2 mg/dL (0.2 - 1)
--- NOTE | 2019-08-11 16:44 | NUR ---
ATTEMPTED TP CALL REPORT, WAS TOLD THEY WOULD CALL BACK TO GET REPORT.
--- NOTE | 2019-08-11 17:04 | NUR ---
[facility] HERE TO TRANSPORT PATIENT TO RECEIVING FACILITY.
--- NOTE | 2019-08-12 00:30 | Consultation ---
DATE OF CONSULTATION: 08/11/2019 CONSULTING PHYSICIAN: Luisito Lagunas, Hematology-Oncology Service. REASON FOR CONSULTATION: Evaluation and management of the patient with metastatic mesothelioma presented with shortness of breath and palpitation. HISTORY OF PRESENTING ILLNESS: Mr. Jade is a very pleasant 88-year-old man who is in my clinic, patient has a known diagnosis of metastatic mesothelioma, who was initially diagnosed back in April of 2018 when he was presented with shortness of breath and underwent surgery confirming malignant mesothelioma. He has been started on systemic chemotherapy and has overall done well. Most recently, he was started on immunotherapy. His disease continues to be stable. Recently, he was hospitalized to [facility] due to shortness of breath and retrocardiac density, but he felt to be empyema versus malignant lesion. He was seen and evaluate by Infection Disease Service as well as Pulmonary Service and had drain in place. Now, he present through the emergency department again due to shortness of breath and palpitation. He underwent echocardiogram revealing large pericardial effusion suspected of causing pericardial tamponade. Hematology-Oncology has been consulted to assist with the management. Presently, the patient is lying comfortably, not in acute distress. Still having mild shortness of breath. Most daughters are at bedside. PAST MEDICAL HISTORY: 1. Malignant mesothelioma as mentioned above. 2. Hypertension. 3. Hyperlipidemia. 4. Gastroesophageal reflux disease. SOCIAL HISTORY: Denies any history of smoking, alcohol use, or illicit drug use. FAMILY HISTORY: Positive for diabetes mellitus and hypertension. ALLERGIES: LACTULOSE. CURRENT MEDICATIONS: Reviewed as per electronic medical record. REVIEW OF SYSTEMS: A 14-point review of systems negative except as mentioned in the history of presenting illness. PHYSICAL EXAMINATION: VITAL SIGNS: Reviewed as per electronic medical record. HEENT: PERRLA. Extraocular movements intact. Head is atraumatic and normocephalic. NECK: Supple. CV: S1 and S2 audible. RESPIRATORY: Decreased bilateral air entry. ABDOMEN: Soft. Positive bowel sounds. EXTREMITIES: Negative edema. NEURO: The patient is alert and awake. LABORATORY DATA: White blood cell count of 9.0, hemoglobin 11.5, hematocrit 35.5, platelets 304. BUN 12, creatinine 0.8. ASSESSMENT AND PLAN: Mr. Jade is a very pleasant 88-year-old gentleman, who is in my clinic, the patient has known diagnosis of malignant mesothelioma for which he has received systemic chemotherapy followed by immunotherapy. Recently, he was hospitalized at [facility] due to concern of right empyema versus malignant lesion in the retrocardiac area. He had drain in placed. He was started on IV antibiotics by Infectious Disease physician. Now, he presents to the emergency department due to palpation and shortness of breath. He underwent echocardiogram revealing large pericardial effusions. He has been seen and evaluated by Cardiothoracic Surgery and recommended to be transferred to [facility] for possible pericardiocentesis or pericardial window. Hematology-Oncology has been consulted to assist with the management. I reviewed the record at full length with the patient about his current disease and importance of further workup. Case also discussed in detail with Cardiothoracic Surgery with the anticipation that the patient may need pericardial window. However, repeat echo will be performed at [facility]. From a cancer standpoint, he has low volume disease. Case also discussed with primary care provider. INTERPRETATION: Critical care time spent more than 35 minutes. MD VIELKA Vasquez/MODL /[id number]
== END 2019-08-11 17:50 | disposition other institution (70) ==
LOC: ER 12:31
DX: R06.09 Other forms of dyspnea (principal); J90 Pleural effusion, not elsewhere classified; C45.7 Mesothelioma of other sites; I10 Essential (primary) hypertension; J44.9 Chronic obstructive pulmonary disease, unspecified; I25.10 Atherosclerotic heart disease of native coronary artery without angina pectoris
CPT/HCPCS: 36415; 71045; 80053; 81001; 82550; 82553; 83605; 83735; 83880; 84484; 85025; 85610; 85730; 87040; 87086; 93005; 93306; 99284; J0153; J0692; J3370; J7030